=== PATIENT | female | born 1970 | race Caucasian/White ===

== ENCOUNTER 2019-10-19 17:50 | Emergency (ER) | payer BC ==
[2019-10-19] MEDS ORDERED: SODIUM CHLORIDE 0.9% 500 ML 500 ML IV STA (18:04)
[2019-10-19] MEDS ORDERED: SODIUM CHLORIDE 0.9% 1,000 ML IV STA ×2 (18:04)
[2019-10-19] MEDS ORDERED: MORPHINE SULFATE 4 MG/ML SYRINGE IV STA (18:04)
--- NOTE | 2019-10-19 18:05 | ED ---
Abdominal Pain HPI - General Chief Complaint: Abdominal Pain Stated Complaint: abdominal pain Time Seen by Provider: 10/19/19 18:01 Source: family, RN notes reviewed, old records reviewed Mode of arrival: wheelchair Limitations: altered mental status - History of Present Illness Initial Comments: this is a 49-year-old female dysuria for evaluation of severe epigastric abdominal pain and bloating. No history of abdominal surgeries the patient presents today for evaluation of history of GI bleed and symptoms occurred now that are similar to then. They deny find a source of her bleeding then. Symptoms began as afternoon and progressively worsening. Mild nausea no vomiting no chest pain or shortness of breath epigastric pain that is severe with no modifying factors. MD Complaint: abdominal pain -: hour(s) Location: epigastric Radiation: epigastric Migration to: no migration Severity: mild Severity scale (1-10): 3 Quality: cramping, stabbing, aching Consistency: constant Improves With: nothing Worsens With: nothing Associated Symptoms: nausea, vomiting - Related Data Home Medications Medication Instructions Recorded Confirmed Multivitamins, Thera [Multivitamin 1 tab PO DAILY 10/19/19 10/19/19 (formulary)] Allergies Allergy/AdvReac Type Severity Reaction Status Date / Time No Known Allergies Allergy Verified 10/19/19 20:38 Review of Systems ROS Statement: Those systems with pertinent positive or pertinent negative responses have been documented in the HPI. ROS Other: All systems not noted in ROS Statement are negative. Past Medical History Past Medical History: No Reported History History of Any Multi-Drug Resistant Organisms: None Reported Additional Past Surgical History / Comment(s): abdominal surgery Past Psychological History: No Psychological Hx Reported Smoking Status: Never smoker Past Alcohol Use History: None Reported Past Drug Use History: None Reported General Exam Limitations: altered mental status General appearance: alert, in no apparent distress Head exam: Present: atraumatic, normocephalic, normal inspection Eye exam: Present: normal appearance, PERRL, EOMI. Absent: scleral icterus, conjunctival injection, periorbital swelling ENT exam: Present: normal exam, mucous membranes moist Neck exam: Present: normal inspection. Absent: tenderness, meningismus, lymphadenopathy Respiratory exam: Present: normal lung sounds bilaterally. Absent: respiratory distress, wheezes, rales, rhonchi, stridor Cardiovascular Exam: Present: regular rate, normal rhythm, normal heart sounds. Absent: systolic murmur, diastolic murmur, rubs, gallop, clicks GI/Abdominal exam: Present: soft, tenderness (abdominal pain epigastric), normal bowel sounds. Absent: distended, guarding, rebound, rigid Extremities exam: Present: normal inspection, full ROM, normal capillary refill. Absent: tenderness, pedal edema, joint swelling, calf tenderness Back exam: Present: normal inspection Neurological exam: Present: alert, oriented X3, CN II-XII intact Psychiatric exam: Present: normal affect, normal mood Skin exam: Present: warm, dry, intact, normal color. Absent: rash Course Vital Signs 10/19/19 10/19/19 10/19/19 17:52 18:08 18:10 Temperature 98.0 F Pulse Rate 84 89 Respiratory 18 14 32 H Rate Blood Pressure 177/94 156/71 O2 Sat by Pulse 98 98 98 Oximetry 10/19/19 10/19/19 10/19/19 18:30 18:50 19:00 Temperature Pulse Rate 84 81 82 Respiratory 14 18 14 Rate Blood Pressure 156/71 158/83 158/83 O2 Sat by Pulse 98 93 L 98 Oximetry - Reevaluation(s) Reevaluation #1: 10/19/19 21:31 records reviewed Reevaluation #2: 10/19/19 21:31 no significant findings for abdominal pain, no current pain Medical Decision Making - Medical Decision Making 49 female here for evaluation of abdominal pain. Patient karen computed tomography scan labwork is normal tolerate oral intake and pain is controlled. Patient will be discharged home - Lab Data Result diagrams: 10/19/19 18:14 10/19/19 18:14 Lab Results 10/19/19 10/19/19 10/19/19 Range/Units 18:04 18:14 18:14 WBC 15.5 H (3.8-10.6) k/uL RBC 4.38 (3.80-5.40) m/uL Hgb 13.3 (11.4-16.0) gm/dL Hct 39.8 (34.0-46.0) % MCV 90.9 (80.0-100.0) fL MCH 30.3 (25.0-35.0) pg MCHC 33.3 (31.0-37.0) g/dL RDW 13.0 (11.5-15.5) % Plt Count 305 (150-450) k/uL Neutrophils % 87 % Lymphocytes % 7 % Monocytes % 4 % Eosinophils % 1 % Basophils % 1 % Neutrophils # 13.5 H (1.3-7.7) k/uL Lymphocytes # 1.0 (1.0-4.8) k/uL Monocytes # 0.6 (0-1.0) k/uL Eosinophils # 0.1 (0-0.7) k/uL Basophils # 0.2 (0-0.2) k/uL PT (9.0-12.0) sec INR (<1.2) APTT (22.0-30.0) sec D-Dimer (<0.60) mg/L FEU Sodium 139 (137-145) mmol/L Potassium 3.9 (3.5-5.1) mmol/L Chloride 105 (98-107) mmol/L Carbon Dioxide 23 (22-30) mmol/L Anion Gap 11 mmol/L BUN 13 (7-17) mg/dL Creatinine 0.76 (0.52-1.04) mg/dL Est GFR (CKD-EPI)AfAm >90 (>60 ml/min/1.73 sqM) Est GFR (CKD-EPI)NonAf >90 (>60 ml/min/1.73 sqM) Glucose 149 H (74-99) mg/dL POC Glucose (mg/dL) 159 H (75-99) mg/dL POC Glu Size Maker ID Rosemary Montano Plasma Lactic Acid Regis (0.7-2.0) mmol/L Calcium 9.6 (8.4-10.2) mg/dL Phosphorus 1.5 L (2.5-4.5) mg/dL Magnesium 1.8 (1.6-2.3) mg/dL Total Bilirubin 0.4 (0.2-1.3) mg/dL AST 32 (14-36) U/L ALT 34 (4-34) U/L Alkaline Phosphatase 102 (38-126) U/L Creatine Kinase 118 (30-135) U/L Troponin I (0.000-0.034) ng/mL NT-Pro-B Natriuret Pep pg/mL Total Protein 8.0 (6.3-8.2) g/dL Albumin 4.5 (3.5-5.0) g/dL Lipase (23-300) U/L Urine Color Urine Appearance (Clear) Urine pH (5.0-8.0) Ur Specific [place] (1.001-1.035) Urine Protein (Negative) Urine Glucose (UA) (Negative) Urine Ketones (Negative) Urine Blood (Negative) Urine Nitrite (Negative) Urine Bilirubin (Negative) Urine Urobilinogen (<2.0) mg/dL Ur Leukocyte Esterase (Negative) Blood Type Blood Type Recheck Bld Type Recheck Status Antibody Screen Spec Expiration Date 10/19/19 10/19/19 10/19/19 Range/Units 18:14 18:14 18:14 WBC (3.8-10.6) k/uL RBC (3.80-5.40) m/uL Hgb (11.4-16.0) gm/dL Hct (34.0-46.0) % MCV (80.0-100.0) fL MCH (25.0-35.0) pg MCHC (31.0-37.0) g/dL RDW (11.5-15.5) % Plt Count (150-450) k/uL Neutrophils % % Lymphocytes % % Monocytes % % Eosinophils % % Basophils % % Neutrophils # (1.3-7.7) k/uL Lymphocytes # (1.0-4.8) k/uL Monocytes # (0-1.0) k/uL Eosinophils # (0-0.7) k/uL Basophils # (0-0.2) k/uL PT 9.7 (9.0-12.0) sec INR 0.9 (<1.2) APTT 24.7 (22.0-30.0) sec D-Dimer 0.40 (<0.60) mg/L FEU Sodium (137-145) mmol/L Potassium (3.5-5.1) mmol/L Chloride (98-107) mmol/L Carbon Dioxide (22-30) mmol/L Anion Gap mmol/L BUN (7-17) mg/dL Creatinine (0.52-1.04) mg/dL Est GFR (CKD-EPI)AfAm (>60 ml/min/1.73 sqM) Est GFR (CKD-EPI)NonAf (>60 ml/min/1.73 sqM) Glucose (74-99) mg/dL POC Glucose (mg/dL) (75-99) mg/dL POC Glu Size Maker ID Plasma Lactic Acid Regis 3.0 H* (0.7-2.0) mmol/L Calcium (8.4-10.2) mg/dL Phosphorus (2.5-4.5) mg/dL Magnesium (1.6-2.3) mg/dL Total Bilirubin (0.2-1.3) mg/dL AST (14-36) U/L ALT (4-34) U/L Alkaline Phosphatase (38-126) U/L Creatine Kinase (30-135) U/L Troponin I (0.000-0.034) ng/mL NT-Pro-B Natriuret Pep 165 pg/mL Total Protein (6.3-8.2) g/dL Albumin (3.5-5.0) g/dL Lipase (23-300) U/L Urine Color Urine Appearance (Clear) Urine pH (5.0-8.0) Ur Specific [place] (1.001-1.035) Urine Protein (Negative) Urine Glucose (UA) (Negative) Urine Ketones (Negative) Urine Blood (Negative) Urine Nitrite (Negative) Urine Bilirubin (Negative) Urine Urobilinogen (<2.0) mg/dL Ur Leukocyte Esterase (Negative) Blood Type Blood Type Recheck Bld Type Recheck Status Antibody Screen Spec Expiration Date 10/19/19 10/19/19 10/19/19 Range/Units 18:14 18:14 18:14 WBC (3.8-10.6) k/uL RBC (3.80-5.40) m/uL Hgb (11.4-16.0) gm/dL Hct (34.0-46.0) % MCV (80.0-100.0) fL MCH (25.0-35.0) pg MCHC (31.0-37.0) g/dL RDW (11.5-15.5) % Plt Count (150-450) k/uL Neutrophils % % Lymphocytes % % Monocytes % % Eosinophils % % Basophils % % Neutrophils # (1.3-7.7) k/uL Lymphocytes # (1.0-4.8) k/uL Monocytes # (0-1.0) k/uL Eosinophils # (0-0.7) k/uL Basophils # (0-0.2) k/uL PT (9.0-12.0) sec INR (<1.2) APTT (22.0-30.0) sec D-Dimer (<0.60) mg/L FEU Sodium (137-145) mmol/L Potassium (3.5-5.1) mmol/L Chloride (98-107) mmol/L Carbon Dioxide (22-30) mmol/L Anion Gap mmol/L BUN (7-17) mg/dL Creatinine (0.52-1.04) mg/dL Est GFR (CKD-EPI)AfAm (>60 ml/min/1.73 sqM) Est GFR (CKD-EPI)NonAf (>60 ml/min/1.73 sqM) Glucose (74-99) mg/dL POC Glucose (mg/dL) (75-99) mg/dL POC Glu Size Maker ID Plasma Lactic Acid Regis (0.7-2.0) mmol/L Calcium (8.4-10.2) mg/dL Phosphorus (2.5-4.5) mg/dL Magnesium (1.6-2.3) mg/dL Total Bilirubin (0.2-1.3) mg/dL AST (14-36) U/L ALT (4-34) U/L Alkaline Phosphatase (38-126) U/L Creatine Kinase (30-135) U/L Troponin I <0.012 (0.000-0.034) ng/mL NT-Pro-B Natriuret Pep pg/mL Total Protein (6.3-8.2) g/dL Albumin (3.5-5.0) g/dL Lipase 108 (23-300) U/L Urine Color Urine Appearance (Clear) Urine pH (5.0-8.0) Ur Specific [place] (1.001-1.035) Urine Protein (Negative) Urine Glucose (UA) (Negative) Urine Ketones (Negative) Urine Blood (Negative) Urine Nitrite (Negative) Urine Bilirubin (Negative) Urine Urobilinogen (<2.0) mg/dL Ur Leukocyte Esterase (Negative) Blood Type O Positive Blood Type Recheck O Pos Bld Type Recheck Status No Antibody Screen NEGATIVE Spec Expiration Date 10/22/2019 - 231310/19/19 Range/Units 19:32 WBC (3.8-10.6) k/uL RBC (3.80-5.40) m/uL Hgb (11.4-16.0) gm/dL Hct (34.0-46.0) % MCV (80.0-100.0) fL MCH (25.0-35.0) pg MCHC (31.0-37.0) g/dL RDW (11.5-15.5) % Plt Count (150-450) k/uL Neutrophils % % Lymphocytes % % Monocytes % % Eosinophils % % Basophils % % Neutrophils # (1.3-7.7) k/uL Lymphocytes # (1.0-4.8) k/uL Monocytes # (0-1.0) k/uL Eosinophils # (0-0.7) k/uL Basophils # (0-0.2) k/uL PT (9.0-12.0) sec INR (<1.2) APTT (22.0-30.0) sec D-Dimer (<0.60) mg/L FEU Sodium (137-145) mmol/L Potassium (3.5-5.1) mmol/L Chloride (98-107) mmol/L Carbon Dioxide (22-30) mmol/L Anion Gap mmol/L BUN (7-17) mg/dL Creatinine (0.52-1.04) mg/dL Est GFR (CKD-EPI)AfAm (>60 ml/min/1.73 sqM) Est GFR (CKD-EPI)NonAf (>60 ml/min/1.73 sqM) Glucose (74-99) mg/dL POC Glucose (mg/dL) (75-99) mg/dL POC Glu Size Maker ID Plasma Lactic Acid Regis (0.7-2.0) mmol/L Calcium (8.4-10.2) mg/dL Phosphorus (2.5-4.5) mg/dL Magnesium (1.6-2.3) mg/dL Total Bilirubin (0.2-1.3) mg/dL AST (14-36) U/L ALT (4-34) U/L Alkaline Phosphatase (38-126) U/L Creatine Kinase (30-135) U/L Troponin I (0.000-0.034) ng/mL NT-Pro-B Natriuret Pep pg/mL Total Protein (6.3-8.2) g/dL Albumin (3.5-5.0) g/dL Lipase (23-300) U/L Urine Color Light Yellow Urine Appearance Clear (Clear) Urine pH 8.5 H (5.0-8.0) Ur Specific [place] 1.018 (1.001-1.035) Urine Protein Negative (Negative) Urine Glucose (UA) Trace H (Negative) Urine Ketones Negative (Negative) Urine Blood Negative (Negative) Urine Nitrite Negative (Negative) Urine Bilirubin Negative (Negative) Urine Urobilinogen <2.0 (<2.0) mg/dL Ur Leukocyte Esterase Negative (Negative) Blood Type Blood Type Recheck Bld Type Recheck Status Antibody Screen Spec Expiration Date - EKG Data -: EKG Interpreted by Me (EKG shows sinus rhythmrate of 99, IL 186, QRS 84, QTC 410) - Radiology Data Radiology results: report reviewed (CTA chest and pelvis is negative for acute disease), image reviewed Disposition Clinical Impression: Abdominal pain Disposition: HOME SELF-CARE Condition: Good Instructions (If sedation given, give patient instructions): Abdominal Pain (ED) Is patient prescribed a controlled substance at d/c from ED?: No Referrals: None,Stated [Primary Care Provider] - 1-2 days
[2019-10-19 18:09] LABS: Glucose,Whole Blood 159 mg/dL (75-99)
[2019-10-19 18:24] LABS: Basophils # (A) 0.2 k/uL (0-0.2); Basophils % (A) 1 %; Eosinophils # (A) 0.1 k/uL (0-0.7); Eosinophils % (A) 1 %; HCT 39.8 % (34.0-46.0); HGB 13.3 gm/dL (11.4-16.0); Lymphocytes % (A) 7 %; MCH 30.3 pg (25.0-35.0); MCHC 33.3 g/dL (31.0-37.0); MCV 90.9 fL (80.0-100.0); Mean Platelet Volume 7.9; Monocytes # (A) 0.6 k/uL (0-1.0); Monocytes % (A) 4 %; Neutrophils # (A) 13.5 k/uL (1.3-7.7); Neutrophils % (A) 87 %; Platelet Count 305 k/uL (150-450); RBC 4.38 m/uL (3.80-5.40); WBC 15.5 k/uL (3.8-10.6)
[2019-10-19] MEDS ORDERED: ONDANSETRON 4 MG/2 ML VIAL IVP STA (18:37)
[2019-10-19] MEDS ORDERED: PANTOPRAZOLE 40 MG/10 ML VIAL IVP STA (18:37)
[2019-10-19 18:38] LABS: D-Dimer 0.4 mg/L FEU (<0.60); INR 0.9 (<1.2); Partial Thromboplastin Time 24.7 sec (22.0-30.0); Prothrombin Time 9.7 sec (9.0-12.0)
[2019-10-19 18:42] LABS: ALT 34 U/L (4-34); AST 32 U/L (14-36); African American GFR (CKD) >90 (>60 ml/min/1.73 sqM); Albumin 4.5 g/dL (3.5-5.0); Alkaline Phosphatase 102 U/L (38-126); Anion Gap 11 mmol/L; Blood Urea Nitrogen 13 mg/dL (7-17); Calcium 9.6 mg/dL (8.4-10.2); Carbon Dioxide 23 mmol/L (22-30); Chloride 105 mmol/L (98-107); Creatine Kinase 118 U/L (30-135); Glucose 149 mg/dL (74-99); Magnesium 1.8 mg/dL (1.6-2.3); Non-African American GFR(CKD) >90 (>60 ml/min/1.73 sqM); Phosphorus 1.5 mg/dL (2.5-4.5); Potassium 3.9 mmol/L (3.5-5.1); Sodium 139 mmol/L (137-145); Total Bilirubin 0.4 mg/dL (0.2-1.3)
[2019-10-19 19:43] LABS: Appearance,Urine Clear (Clear); Bilirubin,Urine Negative (Negative); Blood,Urine Negative (Negative); Color,Urine Light Yellow; Glucose,Urine (UA) Trace (Negative); Ketones,Urine Negative (Negative); Leukocyte Esterase,Urine Negative (Negative); Nitrite,Urine Negative (Negative); PH, Urine 8.5 (5.0-8.0); Protein,Urine Negative (Negative); Specific Gravity,Urine 1.018 (1.001-1.035); Urobilinogen,Urine <2.0 mg/dL (<2.0)
--- NOTE | 2019-10-19 20:03 | CT ---
EXAMINATION TYPE: CT angio chest DATE OF EXAM: 10/19/2019 COMPARISON: None HISTORY: chest pain CT DLP: 348 mGycm Automated exposure control for dose reduction was used. CONTRAST: Performed with IV Contrast, patient injected with 100 mL of Isovue 370. There are 3-D post processed images. Thoracic aorta is intact. There is no aneurysm or dissection. There is no mediastinal adenopathy. The re are no hilar masses. There is normal contrast opacification of the pulmonary arteries. There are n o filling defects. Heart size is normal. There is no pericardial effusion. There is no pleural effusi on. There is mild subsegmental atelectasis at the lung bases. There is no evidence of a pulmonary mas s. There is mild spurring in the thoracic spine. I see no compression fracture. The sternum is intact . The ribs appear intact. IMPRESSION: No evidence of pulmonary embolism. Minimal subsegmental atelectasis at the lung bases. No pulmonary c onsolidation.
--- NOTE | 2019-10-19 21:08 | CT ---
EXAMINATION TYPE: CT abdomen pelvis w con DATE OF EXAM: 10/19/2019 COMPARISON: None HISTORY: chest pain CT DLP: 1050 mGycm Automated exposure control for dose reduction was used. CONTRAST: Performed with IV Contrast, patient injected with 100 mL of Isovue 370. Multiple axial sections were obtained from the diaphragm to the floor the pelvis with intravenous con trast. There is mild subsegmental atelectasis at the right lung base. There is no pleural effusion. Heart si ze is normal. There is no pericardial effusion. Liver spleen stomach pancreas gallbladder appear normal. Bile ducts are not dilated. There is no adrenal mass. Kidneys show satisfactory contrast opacification. There is no hydronephrosi s. Ureters are not dilated. Delayed images show normal renal excretion. There is no retroperitoneal a denopathy. Bladder distends smoothly. There is no inguinal hernia. There is no free fluid in the pelv is. There is 3 cm cyst on the right ovary. Appendix appears normal. There is no ascites. There is no free air. There is no mesenteric edema. There is no sign of a bowel obstruction. Lumbar vertebra have normal spacing and alignment. There is no compression fracture. I s ee no bony destructive process. Bony pelvis is intact. IMPRESSION: Right ovarian cyst. Otherwise negative CT scan abdomen and pelvis. Normal appendix.
[2019-10-19 21:41] VITALS: BP 156/82; PULSE 80; RESP 18; TEMP 98.6
== END 2019-10-19 21:47 | disposition home or self-care (01) ==
LOC: EC 17:50
DX: R10.13 Epigastric pain (principal); R11.2 Nausea with vomiting, unspecified
CPT/HCPCS: 36415; 93005; 86900; 86901; 85379; 83880; 80053; 82550; 83605; 83690; 83735; 84100; 84484; 85025; 85610; 85730; 86850; 81003; 71275; 74177; 99285; 96374; 96375 ×2; 96361; J2270; J2405; C9113; Q9967

== ENCOUNTER 2019-10-23 11:10 | Inpatient (IN) | payer BC ==
[2019-10-23] MEDS ORDERED: SODIUM CHLORIDE 0.9% 1,000 ML IV STA ×2 (12:01→12:54)
[2019-10-23] MEDS ORDERED: PANTOPRAZOLE 40 MG/10 ML VIAL IVP STA (12:01)
[2019-10-23] MEDS ORDERED: DICYCLOMINE 10 MG/ML 2 ML AMP IM STA (12:01)
[2019-10-23] MEDS ORDERED: ONDANSETRON 4 MG/2 ML VIAL IVP STA (12:01)
[2019-10-23] MEDS ORDERED: MORPHINE SULFATE 4 MG/ML SYRINGE IVP STA (12:21)
[2019-10-23 12:26] LABS: Basophils # (A) 0.1 k/uL (0-0.2); Basophils % (A) 0 %; Eosinophils # (A) 0.4 k/uL (0-0.7); Eosinophils % (A) 2 %; HCT 38.5 % (34.0-46.0); Lymphocytes # (A) 1.3 k/uL (1.0-4.8); Lymphocytes % (A) 8 %; MCH 30.4 pg (25.0-35.0); MCHC 33.9 g/dL (31.0-37.0); MCV 89.7 fL (80.0-100.0); Mean Platelet Volume 7.7; Monocytes % (A) 6 %; Neutrophils # (A) 13.6 k/uL (1.3-7.7); Neutrophils % (A) 83 %; Platelet Count 354 k/uL (150-450); RBC 4.29 m/uL (3.80-5.40); RDW 12.9 % (11.5-15.5); WBC 16.4 k/uL (3.8-10.6)
[2019-10-23 12:29] LABS: Amorphous Sediment,Urine Occasional /hpf; Appearance,Urine Cloudy (Clear); Bilirubin,Urine Negative (Negative); Blood,Urine Moderate (Negative); Color,Urine Yellow; Glucose,Urine (UA) Negative (Negative); Ketones,Urine 3+ (Negative); Leukocyte Esterase,Urine Small (Negative); Mucus,Urine Occasional /hpf; Nitrite,Urine Negative (Negative); PH, Urine 6.5 (5.0-8.0); Protein,Urine 1+ (Negative); RBC,Urine 26 /hpf (0-5); Specific Gravity,Urine 1.025 (1.001-1.035); Squamous Epithelial Cell,Urine 18 /hpf (0-4); WBC,Urine 8 /hpf (0-5)
[2019-10-23 12:35] LABS: ALT 54 U/L (4-34); AST 66 U/L (14-36); African American GFR (CKD) >90 (>60 ml/min/1.73 sqM); Albumin 4.3 g/dL (3.5-5.0); Alkaline Phosphatase 149 U/L (38-126); Amylase 42 U/L (30-110); Anion Gap 10 mmol/L; Blood Urea Nitrogen 12 mg/dL (7-17); Calcium 9.4 mg/dL (8.4-10.2); Carbon Dioxide 27 mmol/L (22-30); Chloride 103 mmol/L (98-107); Glucose 115 mg/dL (74-99); Non-African American GFR(CKD) >90 (>60 ml/min/1.73 sqM); Sodium 140 mmol/L (137-145); Total Bilirubin 1.1 mg/dL (0.2-1.3); Total Protein 8.1 g/dL (6.3-8.2)
--- NOTE | 2019-10-23 12:54 | ED ---
Abdominal Pain HPI - General Chief Complaint: Abdominal Pain Stated Complaint: gallbladder pain Time Seen by Provider: 10/23/19 11:56 Source: patient Mode of arrival: ambulatory Limitations: no limitations - History of Present Illness Initial Comments: Patient is a 49-year-old female presented to emergency Department with a chief complaint of abdominal pain. Patient reports she was in the ED about a week ago with the exact same symptoms and was told that he could be either a gallbladder issue or an ulcer. Patient reports left upper quadrant, epigastric and right upper quadrant pain that comes in waves. However, over the last 1 day the pain has increased in severity and rages between 7 and 10. Patient reports the pain is not related to by mouth intake. She also reports a fever that she has been able to control with antipyretics [id number]. Does report intermittent nausea but denies any vomiting because she is barely eating any food. Denies any constipation or diarrhea. Denies urgency frequency or dysuria. Denies any vaginal bleeding or discharge. Some shortness of breath and for aspiration due to the pain in the upper abdomen. No history of abdominal surgeries. - Related Data Home Medications Medication Instructions Recorded Confirmed Multivitamins, Thera [Multivitamin 1 tab PO DAILY 10/19/19 10/19/19 (formulary)] Allergies Allergy/AdvReac Type Severity Reaction Status Date / Time Latex, Natural Rubber Allergy Swelling Verified 10/23/19 11:36 Review of Systems ROS Statement: Those systems with pertinent positive or pertinent negative responses have been documented in the HPI. ROS Other: All systems not noted in ROS Statement are negative. Past Medical History Past Medical History: No Reported History History of Any Multi-Drug Resistant Organisms: None Reported Additional Past Surgical History / Comment(s): abdominal surgery Past Psychological History: No Psychological Hx Reported Smoking Status: Never smoker Past Alcohol Use History: None Reported Past Drug Use History: None Reported General Exam Limitations: no limitations General appearance: alert, in no apparent distress Head exam: Present: atraumatic, normocephalic, normal inspection Eye exam: Present: normal appearance, PERRL, EOMI Pupils: Present: normal accommodation ENT exam: Present: normal exam, normal oropharynx, mucous membranes moist Neck exam: Present: normal inspection, full ROM Respiratory exam: Present: normal lung sounds bilaterally. Absent: respiratory distress, wheezes, rales Cardiovascular Exam: Present: regular rate, normal rhythm, normal heart sounds GI/Abdominal exam: Present: soft, tenderness (Positive Davis., Left upper quadrant, epigastric and right upper quadrant tenderness.). Absent: distended, guarding, rebound, rigid Extremities exam: Present: normal inspection, full ROM Back exam: Present: normal inspection, full ROM Neurological exam: Present: alert, oriented X3 Psychiatric exam: Present: normal affect, normal mood Skin exam: Present: warm, dry, intact, normal color Course Vital Signs 10/23/19 10/23/19 10/23/19 11:30 13:00 13:51 Temperature 98 F Pulse Rate 98 93 91 Respiratory 18 16 16 Rate Blood Pressure 167/86 168/94 O2 Sat by Pulse 98 97 97 Oximetry Medical Decision Making - Medical Decision Making Patient is a 49-year-old female presenting to emergency Department with a chief complaint of abdominal pain, nausea vomiting or fever. Patient on exam does appear to be slightly in distress. She does have a positive Davis sign with right upper quadrant, epigastric and left upper quadrant abdominal pain. Patient is clammy. Pain is currently about an 8. CBC shows leukocytosis. CMP shows elevated liver enzymes. Right upper quadrant ultrasound shows signs of acute cholecystitis. Patient given fluids, 10 metas, analgesia and IV an tibiotics. Surgical consult with Dr. Harding. Patient will be admitted. Case discussed with Dr. Medel. Admitted physician is Dr. Harding - Lab Data Result diagrams: 10/23/19 12:12 10/23/19 12:12 Lab Results 10/23/19 10/23/19 10/23/19 Range/Units 12:12 12:12 12:12 WBC 16.4 H (3.8-10.6) k/uL RBC 4.29 (3.80-5.40) m/uL Hgb 13.0 (11.4-16.0) gm/dL Hct 38.5 (34.0-46.0) % MCV 89.7 (80.0-100.0) fL MCH 30.4 (25.0-35.0) pg MCHC 33.9 (31.0-37.0) g/dL RDW 12.9 (11.5-15.5) % Plt Count 354 (150-450) k/uL Neutrophils % 83 % Lymphocytes % 8 % Monocytes % 6 % Eosinophils % 2 % Basophils % 0 % Neutrophils # 13.6 H (1.3-7.7) k/uL Lymphocytes # 1.3 (1.0-4.8) k/uL Monocytes # 1.0 (0-1.0) k/uL Eosinophils # 0.4 (0-0.7) k/uL Basophils # 0.1 (0-0.2) k/uL Sodium 140 (137-145) mmol/L Potassium 4.0 (3.5-5.1) mmol/L Chloride 103 (98-107) mmol/L Carbon Dioxide 27 (22-30) mmol/L Anion Gap 10 mmol/L BUN 12 (7-17) mg/dL Creatinine 0.55 (0.52-1.04) mg/dL Est GFR (CKD-EPI)AfAm >90 (>60 ml/min/1.73 sqM) Est GFR (CKD-EPI)NonAf >90 (>60 ml/min/1.73 sqM) Glucose 115 H (74-99) mg/dL Plasma Lactic Acid Regis (0.7-2.0) mmol/L Calcium 9.4 (8.4-10.2) mg/dL Total Bilirubin 1.1 (0.2-1.3) mg/dL AST 66 H (14-36) U/L ALT 54 H (4-34) U/L Alkaline Phosphatase 149 H (38-126) U/L Troponin I (0.000-0.034) ng/mL Total Protein 8.1 (6.3-8.2) g/dL Albumin 4.3 (3.5-5.0) g/dL Amylase 42 (30-110) U/L Lipase 71 (23-300) U/L Urine Color Yellow Urine Appearance Cloudy H (Clear) Urine pH 6.5 (5.0-8.0) Ur Specific [place] 1.025 (1.001-1.035) Urine Protein 1+ H (Negative) Urine Glucose (UA) Negative (Negative) Urine Ketones 3+ H (Negative) Urine Blood Moderate H (Negative) Urine Nitrite Negative (Negative) Urine Bilirubin Negative (Negative) Urine Urobilinogen 2.0 (<2.0) mg/dL Ur Leukocyte Esterase Small H (Negative) Urine RBC 26 H (0-5) /hpf Urine WBC 8 H (0-5) /hpf Ur Squamous Epith Cells 18 H (0-4) /hpf Amorphous Sediment Occasional H (None) /hpf Urine Mucus Occasional H (None) /hpf 10/23/19 10/23/19 Range/Units 12:12 12:12 WBC (3.8-10.6) k/uL RBC (3.80-5.40) m/uL Hgb (11.4-16.0) gm/dL Hct (34.0-46.0) % MCV (80.0-100.0) fL MCH (25.0-35.0) pg MCHC (31.0-37.0) g/dL RDW (11.5-15.5) % Plt Count (150-450) k/uL Neutrophils % % Lymphocytes % % Monocytes % % Eosinophils % % Basophils % % Neutrophils # (1.3-7.7) k/uL Lymphocytes # (1.0-4.8) k/uL Monocytes # (0-1.0) k/uL Eosinophils # (0-0.7) k/uL Basophils # (0-0.2) k/uL Sodium (137-145) mmol/L Potassium (3.5-5.1) mmol/L Chloride (98-107) mmol/L Carbon Dioxide (22-30) mmol/L Anion Gap mmol/L BUN (7-17) mg/dL Creatinine (0.52-1.04) mg/dL Est GFR (CKD-EPI)AfAm (>60 ml/min/1.73 sqM) Est GFR (CKD-EPI)NonAf (>60 ml/min/1.73 sqM) Glucose (74-99) mg/dL Plasma Lactic Acid Regis 1.2 (0.7-2.0) mmol/L Calcium (8.4-10.2) mg/dL Total Bilirubin (0.2-1.3) mg/dL AST (14-36) U/L ALT (4-34) U/L Alkaline Phosphatase (38-126) U/L Troponin I <0.012 (0.000-0.034) ng/mL Total Protein (6.3-8.2) g/dL Albumin (3.5-5.0) g/dL Amylase (30-110) U/L Lipase (23-300) U/L Urine Color Urine Appearance (Clear) Urine pH (5.0-8.0) Ur Specific [place] (1.001-1.035) Urine Protein (Negative) Urine Glucose (UA) (Negative) Urine Ketones (Negative) Urine Blood (Negative) Urine Nitrite (Negative) Urine Bilirubin (Negative) Urine Urobilinogen (<2.0) mg/dL Ur Leukocyte Esterase (Negative) Urine RBC (0-5) /hpf Urine WBC (0-5) /hpf Ur Squamous Epith Cells (0-4) /hpf Amorphous Sediment (None) /hpf Urine Mucus (None) /hpf - EKG Data EKG Comments: Normal sinus rhythm, no ST changes Ventricular rate 92, MI interval 154, saturation 70, QTc 427. Disposition Clinical Impression: Acute cholecystitis Disposition: ADMITTED IP TO THIS HOSP Condition: Stable Instructions (If sedation given, give patient instructions): Cholecystitis (ED) Additional Instructions: Patient will be admitted Is patient prescribed a controlled substance at d/c from ED?: No Referrals: None,Stated [Primary Care Provider] - 1-2 days Time of Disposition: 14:24
--- NOTE | 2019-10-23 13:47 | US ---
EXAMINATION TYPE: US abdomen limited DATE OF EXAM: 10/23/2019 COMPARISON: CT 4 days ago CLINICAL HISTORY: ruq. Pain. Difficult and limited exam due to overlying bowel gas EXAM MEASUREMENTS: Liver Length: 15.1 cm Gallbladder Wall: 0.8 cm CBD: 0.7 cm Right Kidney: 10.7 x 4.5 x 3.9 cm Pancreas: Obscured by bowel gas Liver: wnl Gallbladder: Wall thickened with pericholecystic fluid visualized. Sludge visualized Evidence for sonographic Davis's sign: Yes CBD: Dilated, distal portion obscured by bowel gas Right Kidney: No hydronephrosis or masses seen Suboptimal evaluation of pancreas on initial images which appeared within normal limits on CT 4 days ago. Visualized liver shows no worrisome mass or ductal dilatation. Slight heterogeneity is present. Gallbladder shows dependent small stones and/or gallbladder sludge. Gallbladder wall is thickened and irregular with trace surrounding fluid. Findings new from prior CT. IMPRESSION: In patient with right upper quadrant pain, sonographic findings are consistent with acute cholecystitis. Surgical consultation advised.
[2019-10-23] MEDS ORDERED: PIPERACILLIN-TAZOBACTAM 3.375 GM in SODIUM CHLORIDE 0.9% 100 ML IVPB STA (14:13)
[2019-10-23] MEDS ORDERED: VANCOMYCIN IV PER PHARMACY 1 EACH MISC MISCELLANE PRN (14:13)
[2019-10-23] MEDS ORDERED: VANCOMYCIN 1,500 MG in SODIUM CHLORIDE 0.9% 250 ML IVPB STA (14:15)
[2019-10-23] MEDS ORDERED: NALOXONE 0.4 MG/ML 1 ML VIAL IV PRN (14:21)
[2019-10-23] MEDS ORDERED: HYDROmorphone 0.5 MG/0.5 ML SYRINGE IVP PRN (14:21)
--- NOTE | 2019-10-23 15:14 | P.GSHP ---
History of Present Illness H&P Date: 10/23/19 Chief Complaint: Abdominal pain The patient who presented with abdominal pain. The pain began suddenly on Saturday. She came into the emergency department and had a workup at that time. Her CT was unremarkable. Her liver function tests were normal. The CBC and lactic acid were elevated. She was discharged home. She returned today because she's been worsening. She's been running fevers. She has nausea and has not been able to eat. She is drinking little. Denies jaundice, acholic stool, tea- colored urine. No prior history of fatty food dyscrasias. She has had prior abdominal surgery. She has a pelvic laparotomy for a ruptured ovarian cyst and another laparotomy for bleeding in the pelvis. - Review of Systems All systems: negative - Hematologic/Lymphatic Hematologic/Lymphatic: Reports easy bruising (Prior PT/INR were within normal range) Past Medical History Past Medical History: No Reported History History of Any Multi-Drug Resistant Organisms: None Reported Additional Past Surgical History / Comment(s): abdominal surgery Past Psychological History: No Psychological Hx Reported Smoking Status: Never smoker Past Alcohol Use History: None Reported Past Drug Use History: None Reported Medications and Allergies Home Medications Medication Instructions Recorded Confirmed Type Multivitamins, Thera [Multivitamin 1 tab PO DAILY 10/19/19 10/23/19 History (formulary)] Allergies Allergy/AdvReac Type Severity Reaction Status Date / Time Latex, Natural Rubber Allergy Swelling Verified 10/23/19 14:30 Surgical - Exam Osteopathic Statement: *. No significant issues noted on an osteopathic structural exam other than those noted in the History and Physical/Consult. Vital Signs Temp Pulse Resp BP Pulse Ox 98 F 98 18 167/86 98 10/23/19 11:30 10/23/19 11:30 10/23/19 11:30 10/23/19 11:30 10/23/19 11:30 - General well developed, well nourished, no distress - Eyes normal ocular movement - ENT normal mucosa - Neck trachea midline - Respiratory normal expansion, clear to auscultation - Cardiovascular Rhythm: regular Abnormal Heart Sounds: no systolic murmur - Abdomen Abdomen: soft, tender (Right upper quadrant with mild guarding), surgical scars (Pfannenstiel scar), no rigid, no rebound, no distended Hernia: no umbilical - Psychiatric oriented to time, oriented to person, oriented to place, speech is normal, gertrude ry intact Results - Labs 10/23/19 12:12 10/23/19 12:12 Abnormal Lab Results - Last 24 Hours (Table) 10/23/19 10/23/19 10/23/19 Range/Units 12:12 12:12 12:12 WBC 16.4 H (3.8-10.6) k/uL Neutrophils # 13.6 H (1.3-7.7) k/uL Glucose 115 H (74-99) mg/dL AST 66 H (14-36) U/L ALT 54 H (4-34) U/L Alkaline Phosphatase 149 H (38-126) U/L Urine Appearance Cloudy H (Clear) Urine Protein 1+ H (Negative) Urine Ketones 3+ H (Negative) Urine Blood Moderate H (Negative) Ur Leukocyte Esterase Small H (Negative) Urine RBC 26 H (0-5) /hpf Urine WBC 8 H (0-5) /hpf Ur Squamous Epith Cells 18 H (0-4) /hpf Amorphous Sediment Occasional H (None) /hpf Urine Mucus Occasional H (None) /hpf Diabetes panel 10/23/19 Range/Units 12:12 Sodium 140 (137-145) mmol/L Potassium 4.0 (3.5-5.1) mmol/L Chloride 103 (98-107) mmol/L Carbon Dioxide 27 (22-30) mmol/L BUN 12 (7-17) mg/dL Creatinine 0.55 (0.52-1.04) mg/dL Glucose 115 H (74-99) mg/dL Calcium 9.4 (8.4-10.2) mg/dL AST 66 H (14-36) U/L ALT 54 H (4-34) U/L Alkaline Phosphatase 149 H (38-126) U/L Total Protein 8.1 (6.3-8.2) g/dL Albumin 4.3 (3.5-5.0) g/dL Calcium panel 10/23/19 Range/Units 12:12 Calcium 9.4 (8.4-10.2) mg/dL Albumin 4.3 (3.5-5.0) g/dL Pituitary panel 10/23/19 Range/Units 12:12 Sodium 140 (137-145) mmol/L Potassium 4.0 (3.5-5.1) mmol/L Chloride 103 (98-107) mmol/L Carbon Dioxide 27 (22-30) mmol/L BUN 12 (7-17) mg/dL Creatinine 0.55 (0.52-1.04) mg/dL Glucose 115 H (74-99) mg/dL Calcium 9.4 (8.4-10.2) mg/dL Adrenal panel 10/23/19 Range/Units 12:12 Sodium 140 (137-145) mmol/L Potassium 4.0 (3.5-5.1) mmol/L Chloride 103 (98-107) mmol/L Carbon Dioxide 27 (22-30) mmol/L BUN 12 (7-17) mg/dL Creatinine 0.55 (0.52-1.04) mg/dL Glucose 115 H (74-99) mg/dL Calcium 9.4 (8.4-10.2) mg/dL Total Bilirubin 1.1 (0.2-1.3) mg/dL AST 66 H (14-36) U/L ALT 54 H (4-34) U/L Alkaline Phosphatase 149 H (38-126) U/L Total Protein 8.1 (6.3-8.2) g/dL Albumin 4.3 (3.5-5.0) g/dL - Imaging US - abdomen: report reviewed Assessment and Plan (1) Acute cholecystitis Current Visit: Yes Status: Acute Code(s): K81.0 - ACUTE CHOLECYSTITIS SNOMED Code(s): 75167007 (2) Abdominal pain Current Visit: No Status: Acute Code(s): R10.9 - UNSPECIFIED ABDOMINAL PAIN SNOMED Code(s): 54829487 Plan: Recommendations laparoscopic cholecystectomy possible open. The procedure, risks, complications were discussed. Questions were encouraged and answered. I will repeat her PT/INR although they were normal on Saturday. She'll receive IV antibiotics. DVT and ulcer prophylaxis. Further recommendations to follow.
[2019-10-23] MEDS ORDERED: BUPIVACAIN-EPI 0.25%-1:200,000 30 ML VIAL SQ ONE ×2 (15:15)
[2019-10-23] MEDS ORDERED: SCOPOLAMINE 1.5MG/72HR PATCH TRANSDERM ONE (15:25)
[2019-10-23] MEDS ORDERED: IV FLUID CONTINUATION 200 ML IV ONE (15:31)
[2019-10-23] MEDS ORDERED: fentaNYL (PF) 50 MCG/ML 2 ML AMP ONE (15:45)
[2019-10-23] MEDS ORDERED: ROCURONIUM BROMIDE 10 MG/ML 10 ML VIAL IV ONE (15:45)
[2019-10-23] MEDS ORDERED: PROPOFOL 10 MG/ML 20 ML VIAL IV ONE (15:45)
[2019-10-23] MEDS ORDERED: GLYCOPYRROLATE 0.2 MG/ML 2 ML VIAL ONE (15:45)
[2019-10-23] MEDS ORDERED: LIDOCAINE 1% INJ 10MG/ML (20 ML MDV) ONE (15:45)
[2019-10-23] MEDS ORDERED: MIDAZOLAM 2 MG/2 ML VIAL ONE (15:45)
[2019-10-23] MEDS ORDERED: NEOSTIGMINE 1 MG/ML 10 ML VIAL ONE (15:45)
[2019-10-23] MEDS ORDERED: SUCCINYLCHOLINE CHLORIDE 100 MG/5 ML SYR IV ONE (15:45)
[2019-10-23] MEDS ORDERED: HYDROmorphone (PF) 1 MG/ML ONE (15:45)
[2019-10-23] MEDS ORDERED: LACTATED RINGERS 1,000 ML IV ONE (16:10)
[2019-10-23] MEDS ORDERED: HYDROcodone/APAP 5-325MG 1 EACH TAB PO PRN (17:03)
[2019-10-23] MEDS ORDERED: METOCLOPRAMIDE 5 MG/ML 2 ML VIAL IVP PRN (17:03)
[2019-10-23] MEDS ORDERED: ONDANSETRON 4 MG/2 ML VIAL IVP PRN (17:03)
--- NOTE | 2019-10-23 17:03 | P.OP ---
Date of Procedure: 10/23/19 Preoperative Diagnosis: Acute cholecystitis Postoperative Diagnosis: Acute cholecystitis with empyema of the gallbladder Procedure(s) Performed: Laparoscopic cholecystectomy with placement of drain Anesthesia: TAINA Surgeon: Em Harding Estimated Blood Loss (ml): 50 Pathology: other Condition: stable Disposition: PACU Indications for Procedure: Patient presented with abdominal pain, leukocytosis, findings of acute cholecystitis on ultrasound Description of Procedure: The patient's taken the operative suite where she is prepped and draped in the usual sterile manner under a general endotracheal anesthetic. An infraumbilical incision was made. The fascia was grasped and incised. The peritoneum was grasped and incised. A finger sweep was carried out. A balloon trocar was inserted and pneumoperitoneum was established with CO2 gas. Sites are chosen for accessory trochars needs are placed through small skin incisions. The omentum was adherent to the gallbladder and was bluntly taken down. The gallbladder was markedly inflamed and distended. Part of the pylorus was also adherent to the gallbladder and this was bluntly and sharply taken down. Through some tedious dissection of inflamed fatty tissue, the cystic duct was able to be identified. The common bile duct was also identified. The cystic duct was milked medial to lateral. The cystic duct was clipped in the midportion and transected. The stump of the cystic duct was further secured with 0 PDS Endoloop. The cystic artery was dissected free, clipped and cut. The gallbladder is then dissected free from the liver bed and placed into a specimen retrieval bag. Due to the acute inflammation, there was persistent oozing from the liver bed, this was controlled with electrocautery. A piece of Surgicel was also placed. A drain was then placed in the subhepatic space and brought out through one of the trocar sites in the right lateral abdomen. At that point everything appeared hemostatic. The excess irrigant was suctioned out. The pneumoperitoneum was was released. The trochars were removed. The specimen retrieval bag was removed through the umbilical port site. The fascia at the umbilicus was closed with 0 Vicryl. The drain was secured in place with nylon suture. The skin incisions were closed with kirt. Sterile dressings were applied. She tolerated the procedure without difficulty and was taken recovery room in satisfactory condition. According to or personnel, all counts are correct.
[2019-10-23] MEDS: SODIUM CHLORIDE 0.9% 1,000 ML IV SCH (17:10)
[2019-10-23] MEDS: HYDROmorphone 1 MG/ML 1 ML SYRINGE IVP ONE ×2 (17:25→17:35)
[2019-10-23] MEDS: KETOROLAC 30 MG/ML 1 ML VIAL IVP SCH ×2 (17:34→23:16)
[2019-10-23] MEDS ORDERED: HYDROmorphone 1 MG/ML 1 ML SYRINGE IVP ONE (17:41)
[2019-10-23] MEDS: D5-0.45% NACL WITH KCL 20MEQ/L 1,000 ML IV SCH (18:28)
[2019-10-23] MEDS: HYDROmorphone 1 MG/ML 1 ML SYRINGE IVP PRN (20:34)
[2019-10-23] MEDS: HYDROcodone/APAP 5-325MG 1 EACH TAB PO PRN (22:26)
[2019-10-23] MEDS: VANCOMYCIN 1,500 MG in SODIUM CHLORIDE 0.9% 250 ML IVPB SCH (23:15)
[2019-10-24] MEDS: PIPERACILLIN-TAZOBACTAM 3.375 GM in SODIUM CHLORIDE 0.9% 100 ML IVPB SCH ×4 (00:07→23:31)
[2019-10-24] MEDS: HYDROmorphone 1 MG/ML 1 ML SYRINGE IVP PRN (01:24)
[2019-10-24] MEDS: SODIUM CHLORIDE 0.9% 1,000 ML IV SCH ×2 (04:35→17:23)
[2019-10-24] MEDS: KETOROLAC 30 MG/ML 1 ML VIAL IVP SCH ×4 (04:42→23:30)
[2019-10-24] MEDS: PANTOPRAZOLE 40 MG/10 ML VIAL IV SCH (07:54)
[2019-10-24 07:58] LABS: Basophils % (A) 0 %; Eosinophils # (A) 0.2 k/uL (0-0.7); Eosinophils % (A) 1 %; HCT 34.9 % (34.0-46.0); HGB 11.3 gm/dL (11.4-16.0); Lymphocytes # (A) 0.9 k/uL (1.0-4.8); Lymphocytes % (A) 4 %; MCH 30.8 pg (25.0-35.0); MCHC 32.4 g/dL (31.0-37.0); Mean Platelet Volume 7.7; Monocytes # (A) 0.7 k/uL (0-1.0); Monocytes % (A) 3 %; Neutrophils % (A) 91 %; Platelet Count 314 k/uL (150-450); RBC 3.68 m/uL (3.80-5.40); RDW 12.9 % (11.5-15.5); WBC 20.9 k/uL (3.8-10.6)
[2019-10-24] MEDS: HYDROcodone/APAP 5-325MG 1 EACH TAB PO PRN ×3 (07:58→20:12)
[2019-10-24 08:12] LABS: MCV 94.8 fL (80.0-100.0)
[2019-10-24] MEDS: VANCOMYCIN 1,500 MG in SODIUM CHLORIDE 0.9% 250 ML IVPB SCH (08:16)
[2019-10-24] MEDS: D5-0.45% NACL WITH KCL 20MEQ/L 1,000 ML IV SCH ×2 (08:16→20:14)
[2019-10-24 08:23] LABS: ALT 68 U/L (4-34); AST 67 U/L (14-36); African American GFR (CKD) >90 (>60 ml/min/1.73 sqM); Albumin 3.7 g/dL (3.5-5.0); Alkaline Phosphatase 131 U/L (38-126); Anion Gap 10 mmol/L; Blood Urea Nitrogen 9 mg/dL (7-17); Calcium 8.9 mg/dL (8.4-10.2); Carbon Dioxide 22 mmol/L (22-30); Chloride 107 mmol/L (98-107); Glucose 130 mg/dL (74-99); Non-African American GFR(CKD) >90 (>60 ml/min/1.73 sqM); Potassium 4.4 mmol/L (3.5-5.1); Sodium 139 mmol/L (137-145); Total Bilirubin 0.7 mg/dL (0.2-1.3); Total Protein 7.2 g/dL (6.3-8.2)
--- NOTE | 2019-10-24 12:49 | P.PN ---
Subjective Progress Note Date: 10/24/19 Principal diagnosis: Acute cholecystitis with empyema of the gallbladder The patient is postop day 1 laparoscopic cholecystectomy for acute cholecystitis with empyema of the gallbladder. She is having less pain than preop. No nausea or vomiting. Is not eating well yet. Has been up and ambulated in the halls. Objective - Vital Signs Vital signs: Vital Signs Temp 98.2 F 10/24/19 12:16 Pulse 74 10/24/19 12:16 Resp 17 10/24/19 12:16 BP 105/57 10/24/19 12:16 Pulse Ox 97 10/24/19 12:16 Intake & Output 10/23/19 10/24/19 10/24/19 18:59 06:59 18:59 Intake Total 3125 770 Output Total 35 80 Balance 3090 690 Weight 81.238 kg 81.238 kg Intake: IV 1125 Amount of Fluid Infused ( 2000 ml) Intake, IV Titration 420 Amount D5-0.45% NaCl with KCl 320 20Meq/l 1,000 ml @ 80 mls /hr IV .[id number] [facility] Rx#: [id number] Piperacillin-Tazobactam 3 100 .375 gm In Sodium Chloride 0.9% 100 ml @ 25 mls/hr IVPB Q8HR [facility] Rx# :[id number] Oral 350 Output: Drainage 80 Anterior Abdomen 80 Estimated Blood Loss 35 Other: Voiding Method Toilet Toilet # Voids 2 - Constitutional General appearance: Present: cooperative, no acute distress - Respiratory Respiratory: bilateral: CTA - Gastrointestinal General gastrointestinal: Present: decreased bowel sounds, soft Localized gastrointestinal: surgical scar: diffuse (Dressings are intact clean and dry. BRIDGET is thin sanguinous fluid) - Labs CBC & Chem 7: 10/24/19 07:37 10/24/19 07:37 Labs: Abnormal Lab Results - Last 24 Hours (Table) 10/24/19 10/24/19 Range/Units 07:37 07:37 WBC 20.9 H (3.8-10.6) k/uL RBC 3.68 L (3.80-5.40) m/uL Hgb 11.3 L (11.4-16.0) gm/dL Neutrophils # 19.0 H (1.3-7.7) k/uL Lymphocytes # 0.9 L (1.0-4.8) k/uL Glucose 130 H (74-99) mg/dL AST 67 H (14-36) U/L ALT 68 H (4-34) U/L Alkaline Phosphatase 131 H (38-126) U/L Microbiology - Last 24 Hours (Table) 10/23/19 16:57 Gram Stain - Preliminary Other - Other Wound Culture - Preliminary 10/23/19 16:57 Anaerobic Culture - Preliminary Other - Other Assessment and Plan (1) Acute cholecystitis Current Visit: Yes Status: Acute Code(s): K81.0 - ACUTE CHOLECYSTITIS SNOMED Code(s): 65962562 (2) Abdominal pain Current Visit: No Status: Acute Code(s): R10.9 - UNSPECIFIED ABDOMINAL PAIN SNOMED Code(s): 75631731 (3) Empyema of gallbladder Current Visit: Yes Status: Acute Code(s): K81.0 - ACUTE CHOLECYSTITIS SNOMED Code(s): 22269974 Plan: Clinically the patient is improving. We'll continue IV antibiotics pending the cultures. Increase diet and activity as tolerated. Continue incentive spirometry. DVT and ulcer prophylaxis.
[2019-10-24] MEDS ORDERED: VANCOMYCIN TROUGH DUE 1 EACH MISC MISCELLANE ONE (14:00)
[2019-10-25] MEDS: HYDROcodone/APAP 5-325MG 1 EACH TAB PO PRN ×3 (03:10→16:40)
[2019-10-25] MEDS: KETOROLAC 30 MG/ML 1 ML VIAL IVP SCH ×3 (04:55→23:46)
[2019-10-25] MEDS: SODIUM CHLORIDE 0.9% 1,000 ML IV SCH (06:33)
[2019-10-25 08:30] LABS: HCT 30.8 % (34.0-46.0); Hypochromasia Slight; MCH 31.3 pg (25.0-35.0); MCHC 32.4 g/dL (31.0-37.0); MCV 96.7 fL (80.0-100.0); Mean Platelet Volume 7.9; Platelet Count 300 k/uL (150-450); RBC 3.19 m/uL (3.80-5.40); RDW 13.1 % (11.5-15.5); WBC 15.6 k/uL (3.8-10.6)
[2019-10-25 08:42] LABS: African American GFR (CKD) >90 (>60 ml/min/1.73 sqM); Non-African American GFR(CKD) 90 (>60 ml/min/1.73 sqM)
[2019-10-25] MEDS: PIPERACILLIN-TAZOBACTAM 3.375 GM in SODIUM CHLORIDE 0.9% 100 ML IVPB SCH ×3 (09:13→23:46)
[2019-10-25] MEDS: PANTOPRAZOLE 40 MG/10 ML VIAL IV SCH (09:13)
[2019-10-25] MEDS ORDERED: DOCUSATE 100 MG CAP PO PRN (10:37)
--- NOTE | 2019-10-25 10:40 | P.PN ---
Subjective Progress Note Date: 10/25/19 Principal diagnosis: Acute cholecystitis with empyema of the gallbladder The patient is seen on rounds. She's tolerating a diet. Complaining of expected incisional pain. She has a slight cough. Using the incentive spirometry. Complains of no bowel movement times several days Objective - Vital Signs Vital signs: Vital Signs Temp 97.5 F L 10/25/19 05:51 Pulse 85 10/25/19 05:51 Resp 16 10/25/19 05:51 BP 123/72 10/25/19 05:51 Pulse Ox 94 L 10/25/19 05:51 Intake & Output 10/24/19 10/25/19 10/25/19 18:59 06:59 18:59 Intake Total 990 2780 Output Total 25 Balance 965 2780 Intake: Intake, IV Titration 990 1000 Amount D5-0.45% NaCl with KCl 640 800 20Meq/l 1,000 ml @ 80 mls /hr IV .[id number] [facility] Rx#: [id number] Piperacillin-Tazobactam 3 100 200 .375 gm In Sodium Chloride 0.9% 100 ml @ 25 mls/hr IVPB Q8HR [facility] Rx# :[id number] Vancomycin 1,500 mg In 250 Sodium Chloride 0.9% 250 ml @ 125 mls/hr IVPB Q8H [facility] Rx#:[id number] Oral 1780 Output: Drainage 25 Anterior Abdomen 25 Other: Voiding Method Toilet Toilet Toilet # Voids 2 - Constitutional General appearance: Present: cooperative, no acute distress - Respiratory Respiratory: bilateral: CTA, diminished (Slightly at the bases) - Gastrointestinal General gastrointestinal: Present: normal bowel sounds, soft Localized gastrointestinal: surgical scar: diffuse (Incisions intact clean and dry. BRIDGET is slight serosanguineous) - Labs CBC & Chem 7: 10/25/19 08:16 10/25/19 08:07 Labs: Abnormal Lab Results - Last 24 Hours (Table) 10/25/19 Range/Units 08:16 WBC 15.6 H (3.8-10.6) k/uL RBC 3.19 L (3.80-5.40) m/uL Hgb 10.0 L (11.4-16.0) gm/dL Hct 30.8 L (34.0-46.0) % Microbiology - Last 24 Hours (Table) 10/23/19 16:57 Gram Stain - Preliminary Other - Other Wound Culture - Preliminary Gram Neg Bacilli Assessment and Plan (1) Acute cholecystitis Current Visit: Yes Status: Acute Code(s): K81.0 - ACUTE CHOLECYSTITIS SNOMED Code(s): 77444617 (2) Abdominal pain Current Visit: No Status: Acute Code(s): R10.9 - UNSPECIFIED ABDOMINAL PAIN SNOMED Code(s): 89516569 (3) Empyema of gallbladder Current Visit: Yes Status: Acute Code(s): K81.0 - ACUTE CHOLECYSTITIS SNOMED Code(s): 25529448 Plan: Continue incentive spirometry. Continue IV antibiotics pending culture and sensitivity. Hep-Lock the IV. Increase activity. Give her a stool softener to encourage bowel function. Progressing slowly.
[2019-10-25] MEDS: D5-0.45% NACL WITH KCL 20MEQ/L 1,000 ML IV SCH (11:04)
[2019-10-25] MEDS ORDERED: HYDROcodone/APAP 5-325MG 1 EACH TAB PO PRN (12:08)
[2019-10-25] MEDS ORDERED: ONDANSETRON 4 MG/2 ML VIAL IVP PRN (12:09)
[2019-10-25] MEDS: METOCLOPRAMIDE 5 MG/ML 2 ML VIAL IVP PRN (20:03)
[2019-10-26] MEDS: METOCLOPRAMIDE 5 MG/ML 2 ML VIAL IVP PRN ×2 (04:58→11:38)
[2019-10-26] MEDS: KETOROLAC 30 MG/ML 1 ML VIAL IVP SCH ×2 (05:58→14:07)
[2019-10-26] MEDS: PIPERACILLIN-TAZOBACTAM 3.375 GM in SODIUM CHLORIDE 0.9% 100 ML IVPB SCH (08:34)
[2019-10-26 09:03] LABS: HCT 30.3 % (34.0-46.0); HGB 10.1 gm/dL (11.4-16.0); MCH 31.6 pg (25.0-35.0); MCHC 33.3 g/dL (31.0-37.0); MCV 94.8 fL (80.0-100.0); Mean Platelet Volume 7.9; Platelet Count 323 k/uL (150-450); RBC 3.19 m/uL (3.80-5.40); WBC 11.2 k/uL (3.8-10.6)
[2019-10-26 09:19] LABS: African American GFR (CKD) >90 (>60 ml/min/1.73 sqM); Non-African American GFR(CKD) >90 (>60 ml/min/1.73 sqM)
[2019-10-26] MEDS: HYDROcodone/APAP 5-325MG 1 EACH TAB PO PRN (11:08)
--- NOTE | 2019-10-26 14:18 | P.DS ---
Providers Date of admission: 10/23/19 14:17 Expected date of discharge: 10/26/19 Attending physician: Em Harding Primary care physician: Stated None - Discharge Diagnosis(es) (1) Acute cholecystitis Current Visit: Yes Status: Acute (2) Empyema of gallbladder Current Visit: Yes Status: Acute Hospital Course: The patient presented to the emergency department with abdominal pain. She had leukocytosis and acute cholecystitis based on workup. She was given IV antibiotics. She was taken to the OR where she underwent laparoscopic cholecystectomy. The patient had evidence of empyema of the gallbladder with an acutely inflamed gallbladder. A drain was placed. Cultures of the bile were obtained. The cultures eventually grew out Klebsiella pneumoniae. Her white count normalized. The patient was having some continued nausea after taking oral pain medications. This was controlled with Reglan. By 12:30 she was felt to be stable for discharge. Patient Condition at Discharge: Good Plan - Discharge Summary Discharge Rx Participant: Yes New Discharge Prescriptions: New HYDROcodone/APAP 5-325MG [[place] 5-325] 1 - 2 tab PO Q4H PRN #15 tab PRN Reason: Pain Metoclopramide [Reglan] 10 mg PO ACHS PRN #10 tab PRN Reason: Nausea No Action Multivitamins, Thera [Multivitamin (formulary)] 1 tab PO DAILY Discharge Medication List Multivitamins, Thera [Multivitamin (formulary)] 1 tab PO DAILY 10/19/19 [History] HYDROcodone/APAP 5-325MG [[place] 5-325] 1 - 2 tab PO Q4H PRN #15 tab 10/26/19 [Rx] Metoclopramide [Reglan] 10 mg PO ACHS PRN #10 tab 10/26/19 [Rx] Follow up Appointment(s)/Referral(s): Em Harding DO [Doctor of Osteopathic Medicine] - 11/03/19 10:15 am Patient Instructions/Handouts: *Surgery [facility] - Laparoscopic Cholecystectomy Discharge Instructions, Metoclopramide (By mouth), Hydrocodone/Acetaminophen (By mouth), Cholecystitis (ED), Low Fat Diet (DC), Laparoscopic Cholecystectomy (DC) Discharge Disposition: HOME SELF-CARE
[2019-10-26 14:47] VITALS: BP 106/64; PULSE 72; RESP 16; TEMP 98.1
== END 2019-10-26 16:02 | disposition home or self-care (01) | DRG 419 ==
LOC: EC 11:10 → 6PED 14:17 → 5NMEDONC 10-24 01:21 → OBSVTOIN 10-26 08:24
PROVIDERS: ADMIT Surgery; ATTEND Surgery
PROC: 0FT44ZZ Resection of Gallbladder, Percutaneous Endoscopic Approach (ICD-10-PCS; principal; 2019-10-23 13:55)
DX: K81.0 Acute cholecystitis (principal); B96.1 Klebsiella pneumoniae [K. pneumoniae] as the cause of diseases classified elsewhere; Z79.899 Other long term (current) drug therapy; Z98.890 Other specified postprocedural states; Z91.040 Latex allergy status
CPT/HCPCS: 36415; 76705; 80053; 80202; 81001; 82150; 82565; 83605; 83690; 84484; 85025; 85027; 86850; 86900; 86901; 87070; 87075; 87077; 87186; 87205; 88304; 93005; 96361; 96374; 96375; 99285

== ENCOUNTER 2019-10-31 17:50 | Observation (INO) | payer BC, OTHER ==
[2019-10-31] MEDS ORDERED: SODIUM CHLORIDE 0.9% 1,000 ML IV STA (19:18)
--- NOTE | 2019-10-31 19:47 | ED ---
General Adult HPI - General Source: patient, RN notes reviewed Mode of arrival: ambulatory Limitations: no limitations <Porfirio Weinstein - Last Filed: 10/31/19 22:58> <Alex Mejia - Last Filed: 10/31/19 23:12> - General Chief complaint: Recheck/Abnormal Lab/Rx Stated complaint: Post op vomiting, dehydration Time Seen by Provider: 10/31/19 18:58 - History of Present Illness Initial comments: 49-year-old female presents to the emergency department for a chief complaint of postop nausea and vomiting. Patient had a cystectomy [address] Harding. States that since that time she has had progressively worsening nausea. States that was sent home with nausea medicine but it does not seem to be helping. St ates that for the past 2 days she has not been able to keep down any fluids. Denies any significant pain. Patient states she did have 2 bowel movements since she was discharged but has not had a bowel movement for 2 days. She does state she has passing gas. She denies fevers.Patient has no other complaints at this time including shortness of breath, chest pain, abdominal pain, nausea or vomiting, headache, or visual changes. (Porfirio Weinstein) - Related Data Home Medications Medication Instructions Recorded Confirmed Multivitamins, Thera [Multivitamin 1 tab PO DAILY 10/19/19 10/31/19 (formulary)] Ciprofloxacin HCl [Cipro] 500 mg PO BID 10/31/19 10/31/19 Previous Rx's Medication Instructions Recorded HYDROcodone/APAP 5-325MG [[place] 1 - 2 tab PO Q4H PRN #15 tab 10/26/19 5-325] Metoclopramide [Reglan] 10 mg PO ACHS PRN #10 tab 10/26/19 Allergies Allergy/AdvReac Type Severity Reaction Status Date / Time Latex, Natural Rubber Allergy Rash/Hives Verified 10/31/19 22:42 Review of Systems ROS Other: All systems not noted in ROS Statement are negative. <Porfirio Weinstein - Last Filed: 10/31/19 22:58> ROS Other: All systems not noted in ROS Statement are negative. <Alex Mejia - Last Filed: 10/31/19 23:12> ROS Statement: Those systems with pertinent positive or pertinent negative responses have been documented in the HPI. Past Medical History Past Medical History: No Reported History History of Any Multi-Drug Resistant Organisms: None Reported Past Surgical History: Cholecystectomy Additional Past Surgical History / Comment(s): abdominal surgery, spontaneous internal bleeding 2005. d&c Past Anesthesia/Blood Transfusion Reactions: Previous Problems w/ Anesthesia, Motion Sickness, Postoperative Nausea & Vomiting (PONV) Past Psychological History: No Psychological Hx Reported Smoking Status: Never smoker Past Alcohol Use History: None Reported Past Drug Use History: None Reported - Past Family History Father Family Medical History: No Reported History Mother Family Medical History: No Reported History <Porfirio Weinstein - Last Filed: 10/31/19 22:58> General Exam Limitations: no limitations <Porfirio Weinstein - Last Filed: 10/31/19 22:58> Course <Alex Mejia - Last Filed: 10/31/19 23:12> Vital Signs 10/31/19 10/31/19 18:51 21:18 Temperature 98.5 F Pulse Rate 87 85 Respiratory 18 18 Rate Blood Pressure 150/81 152/86 O2 Sat by Pulse 97 97 Oximetry - Reevaluation(s) Reevaluation #1: 10/31/19 23:11 PA supervision: I proceeded week-th-neev evaluation the patient patient will be admitted I did discuss case with Dr. Flores and with Dr. Wade's nurse pract Rosa aguilar. Patient will be admitted with IV hydration consultation by surgery. (Alex Mejia) Medical Decision Making - Lab Data Result diagrams: 10/31/19 19:50 10/31/19 19:50 <Porfirio Weinstein - Last Filed: 10/31/19 22:58> - Lab Data Result diagrams: 10/31/19 19:50 10/31/19 19:50 <Alex Mejia - Last Filed: 10/31/19 23:12> - Medical Decision Making Patient presents for intractable nausea vomiting. She does have acute kidney injury with a creatinine of 1.44. At this point we do believe she requires IV fluids. Discussed this case with Dr. Flores who is on-call for Dr. Harding. Will accept consult. Dr. Wade accepts admission. (Porfirio Weinstein) - Lab Data Lab Results 10/31/19 10/31/19 10/31/19 Range/Units 19:50 19:50 20:35 WBC 13.7 H (3.8-10.6) k/uL RBC 4.02 (3.80-5.40) m/uL Hgb 11.9 (11.4-16.0) gm/dL Hct 36.7 (34.0-46.0) % MCV 91.3 (80.0-100.0) fL MCH 29.7 (25.0-35.0) pg MCHC 32.5 (31.0-37.0) g/dL RDW 13.2 (11.5-15.5) % Plt Count 498 H (150-450) k/uL Neutrophils % 76 % Lymphocytes % 14 % Monocytes % 6 % Eosinophils % 2 % Basophils % 1 % Neutrophils # 10.4 H (1.3-7.7) k/uL Lymphocytes # 2.0 (1.0-4.8) k/uL Monocytes # 0.8 (0-1.0) k/uL Eosinophils # 0.3 (0-0.7) k/uL Basophils # 0.1 (0-0.2) k/uL Sodium 138 (137-145) mmol/L Potassium 4.7 (3.5-5.1) mmol/L Chloride 103 (98-107) mmol/L Carbon Dioxide 26 (22-30) mmol/L Anion Gap 9 mmol/L BUN 15 (7-17) mg/dL Creatinine 1.44 H (0.52-1.04) mg/dL Est GFR (CKD-EPI)AfAm 49 (>60 ml/min/1.73 sqM) Est GFR (CKD-EPI)NonAf 42 (>60 ml/min/1.73 sqM) Glucose 104 H (74-99) mg/dL Calcium 9.6 (8.4-10.2) mg/dL Total Bilirubin 0.5 (0.2-1.3) mg/dL AST 95 H (14-36) U/L ALT 146 H (4-34) U/L Alkaline Phosphatase 170 H (38-126) U/L Total Protein 7.6 (6.3-8.2) g/dL Albumin 4.1 (3.5-5.0) g/dL Amylase 50 (30-110) U/L Lipase 126 (23-300) U/L Urine Color Yellow Urine Appearance Clear (Clear) Urine pH 6.5 (5.0-8.0) Ur Specific [place] 1.012 (1.001-1.035) Urine Protein Trace H (Negative) Urine Glucose (UA) Negative (Negative) Urine Ketones 2+ H (Negative) Urine Blood Negative (Negative) Urine Nitrite Negative (Negative) Urine Bilirubin Negative (Negative) Urine Urobilinogen <2.0 (<2.0) mg/dL Ur Leukocyte Esterase Negative (Negative) Disposition Is patient prescribed a controlled substance at d/c from ED?: No Time of Disposition: 22:59 <Porfirio Weinstein - Last Filed: 10/31/19 22:58> <Alex Mejia - Last Filed: 10/31/19 23:12> Clinical Impression: Intractable nausea and vomiting, JOSUE (acute kidney injury), Transaminitis Disposition: ADMITTED IP TO THIS HOSP Condition: Fair Referrals: None,Stated [Primary Care Provider] - 1-2 days
[2019-10-31] MEDS ORDERED: ONDANSETRON 4 MG/2 ML VIAL IVP STA (19:57)
[2019-10-31 20:07] LABS: Basophils # (A) 0.1 k/uL (0-0.2); Basophils % (A) 1 %; Eosinophils # (A) 0.3 k/uL (0-0.7); Eosinophils % (A) 2 %; HCT 36.7 % (34.0-46.0); HGB 11.9 gm/dL (11.4-16.0); Lymphocytes % (A) 14 %; MCH 29.7 pg (25.0-35.0); MCHC 32.5 g/dL (31.0-37.0); MCV 91.3 fL (80.0-100.0); Mean Platelet Volume 7.3; Monocytes # (A) 0.8 k/uL (0-1.0); Monocytes % (A) 6 %; Neutrophils # (A) 10.4 k/uL (1.3-7.7); Neutrophils % (A) 76 %; Platelet Count 498 k/uL (150-450); RBC 4.02 m/uL (3.80-5.40); RDW 13.2 % (11.5-15.5); WBC 13.7 k/uL (3.8-10.6)
[2019-10-31 20:20] LABS: Albumin 4.1 g/dL (3.5-5.0); Calcium 9.6 mg/dL (8.4-10.2); Potassium 4.7 mmol/L (3.5-5.1); Total Bilirubin 0.5 mg/dL (0.2-1.3); Total Protein 7.6 g/dL (6.3-8.2)
--- NOTE | 2019-10-31 20:41 | XR ---
EXAMINATION TYPE: XR KUB DATE OF EXAM: 10/31/2019 COMPARISON: NONE HISTORY: Pain TECHNIQUE: 2 views FINDINGS: 2 views upright were obtained and show no sign of intestinal obstruction or pneumoperitoneu m. Fecal pattern is normal. There are skin kirt. There is no evidence of a mass. There is mild blunting left costophrenic angle. IMPRESSION: Nonacute abdomen. Small left pleural effusion and left basilar atelectasis.
[2019-10-31 20:56] LABS: Appearance,Urine Clear (Clear); Bilirubin,Urine Negative (Negative); Blood,Urine Negative (Negative); Color,Urine Yellow; Glucose,Urine (UA) Negative (Negative); Ketones,Urine 2+ (Negative); Leukocyte Esterase,Urine Negative (Negative); Nitrite,Urine Negative (Negative); PH, Urine 6.5 (5.0-8.0); Protein,Urine Trace (Negative); Specific Gravity,Urine 1.012 (1.001-1.035); Urobilinogen,Urine <2.0 mg/dL (<2.0)
[2019-10-31] MEDS ORDERED: ONDANSETRON 4 MG/2 ML VIAL IVP PRN (23:00)
[2019-10-31] MEDS ORDERED: HYDROmorphone 0.5 MG/0.5 ML SYRINGE IVP PRN (23:00)
[2019-10-31] MEDS ORDERED: NALOXONE 0.4 MG/ML 1 ML VIAL IV PRN (23:00)
[2019-10-31] MEDS: SODIUM CHLORIDE 0.9% 1,000 ML IV SCH (23:31)
[2019-11-01] MEDS ORDERED: LEVOFLOXACIN 500MG-D5W PMX 500 MG in DEXTROSE/WATER 1 100ML.BAG IVPB STA
[2019-11-01] MEDS: SODIUM CHLORIDE 0.9% 1,000 ML IV SCH ×2 (07:56→15:57)
[2019-11-01] MEDS ORDERED: ONDANSETRON 4 MG/2 ML VIAL IVP PRN (11:00)
--- NOTE | 2019-11-01 11:11 | P.GSCN ---
History of Present Illness Consult date: 11/01/19 History of present illness: 49-year-old female presented to the emergency department with complaint of nausea and vomiting. She states that she did have a cholecystectomy on 10/23/2019 and was discharged a few days after the procedure. She states that she'll see has been home she has progressively felt worse. She states that she is not having a significant amount of abdominal pain. She complains of nausea and vomiting episodes. She complains of headache. She complains of extreme weakness. She states that even getting from the bed to her bathroom makes her f eel exhausted. She states that she has not been able to keep down any fluids and has been vomiting even a glass of water. She denies any fevers or chills. She states she has not gotten a flu vaccine this year. Review of Systems All systems: negative Past Medical History Past Medical History: No Reported History History of Any Multi-Drug Resistant Organisms: None Reported Past Surgical History: Cholecystectomy Additional Past Surgical History / Comment(s): abdominal surgery, spontaneous internal bleeding 2005. d&c Past Anesthesia/Blood Transfusion Reactions: Previous Problems w/ Anesthesia, Motion Sickness, Postoperative Nausea & Vomiting (PONV) Past Psychological History: No Psychological Hx Reported Smoking Status: Never smoker Past Alcohol Use History: None Reported Past Drug Use History: None Reported - Past Family History Father Family Medical History: No Reported History Mother Family Medical History: No Reported History Medications and Allergies Home Medications Medication Instructions Recorded Confirmed Type Multivitamins, Thera [Multivitamin 1 tab PO DAILY 10/19/19 10/31/19 History (formulary)] HYDROcodone/APAP 5-325MG [[place] 1 - 2 tab PO Q4H PRN #15 tab 10/26/19 10/31/19 Rx 5-325] Metoclopramide [Reglan] 10 mg PO ACHS PRN #10 tab 10/26/19 10/31/19 Rx Ciprofloxacin HCl [Cipro] 500 mg PO BID 10/31/19 10/31/19 History Allergies Allergy/AdvReac Type Severity Reaction Status Date / Time Latex, Natural Rubber Allergy Rash/Hives Verified 10/31/19 22:42 Surgical - Exam Osteopathic Statement: *. No significant issues noted on an osteopathic structural exam other than those noted in the History and Physical/Consult. Vital Signs Temp Pulse Resp BP Pulse Ox 98.5 F 87 18 150/81 97 10/31/19 18:51 10/31/19 18:51 10/31/19 18:51 10/31/19 18:51 10/31/19 18:51 - General well nourished, no distress - Eyes PERRL - ENT normal mucosa, no hearing loss - Neck trachea midline - Respiratory normal respiratory effort - Abdomen Soft, nontender, nondistended, no rebound, no guarding, incision sites are clean dry and intact and healing well - Psychiatric oriented to time, oriented to person, oriented to place Results - Labs 10/31/19 19:50 10/31/19 19:50 Abnormal Lab Results - Last 24 Hours (Table) 10/31/19 10/31/19 10/31/19 Range/Units 19:50 19:50 20:35 WBC 13.7 H (3.8-10.6) k/uL Plt Count 498 H (150-450) k/uL Neutrophils # 10.4 H (1.3-7.7) k/uL Creatinine 1.44 H (0.52-1.04) mg/dL Glucose 104 H (74-99) mg/dL AST 95 H (14-36) U/L ALT 146 H (4-34) U/L Alkaline Phosphatase 170 H (38-126) U/L Urine Protein Trace H (Negative) Urine Ketones 2+ H (Negative) Diabetes panel 10/31/19 Range/Units 19:50 Sodium 138 (137-145) mmol/L Potassium 4.7 (3.5-5.1) mmol/L Chloride 103 (98-107) mmol/L Carbon Dioxide 26 (22-30) mmol/L BUN 15 (7-17) mg/dL Creatinine 1.44 H (0.52-1.04) mg/dL Glucose 104 H (74-99) mg/dL Calcium 9.6 (8.4-10.2) mg/dL AST 95 H (14-36) U/L ALT 146 H (4-34) U/L Alkaline Phosphatase 170 H (38-126) U/L Total Protein 7.6 (6.3-8.2) g/dL Albumin 4.1 (3.5-5.0) g/dL Calcium panel 10/31/19 Range/Units 19:50 Calcium 9.6 (8.4-10.2) mg/dL Albumin 4.1 (3.5-5.0) g/dL Pituitary panel 10/31/19 Range/Units 19:50 Sodium 138 (137-145) mmol/L Potassium 4.7 (3.5-5.1) mmol/L Chloride 103 (98-107) mmol/L Carbon Dioxide 26 (22-30) mmol/L BUN 15 (7-17) mg/dL Creatinine 1.44 H (0.52-1.04) mg/dL Glucose 104 H (74-99) mg/dL Calcium 9.6 (8.4-10.2) mg/dL Adrenal panel 10/31/19 Range/Units 19:50 Sodium 138 (137-145) mmol/L Potassium 4.7 (3.5-5.1) mmol/L Chloride 103 (98-107) mmol/L Carbon Dioxide 26 (22-30) mmol/L BUN 15 (7-17) mg/dL Creatinine 1.44 H (0.52-1.04) mg/dL Glucose 104 H (74-99) mg/dL Calcium 9.6 (8.4-10.2) mg/dL Total Bilirubin 0.5 (0.2-1.3) mg/dL AST 95 H (14-36) U/L ALT 146 H (4-34) U/L Alkaline Phosphatase 170 H (38-126) U/L Total Protein 7.6 (6.3-8.2) g/dL Albumin 4.1 (3.5-5.0) g/dL Assessment and Plan (1) Intractable nausea and vomiting Narrative/Plan: 49-year-old female status post cholecystectomy on 10/23/2019 with complaints of nausea and vomiting and weakness - Due to nausea and vomiting, we will obtain an abdominal ultrasound to evaluate for any fluid collections - Based on laboratory work, does appear that the patient is dehydrated secondary to nausea and vomiting. Continue IV fluid resuscitation. - Continue Zofran and Reglan for antiemetic therapy - Consider influenza testing as the patient does appear to have flulike symptoms and not obvious postoperative pain Current Visit: Yes Status: Acute Code(s): R11.2 - NAUSEA WITH VOMITING, UNSPECIFIED SNOMED Code(s): 870059811
[2019-11-01] MEDS: METOCLOPRAMIDE 5 MG/ML 2 ML VIAL IVP SCH ×2 (11:31→17:11)
--- NOTE | 2019-11-01 11:59 | US ---
EXAMINATION TYPE: US abdomen complete DATE OF EXAM: 11/01/2019 COMPARISON: 10/23/2019 CLINICAL HISTORY: 49 year-old female evaluate for fluid collection s/p cholecystectomy. Patient state s N&V s/p nik 1 week ago, denies pain or fever. TECHNIQUE: Multiple sonographic images of the abdomen are obtained. FINDINGS: EXAM MEASUREMENTS: Liver Length: 13.5 cm CBD: 0.5 cm Spleen: 8.5 cm Right Kidney: 11.4 x 4.8 x 4.6 cm Left Kidney: 11.8 x 4.8 x 5.5 cm Pancreas: Obscured by bowel gas Liver: wnl Gallbladder: Surgically absent Evidence for sonographic Davis's sign: No CBD: wnl Spleen: wnl Right Kidney: Appeared wnl Left Kidney: Appeared wnl Upper IVC: wnl Abd Aorta: Proximal portion gassed out, mid and distal wnl [employer] NOTES: Within gallbladder fossa there appears to be a round echogenic area measuring 2 .5 cm IMPRESSION: 1. Round 2.5 cm echogenic area along the gallbladder fossa of unclear etiology. Inspissated biloma or other complex collection versus surgical material are in the differential. Clinically correlate. 2. No biliary ductal dilatation.
[2019-11-01] MEDS ORDERED: TEMAZEPAM 15 MG CAP PO PRN (15:46)
[2019-11-01] MEDS ORDERED: ALPRAZolam 0.25 MG TAB PO PRN (15:46)
[2019-11-01] MEDS ORDERED: HYDROcodone/APAP 5-325MG 1 EACH TAB PO PRN (15:46)
[2019-11-01] MEDS ORDERED: ACETAMINOPHEN TAB 500 MG TAB PO PRN (15:46)
[2019-11-01] MEDS: IOPAMIDOL CONTRAST (ORAL USE) VIAL PO PRN ×2 (15:55→17:10)
[2019-11-01] MEDS: PANTOPRAZOLE 40 MG/10 ML VIAL IVP SCH ×2 (15:59→21:30)
--- NOTE | 2019-11-01 16:29 | XR ---
EXAMINATION TYPE: XR chest 1V portable DATE OF EXAM: 11/01/2019 COMPARISON: None INDICATION: CHF TECHNIQUE: Single frontal view of the chest is obtained. FINDINGS: The heart size is normal. The pulmonary vasculature is normal. Very minimal linear opacities of the left base. Correlate for atelectasis. Lungs otherwise appear carlyle ar IMPRESSION: 1. Suggestion of minimal plate atelectasis left lung base. 2. Overt congestive heart failure not evident.
[2019-11-01 16:54] LABS: Prothrombin Time 10.8 sec (9.0-12.0)
--- NOTE | 2019-11-01 17:38 | HP ---
HISTORY AND PHYSICAL CHIEF COMPLAINT: Nausea, vomiting and influenza, unable to keep anything down. HISTORY OF PRESENT ILLNESS: This 49-year-old woman with a past medical history of multiple medical problems including history of cholecystectomy, history of abdominal surgery, history of motion sickness, history of spontaneous internal bleeding 2006 with D and C, not being followed by any primary physician in the outpatient setting recently had a laparoscopic cholecystectomy for acute cholecystitis and gallbladder empyema by Dr. Harding. The patient went home. The patient was feeling sick even while in the hospital, but subsequently patient had increasing nausea, vomiting and unable to keep anything down. The patient thought it was the pain medication and stopped the pain medication. Because of recurrent symptoms, patient came to [facility] and admitted to the hospital for further evaluation and treatment. At this time, the white count is elevated and the patient is on empiric antibiotics. Apparently, creatinine is also 1.4. Patient dehydrated. Patient has mild acute renal failure, AST/ALT is also elevated. The patient also had abdominal ultrasound which showed around 2.5 cm echogenic area along the gallbladder fossa of unclear etiology was noted. Dr. Flores is following the patient closely from surgery. There is no history of fever, rigors or chills. No history of headache, loss of consciousness or seizures. PAST MEDICAL HISTORY: Recent cholecystectomy, history of abdominal surgery, history of internal bleeding, previously, history of D and C. MEDICATIONS: Prior to admission include: 1. Multivitamins one p.o. daily. 2. Metoclopramide 10 mg a.c. and q.h.s. p.r.n. 3. [place] 5 mg 2 tabs q.4h p.r.n. 4. Cipro 500 mg p.o. b.i.d. ALLERGIES: LATEX. FAMILY HISTORY: No history of heart disease or strokes in the family. SOCIAL HISTORY: No history of smoking. No history of alcohol intake. REVIEW OF SYSTEMS: ENT: No diminished vision. No diminished hearing. Cardiovascular: No angina or palpitations. Respiration: As mentioned earlier. GI as mentioned earlier. no dysuria. Nervous System: No numbness or weakness. ALLERGY/IMMUNOLOGY: No asthma or hayfever. MUSCULOSKELETAL as mentioned earlier. HEMATOLOGY/ONCOLOGY: No history of anemia. ENDOCRINE: No history of diabetes or hypothyroidism. CONSTITUTIONAL: As mentioned earlier. DERMATOLOGY: Negative. RHEUMATOLOGY negative. PSYCHIATRY as mentioned. PHYSICAL EXAMINATION: The patient is alert and oriented times three. Pulse 92, blood pressure 135/78, respirations 16, temperature 98.7, pulse ox 98% on room air. HEENT: Conjunctivae normal. NECK: No JVD. CARDIOVASCULAR: S1, S2 normal. RESPIRATORY: Breath sounds diminished in the bases. A few scattered rhonchi and crackles. ABDOMEN: Soft. Mild diffuse discomfort on palpation. No mass palpable. LEGS: No edema. No swelling. NERVOUS SYSTEM: Higher functions as mentioned earlier. Moves all 4 limbs. No focal motor or sensory deficits. Lymphatics: No lymph nodes palpable in the neck, axillae or groin. SKIN: No ulcer, no rashes and no bleeding. JOINTS: No active deforming arthropathy. LABS: WBC 13.2, hemoglobin 7.9, sodium 130, potassium 4.7, creatinine is 1.44. UA noted is 82%, ASSESSMENT: 1. Incessant nausea and vomiting, possible acute gastritis. 2. Dehydration with acute renal failure with prerenal acute tubular necrosis. 3. History of recent laparoscopic cholecystectomy for cholecystitis and gallbladder empyema. 4. Elevated AST/ALT and alkaline phosphatase. 5. Increased WBC. 6. Increased platelets, possibly reactive. 7. 2.5 cm echogenic area along the gallbladder fossa. RECOMMENDATIONS AND DISCUSSION: In this 49-year-old woman who presented with multiple medical problems, at this time, I recommend to continue current medications, management and symptomatic treatment. We will keep the patient n.p.o., IV fluids. We will check influenza also. Repeat labs. Hold off antibiotics. Obtain cultures. I would also recommend a CT scan of the abdomen and pelvis to delineate the anatomy further. Otherwise overall prognosis guarded because of multiple complex medical issues. Further recommendations to follow. I recommend the patient follow up closely with primary physician in the outpatient setting. Also we will follow the patient closely with general surgery. Further recommendations to follow. MMODL / IJN: [id number] / [email or web address]
--- NOTE | 2019-11-01 19:11 | CT ---
EXAMINATION TYPE: CT abdomen pelvis wo con DATE OF EXAM: 11/01/2019 COMPARISON: 10/19/2019 INDICATION: abdominal pain, nausea, vomiting 1 week post-op nik. DLP: 657.2 mGycm, Automated exposure control for dose reduction was used. CONTRAST: 0 mL of Isovue 300. Study performed with Oral Contrast TECHNIQUE: Axial images were obtained from above the diaphragm to the pubic rami in the axial plane a t 5 mm thick sections. Reconstructed images are reviewed on the computer in the coronal plane. FINDINGS: Limited CT sections are obtained the lung bases. Minimal right pleural effusion is present.. Bilate ral breast prostheses are present. Small bilateral pleural effusions are present. CT ABDOMEN: Liver: Normal Spleen: Normal Pancreas: Normal Adrenal glands: The adrenal glands are normal. Gallbladder: Gallbladder is been surgically removed. There appears to be some debris little fluid and some free air at the gallbladder bed fossa. Correlate for abscess formation. Consider bile leak. Se tobias 201 image 19-23 Kidneys: No masses are evident. Mild [place] may be present on the right. No cysts are present. Delaye d images were obtained through the kidneys, which remain unremarkable. Aorta: Normal Inferior vena cava: Normal. CT PELVIS: Loops of bowel within the abdomen and pelvis are normal. There are loops of bowel which are incom pletely distended or lack oral contrast limiting their evaluation. Appendix: Not clearly identified. No suspicious dilated tubular structures are evident. Urinary bladder: Normal. Genitourinary structures: Uterus and adnexal regions appear normal Osseous structures: No suspicious lytic or sclerotic lesions. IMPRESSIONS: 1. Collection at the gallbladder bed fossa. Consider abscess within the frontal diagnosis. Biloma wi th postsurgical air could be considered..
[2019-11-01] MEDS: HEPARIN SODIUM,PORCINE 5,000 UNIT/ML 1 ML VIAL SQ SCH (21:30)
[2019-11-02] MEDS: SODIUM CHLORIDE 0.9% 1,000 ML IV SCH ×3 (00:15→14:48)
[2019-11-02] MEDS: METOCLOPRAMIDE 5 MG/ML 2 ML VIAL IVP SCH ×4 (00:15→17:28)
[2019-11-02 00:22] LABS: Amphetamine Screen,Urine Not Detected (NotDetected); Barbiturate Screen,Urine Not Detected (NotDetected); Benzodiazepines Screen,Urine Not Detected (NotDetected); Cocaine Screen,Urine Not Detected (NotDetected); Methadone Screen, Urine Not Detected (NotDetected); Opiate Screen,Urine Not Detected (NotDetected); Oxycodone Screen, Urine Not Detected (NotDetected); Phencyclidine Screen,Urine Not Detected (NotDetected); Tricyclic Antidepressant,Urine Not Detected (NotDetected); Urn Cannabinoid Scrn Not Detected (NotDetected)
[2019-11-02 08:03] LABS: Albumin 3.2 g/dL (3.5-5.0); Calcium 8.8 mg/dL (8.4-10.2); Potassium 4.5 mmol/L (3.5-5.1); Total Bilirubin 0.6 mg/dL (0.2-1.3); Total Protein 6.4 g/dL (6.3-8.2)
[2019-11-02 08:05] LABS: Basophils # (A) 0.1 k/uL (0-0.2); Basophils % (A) 1 %; Eosinophils # (A) 0.2 k/uL (0-0.7); Eosinophils % (A) 1 %; HCT 32.3 % (34.0-46.0); HGB 10.6 gm/dL (11.4-16.0); Lymphocytes # (A) 1.8 k/uL (1.0-4.8); Lymphocytes % (A) 15 %; MCHC 32.6 g/dL (31.0-37.0); MCV 94.9 fL (80.0-100.0); Mean Platelet Volume 8.3; Monocytes # (A) 0.7 k/uL (0-1.0); Monocytes % (A) 6 %; Neutrophils % (A) 75 %; Platelet Count 495 k/uL (150-450); RBC 3.41 m/uL (3.80-5.40)
[2019-11-02] MEDS: PANTOPRAZOLE 40 MG/10 ML VIAL IVP SCH ×2 (08:37→21:04)
[2019-11-02] MEDS: HEPARIN SODIUM,PORCINE 5,000 UNIT/ML 1 ML VIAL SQ SCH ×2 (08:37→21:04)
[2019-11-02 10:44] LABS: Hepatitis A Antibody IgM Non-Reactive (Non-Reactive); Hepatitis B Core IgM Non-Reactive (Non-Reactive); Hepatitis B Surface Antigen Non-Reactive (Non-Reactive); Hepatitis C IgG Antibody Non-Reactive (Non-Reactive)
--- NOTE | 2019-11-02 10:52 | NM ---
EXAMINATION TYPE: NM hepatobiliary wo EF DATE OF EXAM: 11/02/2019 COMPARISON: CT dated 11/01/2019 HISTORY: Status post cholecystectomy. Evaluate for bile leak. TECHNIQUE: After the intravenous administration of 4.67 mCi Tc 99m Mebrofenin hepatobiliary scintigra phy is performed. Immediate images post injection. FINDINGS: There is a photopenic defect in the region of the gallbladder fossa on initial images. No focal accum ulation of radiotracer is seen in the gallbladder fossa to suggest biloma. There is appropriate uptak e and washout of radiotracer throughout the liver during the examination and excretion due to biliary system into the small bowel by 12 minutes. IMPRESSION: No scintigraphic evidence of biliary leak. Therefore fluid collection within the gallblad reshma fossa likely represents abscess.
--- NOTE | 2019-11-02 13:57 | P.PN ---
Subjective Progress Note Date: 11/02/19 Principal diagnosis: Nausea and vomiting The patient is a 49-year-old female who is status post laparoscopic cholecystectomy for empyema of the gallbladder. She had been discharged home last week on oral antibiotics. She finished the antibiotics. She's had persistent nausea and vomiting. She was having some nausea on discharge which we initially felt was due to the pain medication. The patient denies any abdominal pain. Nausea is much improved on the IV antibiotics. Objective - Vital Signs Vital signs: Vital Signs Temp 98.5 F 11/02/19 07:00 Pulse 84 11/02/19 07:00 Resp 16 11/02/19 07:00 BP 116/67 11/02/19 07:00 Pulse Ox 94 L 11/02/19 07:00 Intake & Output 11/01/19 11/02/19 11/02/19 18:59 06:59 18:59 Intake Total 250 960 Balance 250 960 Intake: IV 960 Sodium Chloride 0.9% 1, 960 000 ml @ 120 mls/hr IV . Q8H20M [facility] Rx#:[id number] Oral 250 Other: Voiding Method Toilet # Voids 2 - Constitutional General appearance: Present: cooperative, no acute distress - Respiratory Respiratory: bilateral: CTA - Cardiovascular Rhythm: regular - Gastrointestinal General gastrointestinal: Present: normal bowel sounds, soft. Absent: tenderness Localized gastrointestinal: surgical scar: diffuse (Incisions are healing without signs of cellulitis or infection) - Labs CBC & Chem 7: 11/02/19 06:29 11/02/19 06:29 Labs: Abnormal Lab Results - Last 24 Hours (Table) 11/02/19 11/02/19 Range/Units 06:29 06:29 WBC 12.0 H (3.8-10.6) k/uL RBC 3.41 L (3.80-5.40) m/uL Hgb 10.6 L (11.4-16.0) gm/dL Hct 32.3 L (34.0-46.0) % Plt Count 495 H (150-450) k/uL Neutrophils # 9.0 H (1.3-7.7) k/uL Carbon Dioxide 21 L (22-30) mmol/L Glucose 62 L (74-99) mg/dL AST 41 H (14-36) U/L ALT 77 H (4-34) U/L Albumin 3.2 L (3.5-5.0) g/dL Microbiology - Last 24 Hours (Table) 11/01/19 23:57 Urine Culture - Preliminary Urine,Voided Assessment and Plan (1) JOSUE (acute kidney injury) Current Visit: Yes Status: Acute Code(s): N17.9 - ACUTE KIDNEY FAILURE, UNSPECIFIED SNOMED Code(s): 46976941 (2) Intractable nausea and vomiting Current Visit: Yes Status: Acute Code(s): R11.2 - NAUSEA WITH VOMITING, UNSPECIFIED SNOMED Code(s): 249082897 Plan: The HIDA scan showed no evidence of bile leak. The ultrasound and CT showed a small fluid collection which would be expected in a patient with an acutely inflamed gallbladder such as hers. She has no abdominal pain. Doubt intra-abdominal abscess. Possibly a viral syndrome. We'll start her on clear liquids. Remove the kirt. If she tolerates clear liquids advance the diet tomorrow. Currently nonsurgical
--- NOTE | 2019-11-02 17:33 | XR ---
EXAMINATION TYPE: XR chest 2V DATE OF EXAM: 11/02/2019 COMPARISON: 11/01/2019 HISTORY: Atelectasis short of breath TECHNIQUE: FINDINGS: Heart and mediastinum are normal. There is small mild blunting of the costophrenic angles. There are no hilar masses. There is no heart failure. Bony thorax is intact. IMPRESSION: Pleural reaction and fluid at the lung bases is increased compared to yesterday. Normal h eart.
--- NOTE | 2019-11-02 18:12 | PN ---
PROGRESS NOTE DATE OF SERVICE: 11/02/2019 This 49-year-old woman was admitted with incessant nausea, vomiting, also had possible acute gastritis. Patient also had dehydration and renal failure also. The patient recently had a recent laparoscopic cholecystectomy for cholecystitis and gallbladder empyema. Abdominal and pelvis CT scan was noted, done yesterday last night which showed collection in gallbladder fossa. A hepatobiliary scan was noted, showed no evidence of any sonographic evidence of biliary leak. Some fluid collection was noted. Dr. Harding has seen the patient and doubting intraabdominal abscess at this time, possibly viral syndrome. Clear liquids have been initiated and the kirt have been removed. PAST MEDICAL HISTORY: Reviewed. REVIEW OF SYSTEMS: CARDIOVASCULAR: No angina or palpitations. RESPIRATION: As mentioned earlier. GI: As mentioned earlier. : No dysuria. CENTRAL NERVOUS SYSTEM: No numbness or weakness. CURRENT MEDICATIONS: Reviewed and include: 1. Tylenol p.r.n. 2. [place] 5 mg q.6h. 3. Xanax 0.2 t.i.d. 4. Heparin 5000 subcu b.i.d. 5. Dilaudid 0.5 mg p.r.n. 6. Reglan 10 mg q.6h p.r.n. 7. Narcan. 8. Zofran. 9. Protonix 40 mg IV b.i.d. 10.Restoril 15 mg q.h.s. p.r.n. PHYSICAL EXAM: Patient is alert and oriented times three. Pulse 84, blood pressure 116/67, respirations 16, temperature 98.4, pulse ox 94% on room air. HEENT: Conjunctivae are normal. NECK: No JVD. CARDIOVASCULAR: S1, S2 muffled. RESPIRATORY SYSTEM: Breath sounds diminished at the bases. Scattered rhonchi and crackles. ABDOMEN: Soft, nontender. No mass palpable. No guarding. No rigidity. LEGS no edema. No swelling. NERVOUS SYSTEM: Higher functions as mentioned earlier. Moves all four limbs. No focal deficits. LYMPHATICS: No lymph nodes palpable in the neck, axillae or groin. SKIN: No ulcer, no rashes and no bleeding. JOINTS: No active deforming arthropathy. LABS: WBC 12, hemoglobin 10.6, platelets 495. Otherwise, glucose 62, AST is 41, ALT 77. Tox screen is negative and hepatitis panel is negative. Endocrine is also negative. ASSESSMENT: 1. Incessant nausea and vomiting, possible acute gastritis. 2. Dehydration with acute renal failure possibly prerenal acute tubular necrosis, present on admission. 3. History of recent laparoscopic cholecystectomy for cholecystitis and gallbladder empyema. 4. Fluid collection in the gallbladder fossa as expected, abscess unlikely per surgery. 5. Elevated AST ALT, alkaline phosphatase is improving. 6. Increased WBC. 7. Increased platelets, possibly reactive. 8. 2.5 cm echogenic area along the gallbladder fossa, possibly. Expected fluid collection per Dr. Harding as detailed above. RECOMMENDATIONS AND DISCUSSION: In this 49-year-old woman who presented with multiple complex medical issues, we will monitor the patient closely, continue the current medications, management and symptomatic treatment. Otherwise, I would recommend fluid to D5 0.9. Otherwise, closely monitor. Symptomatic treatment. I would avoid Tylenol at this time and continue to monitor. [place] has been ordered for severe pain. Prognosis guarded. Further recommendations to follow. See orders for details. Repeat CBC, CMP. Discussed with family who understands and agrees. Further recommendations to follow. MMODL / IJN: [id number] /
[2019-11-02] MEDS: ALBUTEROL NEBULIZED 2.5 MG/3 ML INHALATION SCH (20:09)
--- NOTE | 2019-11-02 23:56 | CONS ---
CONSULTATION DATE OF SERVICE: 11/02/2019. REASON FOR CONSULTATION: Gallbladder fossa abscess. HISTORY OF PRESENT ILLNESS: The patient is a 49 -year-old female, who is status post laparoscopic cholecystectomy performed by Dr. Harding on October 23, 2019. The patient did have a drain and was subsequently discharged home after staying in the hospital for 4 days. The patient gallbladder fossa cultures were positive for Klebsiella pneumoniae. The patient was on IV antibiotic therapy and subsequently discharged home on oral Cipro. The patient said she did well for the next 2 days, however, afterwards started having intractable nausea, vomiting and she was unable to keep anything down. I did mention she was not clear if she has kept her antibiotic down as well or not. The patient presented back to [facility] on October 31, 2019 with the symptoms of persistent nausea and vomiting and unable to keep anything down. The patient denies significant pain to the right upper quadrant area. The patient did have some chills but denies high-grade fever. Denies having any diarrhea. With these symptoms, the patient has been evaluated by the ER physician. Since admission to hospital, the patient did not have any high-grade fever. The patient did have a white count of 13.7, repeat is 12,000 today. Liver enzymes are mildly elevated. Urine drug screen was negative. Hepatitis panel is negative. The patient did have a CT abdominal and pelvis completed which did show collection in the gallbladder fossa consider abscess within the frontal diagnosis, biloma with postsurgical air could be considered. Subsequently the patient did have hepatobiliary scan which did not show any biliary leak. I was asked to see the patient with concern for gallbladder fossa abscess and need for antibiotic therapy. REVIEW OF SYSTEMS: Positive points have been mentioned in HPI. Rest of the systems are negative. PAST MEDICAL HISTORY: Recent acute cholecystitis. PAST SURGICAL HISTORY: Cholecystectomy. SOCIAL HISTORY: Denies smoking, drinking or drug use. FAMILY HISTORY: No pertinent findings noticed. ALLERGIES: TO LATEX AND NATURAL RUBBER. MEDICATIONS: Medications include the patient is currently on Restoril, saline, Protonix, Zofran, Narcan, Reglan, Xanax, Ventolin, [place], and Tylenol. PHYSICAL EXAMINATION: Blood pressure is 146/80 with a pulse of 87, temperature 98.5. She is 96% on room air. General description is a middle-aged female, lying in bed in no distress. No tachypnea or accessory muscles of respiration use. HEENT: Shows slight pallor. No scleral icterus. Oral mucosal membranes are dry. No pharyngeal erythema or thrush. NECK: Trachea central. No thyromegaly. LUNGS unlabored breathing, decreased breath sounds in the bases. No wheeze. HEART S1, S2. Regular rate and rhythm. No added sounds. ABDOMEN: Soft, minimally in the right upper quadrant area. No guarding. No rigidity. No organomegaly. EXTREMITIES: No edema of the feet. SKIN examination: No rash or mass palpable. NEUROLOGICAL: Patient is awake, alert, oriented times three. Mood and affect normal. LABS: Hemoglobin is 10.8, white count 12,000. BUN of 12. Creatinine 0.92; electrolytes have been normal. Liver enzymes mildly elevated. CRP is 32. Urine drug screen has been negative. DIAGNOSTIC IMPRESSION AND PLAN: Patient presented to hospital with intractable vomiting in this patient who recently did have a laparoscopic cholecystectomy for a gangrenous cholecystitis. Subsequent abdominal cultures positive for Klebsiella pneumonia. The patient was discharged on oral antibiotic. Unfortunately, patient may not have kept those antibiotics and now presented to the hospital with intractable vomiting with evidence of fluid collection. Abscess not entirely excluded. PLAN: 1. Blood culture has been obtained. 2. We will start the patient on Rocephin 2 g daily. 3. Drainage of this fluid has been discussed in detail with the surgeon, which may not be done, could not be done CT-guided. 4. We will monitor the patient closely and if not putting her thru any further drainage procedure. 5. If the patient's symptoms resolve with no further nausea and vomiting and able to keep medication down, may recommend discharge home on oral antibiotic and close outpatient followup. 6. Clinical course discussed in detail with the surgeon on the phone. Thank you for this consultation. Will follow the patient along with you. MMODL / IJN: [id number] / SHWETA
[2019-11-03] MEDS: METOCLOPRAMIDE 5 MG/ML 2 ML VIAL IVP SCH ×5 (00:46→23:55)
[2019-11-03] MEDS: SODIUM CHLORIDE 0.9% 1,000 ML IV SCH ×2 (00:49→08:08)
[2019-11-03 07:54] LABS: Basophils # (A) 0.1 k/uL (0-0.2); Basophils % (A) 1 %; Eosinophils # (A) 0.2 k/uL (0-0.7); Eosinophils % (A) 3 %; HCT 33.1 % (34.0-46.0); Lymphocytes # (A) 1.7 k/uL (1.0-4.8); Lymphocytes % (A) 19 %; MCH 30.8 pg (25.0-35.0); MCHC 33.1 g/dL (31.0-37.0); Mean Platelet Volume 8.9; Monocytes # (A) 0.8 k/uL (0-1.0); Monocytes % (A) 9 %; Neutrophils % (A) 67 %; Platelet Count 489 k/uL (150-450); RBC 3.56 m/uL (3.80-5.40)
[2019-11-03 08:06] LABS: ALT 57 U/L (4-34); AST 28 U/L (14-36); African American GFR (CKD) >90 (>60 ml/min/1.73 sqM); Albumin 3.3 g/dL (3.5-5.0); Alkaline Phosphatase 117 U/L (38-126); Anion Gap 10 mmol/L; Blood Urea Nitrogen 10 mg/dL (7-17); Calcium 8.8 mg/dL (8.4-10.2); Carbon Dioxide 22 mmol/L (22-30); Chloride 107 mmol/L (98-107); Glucose 75 mg/dL (74-99); Non-African American GFR(CKD) >90 (>60 ml/min/1.73 sqM); Potassium 4.2 mmol/L (3.5-5.1); Sodium 139 mmol/L (137-145); Total Bilirubin 0.5 mg/dL (0.2-1.3); Total Protein 6.5 g/dL (6.3-8.2)
[2019-11-03] MEDS: PANTOPRAZOLE 40 MG/10 ML VIAL IVP SCH ×2 (08:08→21:29)
[2019-11-03] MEDS: HEPARIN SODIUM,PORCINE 5,000 UNIT/ML 1 ML VIAL SQ SCH ×2 (08:08→21:28)
[2019-11-03 08:33] LABS: C Reactive Protein 28.1 mg/L (<10.0)
[2019-11-03] MEDS: ALBUTEROL NEBULIZED 2.5 MG/3 ML INHALATION SCH ×3 (09:25→19:51)
[2019-11-03] MEDS: DEXTROSE 5%-0.9% NACL 1,000 ML IV SCH ×2 (09:30→21:35)
[2019-11-03 15:26] VITALS: BMI 24.3
--- NOTE | 2019-11-03 15:37 | P.PN ---
Subjective Progress Note Date: 11/03/19 Principal diagnosis: Nausea and vomiting The patient is seen on rounds. She is tolerating clear liquid diet. Nausea is improved on antibiotic. Denies any abdominal pain. Objective - Vital Signs Vital signs: Vital Signs Temp 98.7 F 11/03/19 07:00 Pulse 81 11/03/19 07:00 Resp 16 11/03/19 07:00 BP 127/83 11/03/19 07:00 Pulse Ox 94 L 11/03/19 07:00 Intake & Output 11/02/19 11/03/19 11/03/19 18:59 06:59 18:59 Intake Total 960 540 Balance 960 540 Weight 77.111 kg Intake: IV 960 Sodium Chloride 0.9% 1, 960 000 ml @ 120 mls/hr IV . [id number] TAPAN Rx#:[id number] Oral 540 Other: Voiding Method Toilet # Voids 2 2 - Constitutional General appearance: Present: cooperative, no acute distress - Gastrointestinal General gastrointestinal: Present: normal bowel sounds, soft. Absent: distended, tenderness Localized gastrointestinal: surgical scar: diffuse (Incision is healing well) - Labs CBC & Chem 7: 11/03/19 06:31 11/03/19 06:31 Labs: Abnormal Lab Results - Last 24 Hours (Table) 11/02/19 11/03/19 11/03/19 Range/Units 16:25 06:31 06:31 RBC 3.56 L (3.80-5.40) m/uL Hgb 11.0 L (11.4-16.0) gm/dL Hct 33.1 L (34.0-46.0) % Plt Count 489 H (150-450) k/uL ALT 57 H (4-34) U/L C-Reactive Protein 32.0 H 28.1 H (<10.0) mg/L Albumin 3.3 L (3.5-5.0) g/dL Microbiology - Last 24 Hours (Table) 11/01/19 23:57 Urine Culture - Final Urine,Voided 11/01/19 16:32 Blood Culture - Preliminary Blood No Growth after 24 hours Assessment and Plan (1) JOSUE (acute kidney injury) Current Visit: Yes Status: Acute Code(s): N17.9 - ACUTE KIDNEY FAILURE, UNSPECIFIED SNOMED Code(s): 48404257 (2) Intractable nausea and vomiting Current Visit: Yes Status: Acute Code(s): R11.2 - NAUSEA WITH VOMITING, UNSPECIFIED SNOMED Code(s): 356085702 Plan: Clinically the patient is improving. There is a small fluid collection in the gallbladder fossa which would be expected in this situation. I discussed the case with Dr. Yang last night. The fluid collection is small and not in an area which would be amenable to percutaneous drainage for culture. Clinically she is improving. We'll continue the antibiotics. If she was to develop abdominal pain, high fevers or elevated white count, then we could repeat the ultrasound or CT. Diet will be advanced as tolerated. Currently nonsurgical
--- NOTE | 2019-11-03 15:48 | PN ---
PROGRESS NOTE DATE OF SERVICE: 11/03/2019 This 49-year-old woman who was admitted with incessant nausea, vomiting, possible acute gastritis is being closely monitored. The patient also had a suspicion of fluid collection of the gallbladder. Empiric antibiotics were recommended by Dr. Yang. Clinically the patient is slightly better. No chest pain. No palpitations. A chest x- ray was done which was reviewed personally by me. It showed some pleural reaction and possibly some atelectasis. No chest pain. No palpitations. No fever. PHYSICAL EXAMINATION: Alert and oriented x3. The pulse is 81, blood pressure 127/83, respirations 16, temperature 98.7, pulse ox 94% on room air. HEENT: Conjunctivae normal. NECK: No jugular venous distention. CARDIOVASCULAR SYSTEM: S1, S2 muffled. RESPIRATORY SYSTEM: Breath sounds diminished at the bases. No rhonchi. No crackles. ABDOMEN: Soft, non-tender. No mass palpable. LEGS: No edema. No swelling. NERVOUS SYSTEM: No focal deficit. LABS: CRP is 32, procalcitonin 0.04. Urine acetone was positive. ASSESSMENT: 1. Incessant nausea, vomiting, possible acute gastritis, present on admission. 2. Dehydration with acute renal failure, possibly prerenal acute tubular necrosis, present on admission. 3. History of recent laparoscopic cholecystectomy for cholecystitis and gallbladder empyema. 4. Fluid collection in the gallbladder fossa abscess unlikely per Surgery. 5. Elevated AST, ALT, alkaline phosphatase; improving. 6. Increased white count. 7. Increased platelets, possibly reactive. 8. Echogenic area measuring 2.4 cm along the gallbladder fossa, as above. RECOMMENDATIONS AND DISCUSSION: In this 49-year-old woman who presented with multiple complex medical issues, we will monitor the patient closely, continue the current medications, continue with symptomatic treatment. Dr. Yang has recommended empiric antibiotics. Will continue to monitor. Repeat the CBC. Otherwise, continue with bland clear liquids per Surgery. Guarded prognosis. Further recommendations to follow. See orders for further details. MMODL / IJN: [id number] /
--- NOTE | 2019-11-03 23:57 | PN ---
PROGRESS NOTE DATE OF SERVICE: 11/03/2019 REASON FOR FOLLOW UP: Question of gallbladder fossa abscess. INTERVAL HISTORY: The patient is currently afebrile, she has been breathing comfortably. The patient's nausea and vomiting has improved. Denies any discomfort to the right upper quadrant area. No chest pain, shortness of breath or cough and no diarrhea. PHYSICAL EXAMINATION: Blood pressure 115/71 with a pulse of 80, temperature 98.4. She is 96% on room air. General description is a middle-aged female up in the bed in no distress. Respiratory system: Unlabored breathing. Clear to auscultation anteriorly. Heart S1, S2. Regular rate and rhythm. ABDOMEN: Soft, no tenderness. EXTREMITIES: No edema of the feet. LABS: Hemoglobin 11. White count 9.0, BUN of 10, creatinine 0.76. DIAGNOSTIC IMPRESSION/PLAN: Patient admitted to hospital with intractable vomiting in this patient who did have recent cholecystectomy for a gangrenous cholecystitis with gallbladder fossa fluid question of sepsis, source is reactive. Recommend keeping the patient on IV antibiotics to be transitioned to oral to be on the safe side. The patient did have symptomatic improvement. Continue supportive care. MMODL / IJN: [id number] / MTDD
[2019-11-04] MEDS: METOCLOPRAMIDE 5 MG/ML 2 ML VIAL IVP SCH ×4 (05:37→22:58)
[2019-11-04] MEDS: ALBUTEROL NEBULIZED 2.5 MG/3 ML INHALATION SCH ×3 (07:28→18:54)
[2019-11-04] MEDS: PANTOPRAZOLE 40 MG/10 ML VIAL IVP SCH ×2 (08:15→20:30)
[2019-11-04] MEDS: HEPARIN SODIUM,PORCINE 5,000 UNIT/ML 1 ML VIAL SQ SCH ×2 (08:15→20:30)
[2019-11-04 08:32] LABS: Basophils # (A) 0.1 k/uL (0-0.2); Basophils % (A) 2 %; Eosinophils # (A) 0.3 k/uL (0-0.7); Eosinophils % (A) 3 %; HCT 35.8 % (34.0-46.0); HGB 11.5 gm/dL (11.4-16.0); Lymphocytes # (A) 1.8 k/uL (1.0-4.8); Lymphocytes % (A) 20 %; MCH 29.6 pg (25.0-35.0); MCV 92.4 fL (80.0-100.0); Mean Platelet Volume 9.2; Monocytes # (A) 0.7 k/uL (0-1.0); Monocytes % (A) 8 %; Neutrophils # (A) 5.8 k/uL (1.3-7.7); Neutrophils % (A) 66 %; Platelet Count 455 k/uL (150-450); RBC 3.87 m/uL (3.80-5.40); RDW 13.1 % (11.5-15.5); WBC 8.7 k/uL (3.8-10.6)
[2019-11-04 08:45] LABS: ALT 43 U/L (4-34); AST 23 U/L (14-36); African American GFR (CKD) >90 (>60 ml/min/1.73 sqM); Albumin 3.4 g/dL (3.5-5.0); Alkaline Phosphatase 111 U/L (38-126); Anion Gap 10 mmol/L; Blood Urea Nitrogen 5 mg/dL (7-17); Calcium 8.8 mg/dL (8.4-10.2); Carbon Dioxide 24 mmol/L (22-30); Chloride 107 mmol/L (98-107); Glucose 97 mg/dL (74-99); Non-African American GFR(CKD) >90 (>60 ml/min/1.73 sqM); Potassium 3.7 mmol/L (3.5-5.1); Sodium 141 mmol/L (137-145); Total Bilirubin 0.4 mg/dL (0.2-1.3); Total Protein 6.7 g/dL (6.3-8.2)
[2019-11-04] MEDS: DEXTROSE 5%-0.9% NACL 1,000 ML IV SCH (09:43)
--- NOTE | 2019-11-04 15:16 | PN ---
PROGRESS NOTE DATE OF SERVICE: 11/04/2019 This is a 49-year-old woman who recently had a cholecystectomy and was admitted with nausea, vomiting, and significant difficulties in keeping everything down. Patient had severe dehydration, acute renal failure, present on admission. Patient also had a fullness in the gallbladder fossa, abscess completely not ruled out. Dr. Yang recommended IV antibiotics with conservative line of treatment, IV antibiotics. The patient is feeling slightly better. Patient will be closely monitored at this time. Chest x-ray showed no pneumonia. PAST MEDICAL HISTORY: Reviewed. REVIEW OF SYSTEMS: Cardiovascular system: No angina. RESPIRATORY SYSTEM: As mentioned earlier. GI: As mentioned earlier : No dysuria. NERVOUS SYSTEM: No numbness or weakness. . CURRENT MEDICATIONS: Reviewed and include: 1. Tylenol 500 mg q.6 p.r.n. 2. [place] 5 mg q.6 p.r.n. 3. Ventolin. 4. Xanax 0.5 t.i.d. 5. Rocephin 2 g IV b.i.d. 6. Heparin 5 subcu b.i.d. 7. Reglan. 8. Narcan. 9. Zofran. 10.Protonix. 11.Restoril, dose reviewed. PHYSICAL EXAM: Patient is alert, oriented x3. Pulse is 79, blood pressure 138/80, respirations 16, temperature 97.6, pulse ox 94% on room air. HEENT: Conjunctivae normal. Oral mucosa moist. NECK: No jugular venous distention. No lymph node enlargement. CARDIOVASCULAR SYSTEMS: S1, S2, muffled. RESPIRATORY: Breath sounds diminished at the bases, no rhonchi, no crackles. ABDOMEN: Soft, mild diffuse discomfort on palpation. No guarding. No rigidity. No mass palpable. LEGS: No edema, no swelling. NERVOUS SYSTEM: No focal deficits. LABS: WBC is 8.3, hemoglobin is 11.5, platelets are 455. The AST is 23 and ALT is 43, BUN and creatinine noted. ASSESSMENT: 1. Severe dehydration with acute renal failure, possibly prerenal, acute tubular necrosis present on admission. 2. Incessant nausea, vomiting, possible acute gastritis. 3. Fullness in the gallbladder fossa, abscess not completely ruled out per Infectious Disease. 4. History of recent laparoscopic cholecystectomy for cholecystitis and gallbladder empyema. 5. Elevated AST, ALT, alkaline phosphatase, improving. 6. Increased WBC. 7. Increased platelets, possibly reactive. 8. Echogenic area measuring 2.4 cm along the gallbladder fossa. RECOMMENDATION: In this 49-year-old woman who presented with multiple complex medical issues. I would recommend to continue with the IV antibiotics. Continue the Protonix. Continue the rest of medications. Gradually increase the diet if it is tolerated. Otherwise, will continue to monitor The patient has significant medical complication as listed above. The patient is to be in the hospital as an inpatient for more than 2 nights because the patient was unable to keep anything down and was not able to keep even the antibiotics the patient was prescribed during the previous admission, so there is no way this patient will be discharged currently, and I would strongly recommend to approve inpatient admission. I left message for the priority authorization line for some sort of [id number] discussion, but; however, please refer to the above mentioned notes for the details. Once again, as mentioned earlier, this patient was extremely sick at the time of admission. The patient is getting better with current management. The patient is not ready to be discharged yet from my medical assessment, so please once again refer to the above mentioned notes and I would recommend to continue the IV antibiotics at this time until the patient is able to take p.o. food and tablets normally. Once again, the prognosis guarded because of above mentioned multiple complex medical issues. Will follow closely with Surgery and Infectious Disease. Further recommendations to follow. CAROLINE / TIESHAN: [id number] /
--- NOTE | 2019-11-04 17:22 | PN ---
PROGRESS NOTE DATE OF SERVICE: 11/04/2019 REASON FOR FOLLOWUP: Gallbladder fossa fluid collection, question of abscess. INTERVAL HISTORY: The patient is currently afebrile. The patient is feeling better, breathing comfortably. No further nausea or vomiting has been reported. No chest pain, shortness of breath or cough. PHYSICAL EXAMINATION: Blood pressure 123/75 with a pulse of 79, temperature 98.9. She is 98% on room air. General description is a middle-aged female lying in bed in no distress. RESPIRATORY SYSTEM: Unlabored breathing. Clear to auscultation anteriorly. HEART: S1, S2. Regular rate and rhythm. ABDOMEN: Soft. No tenderness. LABS: Hemoglobin 11.5, white count 8.7, BUN of 5, creatinine 0.72. Blood culture has been negative. DIAGNOSTIC IMPRESSION AND PLAN: Patient admitted to hospital with intractable nausea and vomiting in this patient who did have a recent laparoscopic cholecystectomy for empyema of the gallbladder with inability to keep her antibiotics down; subsequently did have fluid in the gallbladder fossa with concern for possible abscess. The patient clinically is responding to the Rocephin; to be continued, transitioning to Cipro on discharge to finish her course of therapy and continue with supportive care. MMODL / IJN: [id number] /
[2019-11-05] MEDS: DEXTROSE 5%-0.9% NACL 1,000 ML IV SCH ×3 (05:09→23:52)
[2019-11-05] MEDS: METOCLOPRAMIDE 5 MG/ML 2 ML VIAL IVP SCH ×4 (05:09→23:09)
[2019-11-05] MEDS: PANTOPRAZOLE 40 MG/10 ML VIAL IVP SCH ×2 (08:40→20:05)
[2019-11-05] MEDS: HEPARIN SODIUM,PORCINE 5,000 UNIT/ML 1 ML VIAL SQ SCH ×2 (08:40→20:05)
[2019-11-05] MEDS: ALBUTEROL NEBULIZED 2.5 MG/3 ML INHALATION SCH ×3 (09:51→19:28)
--- NOTE | 2019-11-05 17:29 | P.PN ---
Subjective Progress Note Date: 11/05/19 Principal diagnosis: Nausea and vomiting The patient is doing well. Tolerating a diet without nausea or vomiting. No fever or abdominal pain Objective - Vital Signs Vital signs: Vital Signs Temp 97.8 F 11/05/19 15:00 Pulse 85 11/05/19 15:00 Resp 16 11/05/19 15:00 BP 108/67 11/05/19 15:00 Pulse Ox 97 11/05/19 15:00 Intake & Output 11/04/19 11/05/19 11/05/19 18:59 06:59 18:59 Intake Total 1140 Balance 1140 Intake: Intake, IV Titration 600 Amount Dextrose 5%-0.9% NaCl 1, 600 000 ml @ 75 mls/hr IV . [id number] [facility]AN Rx#:[id number] Oral 540 Other: Voiding Method Toilet Toilet # Voids 3 1 1 - Constitutional General appearance: Present: cooperative, no acute distress - Gastrointestinal General gastrointestinal: Present: soft - Labs CBC & Chem 7: 11/04/19 07:08 11/04/19 07:08 Labs: Microbiology - Last 24 Hours (Table) 11/02/19 16:25 Blood Culture - Preliminary Blood No Growth after 48 hours 11/01/19 16:32 Blood Culture - Preliminary Blood No Growth after 72 hours Assessment and Plan (1) JOSUE (acute kidney injury) Current Visit: Yes Status: Acute Code(s): N17.9 - ACUTE KIDNEY FAILURE, UNSPECIFIED SNOMED Code(s): 18294329 (2) Intractable nausea and vomiting Current Visit: Yes Status: Acute Code(s): R11.2 - NAUSEA WITH VOMITING, UNSPECIFIED SNOMED Code(s): 390427865 Plan: Doing well. Will follow up as out patient
--- NOTE | 2019-11-05 18:58 | PN ---
PROGRESS NOTE DATE OF SERVICE: 11/05/2019 This 49-year-old woman who had recently had a cholecystectomy was admitted with nausea, vomiting, significant difficulties in keeping anything down including the tablets. The patient was extremely sick. The patient had features of acute renal failure present on admission. With IV fluids the creatinine is improving and the patient is also feeling better. Currently the diet is also being advanced. No chest pain. No palpitations. No fever. EXAM: Alert and oriented x3. Pulse 81, blood pressure 130/70, respiration 17, temperature 98.2, pulse ox 94% on room air. HEENT: Conjunctivae normal. Oral mucosa moist. NECK: No jugular venous distention. No lymph node enlargement. CARDIOVASCULAR: S1, S2. RESPIRATORY: Diminished breath sounds at the bases. No rhonchi, no crackles. ABDOMEN: Soft, nontender. LEGS: No edema, no swelling. NERVOUS SYSTEM: No focal deficits. LABS: WBC 8.7, hemoglobin 11, platelets 455. Otherwise, ALT is 43. Drug screen is negative. Abdominal CT scan noted. ASSESSMENT: 1. Severe dehydration with acute renal failure, possibly prerenal acute tubular necrosis present on admission. 2. Increased nausea and vomiting, possible acute gastritis. 3. Fullness in the gallbladder fossa, abscess not completely ruled out per Infectious Disease. 4. History of recent laparoscopic cholecystectomy for cholecystitis and gallbladder empyema. 5. Elevated AST, ALT and alkaline phosphatase, improving. 6. Increased WBC. 7. Increased platelets, possibly reactive. 8. measuring 2.4 cm in gallbladder area. RECOMMENDATIONS AND DISCUSSION: In this 49-year-old woman who presented with multiple complex medical issues, we will monitor the patient closely, continue the current medication, continue the symptomatic treatment. I recommend continued the IV antibiotics. Otherwise, closely follow with Infectious Disease. Advance the diet slowly. Continue to monitor. The patient is well. The patient may be discharged in the next 24-48 hours. Otherwise, follow the recommendations per Infectious Disease and Surgery. Stable but prognosis extremely guarded because of multiple complex medical issues. Further recommendations to follow. MMODL / IJN: [id number] / MTDD
--- NOTE | 2019-11-05 19:34 | PN ---
PROGRESS NOTE DATE OF SERVICE: 11/05/2019 REASON FOR FOLLOWUP: Possible gallbladder fossa abscess. INTERVAL HISTORY: The patient is currently afebrile. The patient is breathing comfortably. Denies having any chest pain, shortness of breath, or cough. No further nausea, vomiting. No diarrhea. Tolerating her diet. PHYSICAL EXAMINATION: On examination, her blood pressure is 130/71 with a pulse of 81, temperature 98.9. She is 94% on room air. General description is a middle-aged female lying in bed in no distress. RESPIRATORY SYSTEM: Unlabored breathing. Clear to auscultation anteriorly. HEART: S1, S2. Regular rate and rhythm. ABDOMEN: Soft. No tenderness. LABS: Hemoglobin 11.5, white count 8.7, BUN of 5, creatinine 0.72. DIAGNOSTIC IMPRESSION AND PLAN: Patient admitted to hospital with intractable nausea and vomiting in this patient who did have a recent gangrenous cholecystitis post cholecystectomy with fluid in the gallbladder fossa versus possible abscess. Patient clinically responding to Rocephin will be continued and transitioned to oral Cipro 400 mg twice a day for about a week on discharge and monitor clinical course closely. MMODL / IJN: [id number] /
[2019-11-06] MEDS: METOCLOPRAMIDE 5 MG/ML 2 ML VIAL IVP SCH ×2 (06:08→11:56)
[2019-11-06] MEDS: ALBUTEROL NEBULIZED 2.5 MG/3 ML INHALATION SCH ×2 (07:10→10:47)
[2019-11-06 07:43] VITALS: BP 120/69; PULSE 72; RESP 16; TEMP 98.6
[2019-11-06] MEDS: PANTOPRAZOLE 40 MG/10 ML VIAL IVP SCH (08:35)
[2019-11-06] MEDS: HEPARIN SODIUM,PORCINE 5,000 UNIT/ML 1 ML VIAL SQ SCH (08:35)
[2019-11-06] MEDS ORDERED: PANTOPRAZOLE 40 MG TABLET PO SCH (17:30)
--- NOTE | 2019-11-06 17:33 | PN ---
PROGRESS NOTE DATE OF SERVICE: 11/06/2019. REASON FOR FOLLOWUP: Gallbladder fossa fluid collection. Questionable abscess. INTERVAL HISTORY: The patient is currently afebrile. The patient is breathing comfortably. The patient denies having any chest pain. No shortness of breath or cough. No nausea, vomiting, abdominal pain, or any diarrhea. PHYSICAL EXAMINATION: Blood pressure 120/59, pulse 72. Temperature 98.6. She is 93% on room air. General description is a middle aged female lying in bed in no distress. Respiratory system: Unlabored breathing. Clear to auscultation anteriorly. Heart: S1, S2. Regular rate and rhythm. Abdomen soft, no tenderness. LABS: Hemoglobin 11.5, white count 8.7, BUN 5, creatinine 0.72. DIAGNOSTIC IMPRESSION/PLAN: Patient who is status post cholecystectomy for acute gangrenous cholecystitis admitted to the hospital with intractable vomiting in this patient who did have a fluid collection in the gallbladder fossa area with concern for abscess. The patient clinically responding to Rocephin that will be transitioned to oral Cipro for a week to finish a course of therapy and advised not to use the anti nausea medication routinely and see how the patient does without that. Questions and concerns were answered. MMODL / IJN: [id number] / MTDD
--- NOTE | 2019-11-20 13:11 | P.DS ---
Providers Date of admission: 11/02/19 11:59 Expected date of discharge: 11/06/19 Attending physician: Erica Wade Consults: 10/31/19 23:00 Consult Physician Routine Consulting Provider: Mando Flores Consult Reason/Comments: intractable NV Do you want consulting provider notified?: Yes 11/02/19 12:01 Consult Physician Routine Consulting Provider: Asher Yang Consult Reason/Comments: poss abscess s/p nik 1 week Do you want consulting provider notified?: Already Contacted Primary care physician: Stated None Hospital Course: 49-year-old female presented to the emergency department with complaint of nausea and vomiting. She states that she did have a cholecystectomy on 10/23/2019 and was discharged a few days after the procedure. She states that she'll see has been home she has progressively felt worse. She states that she is not having a significant amount of abdominal pain. She complains of nausea and vomiting episodes. She complains of headache. She complains of extreme weakness. She states that even getting from the bed to her bathroom makes her feel exhausted. She states that she has not been able to keep down any fluids and has been vomiting even a glass of water. She denies any fevers or chills. She states she has not gotten a flu vaccine this year. Patient was evaluated by surgical service is following and recommendations - Due to nausea and vomiting, we will obtain an abdominal ultrasound to evaluate for any fluid collections - Based on laboratory work, does appear that the patient is dehydrated secondary to nausea and vomiting. Continue IV fluid resuscitation. - Continue Zofran and Reglan for antiemetic therapy - Consider influenza testing as the patient does appear to have flulike symptoms and not obvious postoperative pain HIDA scan was negative for acute cholecystitis; surgery deemed patient nonsurgical and she did have improvement with symptomatic treatment and was discharged in a stable condition with outpatient follow-up with surgery Patient Condition at Discharge: Fair Plan - Discharge Summary Discharge Rx Participant: Yes New Discharge Prescriptions: New Ondansetron Odt [Zofran Odt] 4 mg PO Q8HR PRN 3 Days #10 tab PRN Reason: Nausea Ciprofloxacin HCl [Cipro] 500 mg PO Q12HR #14 tablet Continue Multivitamins, Thera [Multivitamin (formulary)] 1 tab PO DAILY HYDROcodone/APAP 5-325MG [[place] 5-325] 1 - 2 tab PO Q4H PRN #15 tab PRN Reason: Pain Metoclopramide [Reglan] 10 mg PO ACHS PRN #10 tab PRN Reason: Nausea Ciprofloxacin HCl [Cipro] 500 mg PO BID #14 tab Discharge Medication List Multivitamins, Thera [Multivitamin (formulary)] 1 tab PO DAILY 10/19/19 [History] HYDROcodone/APAP 5-325MG [[place] 5-325] 1 - 2 tab PO Q4H PRN #15 tab 10/26/19 [Rx] Metoclopramide [Reglan] 10 mg PO ACHS PRN #10 tab 10/26/19 [Rx] Ciprofloxacin HCl [Cipro] 500 mg PO BID #14 tab 11/06/19 [Rx] Ciprofloxacin HCl [Cipro] 500 mg PO Q12HR #14 tablet 11/06/19 [Rx] Ondansetron Odt [Zofran Odt] 4 mg PO Q8HR PRN 3 Days #10 tab 11/06/19 [Rx] Follow up Appointment(s)/Referral(s): Em Harding DO [Doctor of Osteopathic Medicine] - 1 Week None,Stated [Primary Care Provider] - 1-2 days Discharge Disposition: HOME SELF-CARE
== END 2019-11-06 15:09 | disposition home or self-care (01) ==
LOC: EC 17:50 → 4SSUR 23:10 → OBSVTOIN 11-02 11:59 → INTOOBSV 11-02 11:59 → UNDODISIN 11-06 15:09
PROVIDERS: ADMIT Internal Medicine; ATTEND Internal Medicine
DX: R11.2 Nausea with vomiting, unspecified (principal); N17.9 Acute kidney failure, unspecified; E86.0 Dehydration; R74.0 Nonspecific elevation of levels of transaminase and lactic acid dehydrogenase [LDH]; D72.829 Elevated white blood cell count, unspecified; R51 Headache; R53.1 Weakness; Z91.040 Latex allergy status; Z90.49 Acquired absence of other specified parts of digestive tract; Z86.79 Personal history of other diseases of the circulatory system
CPT/HCPCS: 96376 ×6; 96361 ×6; 96366 ×3; 96367; 96372 ×6; 96375 ×2; 96365; 99285; 36415; 80053 ×4; 80074; 82150; 82009; 83690; 85025 ×4; 85610; 86140 ×2; 81003; 87040 ×2; 80306; 87086; 87502; 84145; 71045; 71046; 74018; 76700; 74176; 78226; G0378 ×7; A9537; J1644 ×6; J2765 ×6; J2405 ×2; J1956; J0696 ×4; C9113 ×6; 96374

== ENCOUNTER → 2022-01-10 | Outpatient (CLI) | payer MEDICAID ==
[2022-01-10 11:28] LABS: Creatine Kinase MB 0.3 ng/mL (0.0-2.4); Troponin I <0.012 ng/mL (0.000-0.034)
[2022-01-10 18:55] LABS: Basophils # (A) 0.07 X 10*3/uL (0.00-0.10); Basophils % (A) 0.9 %; Eosinophils # (A) 0.25 X 10*3/uL (0.04-0.35); Eosinophils % (A) 3.4 %; HCT 39.9 % (37.2-46.3); HGB 12.5 g/dL (12.0-15.0); Immature Grans, Automated 0.3 %; Lymphocytes # (A) 2.42 X 10*3/uL (0.90-5.00); Lymphocytes % (A) 32.8 %; MCH 29.3 pg (27.0-32.0); MCHC 31.3 g/dL (32.0-37.0); MCV 93.4 fL (80.0-97.0); Mean Platelet Volume 10.7 fL (9.5-12.2); Monocytes # (A) 0.72 X 10*3/uL (0.20-1.00); Monocytes % (A) 9.8 %; NRBC Per 100 WBC 0 /100 WBCS (0.0-0.0); Neutrophils # (A) 3.89 X 10*3/uL (1.80-7.70); Neutrophils % (A) 52.8 %; Platelet Count 310 X 10*3/uL (140-440); RBC 4.27 X 10*6/uL (4.10-5.20); RDW 13.2 % (11.5-14.5); WBC 7.37 X 10*3/uL (4.50-10.00)
[2022-01-11 00:49] LABS: ALT 47 U/L (8-44); AST 30 U/L (13-35); African American GFR (CKD) 115.3 (60.0-200.0); Albumin 4.5 g/dL (3.8-4.9); Albumin/Globulin Ratio 1.44 (1.60-3.17); Alkaline Phosphatase 90 U/L (41-126); BUN/Creat Ratio 15.97 Ratio (12.00-20.00); Calcium 9.9 mg/dL (8.7-10.3); Carbon Dioxide 22.8 mmol/L (20.0-27.5); Chloride 100 mmol/L (96-109); Chol/HDL Ratio 3.48 Ratio; Follicle Stimulating Hormone 30.3 mIU/mL; Globulin 3.1 g/dL (1.6-3.3); Glucose 93 mg/dL (70-110); LDL Cholesterol,Calculated 107.9 mg/dL (0.0-131.0); Non-African American GFR(CKD) 99.4 (60.0-200.0); Potassium 4.6 mmol/L (3.5-5.5); Sodium 142 mmol/L (135-145); Total Protein 7.6 g/dL (6.2-8.2)
[2022-01-11 04:44] LABS: Luteinizing Hormone 29.2 mIU/mL
== END | disposition home or self-care (01) ==
LOC: LABWHC1 09:39
PROVIDERS: ATTEND Nurse Practitioner Family
DX: Z00.00 Encounter for general adult medical examination without abnormal findings (principal); Z13.220 Encounter for screening for lipoid disorders; E55.9 Vitamin D deficiency, unspecified; E78.5 Hyperlipidemia, unspecified; R53.83 Other fatigue; R00.0 Tachycardia, unspecified
CPT/HCPCS: 36415; 80053; 80061; 82306; 82553; 82672; 83001; 83002; 83880; 84146; 84402; 84439; 84443; 84484; 85025

== ENCOUNTER 2022-01-16 11:31 | Inpatient (IN) | payer MEDICAID ==
[2022-01-16 11:37] LABS: Glucose,Whole Blood 132 mg/dL (75-99)
[2022-01-16] MEDS ORDERED: SODIUM CHLORIDE 0.9% 1,000 ML IV STA (11:51)
[2022-01-16] MEDS ORDERED: LORazepam 2 MG/ML INJ IV STA (11:52)
--- NOTE | 2022-01-16 11:55 | ED ---
General Adult HPI - General Stated complaint: palpitations Time Seen by Provider: 01/16/22 11:36 Source: patient, RN notes reviewed Mode of arrival: wheelchair Limitations: no limitations - History of Present Illness Initial comments: This a 51-year-old female presents emergency Department from a nuclear medicine for near syncope, convulsions. Patient reportedly was undergoing a stress test in which patient and off the treadmill went to the table to lay down she states that she does remember this and she became very dizzy, lightheaded feeling she reports that she started convulsing, throwing her extremities round, pelvis which she was somewhat coherent at that time. It was unclear she had a seizure but felt less likely. Patient has no significant past medical history states that she is on no medications. Patient states that she does not evening this morning. She states she was undergoing a stress test because she's been having palpitations, tachycardia per minute at nighttime make it difficult to sleep. Patient states she feels very tired, very anxious noted to be tachycardic. Report from responding cardiology there was no skin significant findings during stress test. - Related Data Home Medications Medication Instructions Recorded Confirmed No Known Home Medications 01/16/22 01/16/22 Allergies Allergy/AdvReac Type Severity Reaction Status Date / Time Latex, Natural Rubber Allergy Rash/Hives Verified 01/16/22 13:16 Review of Systems ROS Statement: Those systems with pertinent positive or pertinent negative responses have been documented in the HPI. ROS Other: All systems not noted in ROS Statement are negative. Past Medical History Past Medical History: No Reported History History of Any Multi-Drug Resistant Organisms: None Reported Past Surgical History: Cholecystectomy Additional Past Surgical History / Comment(s): abdominal surgery, spontaneous internal bleeding 2005. d&c Past Anesthesia/Blood Transfusion Reactions: Previous Problems w/ Anesthesia, Motion Sickness, Postoperative Nausea & Vomiting (PONV) Past Psychological History: No Psychological Hx Reported Past Alcohol Use History: None Reported Past Drug Use History: None Reported - Past Family History Father Family Medical History: No Reported History Mother Family Medical History: No Reported History General Exam Limitations: no limitations General appearance: alert, in no apparent distress, anxious Head exam: Present: atraumatic, normocephalic, normal inspection Eye exam: Present: normal appearance, PERRL, EOMI. Absent: scleral icterus, conjunctival injection, periorbital swelling ENT exam: Present: normal exam, normal oropharynx, mucous membranes moist Neck exam: Present: normal inspection, full ROM. Absent: tenderness, meningismus, lymphadenopathy Respiratory exam: Present: normal lung sounds bilaterally. Absent: respiratory distress, wheezes, rales, rhonchi, stridor Cardiovascular Exam: Present: regular rate, normal rhythm, normal heart sounds. Absent: systolic murmur, diastolic murmur, rubs, gallop, clicks GI/Abdominal exam: Present: soft, normal bowel sounds. Absent: distended, tenderness, guarding, rebound, rigid Neurological exam: Present: alert, oriented X3 Psychiatric exam: Present: anxious Course Vital Signs 01/16/22 01/16/22 11:48 14:58 Temperature 97.8 F Pulse Rate 129 H 107 H Respiratory 20 16 Rate Blood Pressure 161/80 100/61 O2 Sat by Pulse 100 98 Oximetry Medical Decision Making - Medical Decision Making case discussed with Dr. Baker recommends patient be admitted with cardiology, neurology consult. - Lab Data Result diagrams: 01/16/22 12:07 01/16/22 12:07 Lab Results 01/16/22 01/16/22 01/16/22 Range/Units 11:35 12:07 12:07 WBC 8.3 (3.8-10.6) k/uL RBC 4.28 (3.80-5.40) m/uL Hgb 13.3 (11.4-16.0) gm/dL Hct 39.8 (34.0-46.0) % MCV 92.8 (80.0-100.0) fL MCH 31.1 (25.0-35.0) pg MCHC 33.5 (31.0-37.0) g/dL RDW 13.4 (11.5-15.5) % Plt Count 349 (150-450) k/uL MPV 7.7 Neutrophils % 52 % Lymphocytes % 34 % Monocytes % 7 % Eosinophils % 3 % Basophils % 1 % Neutrophils # 4.3 (1.3-7.7) k/uL Lymphocytes # 2.8 (1.0-4.8) k/uL Monocytes # 0.6 (0-1.0) k/uL Eosinophils # 0.2 (0-0.7) k/uL Basophils # 0.1 (0-0.2) k/uL Sodium 137 (137-145) mmol/L Potassium 4.0 (3.5-5.1) mmol/L Chloride 105 (98-107) mmol/L Carbon Dioxide 18 L (22-30) mmol/L Anion Gap 14 mmol/L BUN 13 (7-17) mg/dL Creatinine 0.78 (0.52-1.04) mg/dL Est GFR (CKD-EPI)AfAm >90 (>60 ml/min/1.73 sqM) Est GFR (CKD-EPI)NonAf 87 (>60 ml/min/1.73 sqM) Glucose 128 H (74-99) mg/dL POC Glucose (mg/dL) 132 H (75-99) mg/dL POC Glu Grain Handler ID Judy Estes Calcium 9.6 (8.4-10.2) mg/dL Magnesium 1.9 (1.6-2.3) mg/dL Total Bilirubin 0.6 (0.2-1.3) mg/dL AST 46 H (14-36) U/L ALT 66 H (4-34) U/L Alkaline Phosphatase 96 (38-126) U/L Troponin I (0.000-0.034) ng/mL Total Protein 8.2 (6.3-8.2) g/dL Albumin 4.6 (3.5-5.0) g/dL Urine Color Urine Appearance (Clear) Urine pH (5.0-8.0) Ur Specific [place] (1.001-1.035) Urine Protein (Negative) Urine Glucose (UA) (Negative) Urine Ketones (Negative) Urine Blood (Negative) Urine Nitrite (Negative) Urine Bilirubin (Negative) Urine Urobilinogen (<2.0) mg/dL Ur Leukocyte Esterase (Negative) 01/16/22 01/16/22 Range/Units 12:07 13:57 WBC (3.8-10.6) k/uL RBC (3.80-5.40) m/uL Hgb (11.4-16.0) gm/dL Hct (34.0-46.0) % MCV (80.0-100.0) fL MCH (25.0-35.0) pg MCHC (31.0-37.0) g/dL RDW (11.5-15.5) % Plt Count (150-450) k/uL MPV Neutrophils % % Lymphocytes % % Monocytes % % Eosinophils % % Basophils % % Neutrophils # (1.3-7.7) k/uL Lymphocytes # (1.0-4.8) k/uL Monocytes # (0-1.0) k/uL Eosinophils # (0-0.7) k/uL Basophils # (0-0.2) k/uL Sodium (137-145) mmol/L Potassium (3.5-5.1) mmol/L Chloride (98-107) mmol/L Carbon Dioxide (22-30) mmol/L Anion Gap mmol/L BUN (7-17) mg/dL Creatinine (0.52-1.04) mg/dL Est GFR (CKD-EPI)AfAm (>60 ml/min/1.73 sqM) Est GFR (CKD-EPI)NonAf (>60 ml/min/1.73 sqM) Glucose (74-99) mg/dL POC Glucose (mg/dL) (75-99) mg/dL POC Glu Grain Handler ID Calcium (8.4-10.2) mg/dL Magnesium (1.6-2.3) mg/dL Total Bilirubin (0.2-1.3) mg/dL AST (14-36) U/L ALT (4-34) U/L Alkaline Phosphatase (38-126) U/L Troponin I <0.012 (0.000-0.034) ng/mL Total Protein (6.3-8.2) g/dL Albumin (3.5-5.0) g/dL Urine Color Light Yellow Urine Appearance Clear (Clear) Urine pH 6.5 (5.0-8.0) Ur Specific [place] 1.007 (1.001-1.035) Urine Protein Negative (Negative) Urine Glucose (UA) Negative (Negative) Urine Ketones 1+ H (Negative) Urine Blood Negative (Negative) Urine Nitrite Negative (Negative) Urine Bilirubin Negative (Negative) Urine Urobilinogen <2.0 (<2.0) mg/dL Ur Leukocyte Esterase Negative (Negative) Disposition Clinical Impression: Convulsions, Tachycardia, Seizure-like activity Disposition: ADMITTED IP TO THIS [facility] Condition: Fair Referrals: Derek Baker MD [Primary Care Provider] - 1-2 days
[2022-01-16 12:12] LABS: Basophils # (A) 0.1 k/uL (0-0.2); Basophils % (A) 1 %; Eosinophils # (A) 0.2 k/uL (0-0.7); Eosinophils % (A) 3 %; HCT 39.8 % (34.0-46.0); HGB 13.3 gm/dL (11.4-16.0); Lymphocytes # (A) 2.8 k/uL (1.0-4.8); Lymphocytes % (A) 34 %; MCH 31.1 pg (25.0-35.0); MCHC 33.5 g/dL (31.0-37.0); MCV 92.8 fL (80.0-100.0); Mean Platelet Volume 7.7; Monocytes # (A) 0.6 k/uL (0-1.0); Monocytes % (A) 7 %; Neutrophils # (A) 4.3 k/uL (1.3-7.7); Neutrophils % (A) 52 %; Platelet Count 349 k/uL (150-450); RBC 4.28 m/uL (3.80-5.40); RDW 13.4 % (11.5-15.5); WBC 8.3 k/uL (3.8-10.6)
--- NOTE | 2022-01-16 12:25 | CT ---
EXAMINATION TYPE: CT brain wo con DATE OF EXAM: 01/16/2022 COMPARISON: None HISTORY: Seizure. CT DLP: 1135.4 mGycm Automated exposure control for dose reduction was used. 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 Mild generalized degenerative change. No acute hem orrhage or mass effect. No midline shift. Calvarium intact. Changes of chronic sinusitis. Craniocervi javi junction maintained. Sella turcica has a normal appearance. Orbits are symmetric. IMPRESSION: 1. Prominent posterior fossa CSF collection could represent a prominent cisterna magna versus arachno id cyst recommend follow-up MRI.
[2022-01-16 12:30] LABS: ALT 66 U/L (4-34); AST 46 U/L (14-36); African American GFR (CKD) >90 (>60 ml/min/1.73 sqM); Albumin 4.6 g/dL (3.5-5.0); Alkaline Phosphatase 96 U/L (38-126); Anion Gap 14 mmol/L; Blood Urea Nitrogen 13 mg/dL (7-17); Calcium 9.6 mg/dL (8.4-10.2); Carbon Dioxide 18 mmol/L (22-30); Chloride 105 mmol/L (98-107); Glucose 128 mg/dL (74-99); Magnesium 1.9 mg/dL (1.6-2.3); Non-African American GFR(CKD) 87 (>60 ml/min/1.73 sqM); Sodium 137 mmol/L (137-145); Total Bilirubin 0.6 mg/dL (0.2-1.3); Total Protein 8.2 g/dL (6.3-8.2)
[2022-01-16 14:13] LABS: Appearance,Urine Clear (Clear); Bilirubin,Urine Negative (Negative); Blood,Urine Negative (Negative); Color,Urine Light Yellow; Glucose,Urine (UA) Negative (Negative); Ketones,Urine 1+ (Negative); Leukocyte Esterase,Urine Negative (Negative); Nitrite,Urine Negative (Negative); PH, Urine 6.5 (5.0-8.0); Protein,Urine Negative (Negative); Specific Gravity,Urine 1.007 (1.001-1.035); Urobilinogen,Urine <2.0 mg/dL (<2.0)
[2022-01-16] MEDS ORDERED: NALOXONE 0.4 MG/ML 1 ML VIAL IV PRN (15:36)
[2022-01-16] MEDS: SODIUM CHLORIDE 0.9% 1,000 ML IV SCH (19:53)
--- NOTE | 2022-01-16 23:07 | HP ---
HISTORY AND PHYSICAL CHIEF COMPLAINT: Syncope, lethargy, mental status changes. This is the first known admission for this 51-year-old white female. She has been having problems with episodes of tachycardia and lightheadedness. She has not had chest pain. She has not had any syncope. She was being worked up and was sent for a stress echo and apparently after that became lightheaded and passed out with tachycardia of around 130 beats per minute. She was brought to the emergency room, where her pulse rate was as high as 140 with sinus and it was determined that she should be monitored and will be seen again by Cardiology. REVIEW OF SYSTEMS: She has not had any neurologic problems, headaches, chest pain, cough, hemoptysis, abdominal pain, nausea, vomiting, hematemesis, melena, hematochezia, cirrhosis, jaundice, hepatitis, renal failure, frequency, urgency, dysuria, incontinence, diabetes, etc. Past medical history, family history, and and personal and social histories are unremarkable otherwise. She is ALLERGIC to LATEX. She takes black cohosh for hot flashes and she is on vitamin D3. She never smoked and does not drink. PHYSICAL EXAMINATION: Blood pressure 128/78 with a pulse of 130, respirations of 35, and she is afebrile. In general she appeared to be in no acute distress. She was slightly lethargic. Head, ears, eyes, nose, mouth and throat were normal. Pupils equal and round. Gaze was conjugate. Carotids normal. Chest is clear. Cardiac exam demonstrated tachycardia with no murmurs or extra sounds. The abdomen was soft and nontender without any masses or visceromegaly. Extremities are normal. Neurologically she seemed to be intact. She is admitted to the hospital with diagnoses: 1. Syncopal episode. 2. Histories of rapid heart beating, etiology unknown. PLAN: 1. Bedrest. 2. IV fluids. 3. Telemetry. 4. Echocardiogram. 5. Consult with Cardiology. 6. Free T4. MMODL / IJN: [id number] /
[2022-01-17] MEDS: SODIUM CHLORIDE 0.9% 1,000 ML IV SCH ×2 (04:45→17:38)
[2022-01-17] MEDS: METOPROLOL TARTRATE 12.5 MG TAB PO SCH ×2 (08:11→19:49)
--- NOTE | 2022-01-17 08:46 | P.CNNES ---
History of Present Illness Consult date: 01/16/22 Requesting physician: Miguelito Mccord Reason for Consult: Seizure-like activity History of Present Illness: Patient is a 51-year-old female came to the hospital today at 11:31 AM for persistent tachycardia going on for last 2 months, progressively getting worse. Patient states that the fast heart rate wakes her up and then also keeps her up at night. It is present all the time, but sometimes it's worse than others. It never goes away. Patient states that after she came to the hospital, they ran bunch of tests. She had a stress test. She was undergoing echo, has not been completed, when she was sitting on the edge of the bed, did not feel well, developed tunnel vision although it was not completely gone. She felt dizzy, pounding, started shaking and couldn't sit. She had to lay down in bed. She did not feel well. She did not pass out, she believes. This prompted neurology consultation. It is reported in the records, that her heart rate was 1 30/m when she had this syncopal spell. Patient is following up with cardiology. Vital signs on arrival blood pressure 161/80, pulse rate 129, temperature 97.8. CT head showed prominent posterior fossa CSF collection could represent a prominent cisterna magna versus. Recommend follow-up MRI. EKG shows sinus tachycardia, abnormal ECG. Blood test shows normal CBC, normal chem 7, AST is mildly elevated 46 and ALT 66. Troponin negative. UA negative. Patient denies any history of seizures ever in the past. Denies any history of anxiety disorder or any panic attacks. Denies any excessive stresses in the house, or at work. 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 No family history of epilepsy. Patient denies any hypertension diabetes any tobacco or alcohol marijuana use. Review of Systems Completely normal. All 14 point of review systems reviewed and unremarkable. Otherwise as per HPI. Past Medical History Past Medical History: No Reported History Additional Past Medical History / Comment(s): High heart rate History of Any Multi-Drug Resistant Organisms: None Reported Past Surgical History: Cholecystectomy Additional Past Surgical History / Comment(s): abdominal surgery, spontaneous internal bleeding 2005. d&c Past Anesthesia/Blood Transfusion Reactions: Previous Problems w/ Anesthesia, Motion Sickness, Postoperative Nausea & Vomiting (PONV) Past Psychological History: No Psychological Hx Reported Past Alcohol Use History: None Reported Past Drug Use History: None Reported - Past Family History Father Family Medical History: No Reported History Mother Family Medical History: No Reported History Medications and Allergies Home Medications Medication Instructions Recorded Confirmed Type No Known Home Medications 01/16/22 01/16/22 History Allergies Allergy/AdvReac Type Severity Reaction Status Date / Time Latex, Natural Rubber Allergy Rash/Hives Verified 01/16/22 13:16 Physical Examination - Vital Signs Vital Signs: Vital Signs Temp Pulse Resp BP Pulse Ox 01/16/22 14:58 107 H 16 100/61 98 01/16/22 11:48 97.8 F 129 H 20 161/80 100 Intake and Output 01/16/22 01/16/22 01/16/22 06:59 14:59 22:59 Other: Weight 70.307 kg Patient is a middle aged female, very pleasant, in no acute distress. Patient is alert awake oriented to time place and person. Speech and language functions are normal. Attention, concentration and fund of knowledge is adequate. On cranial nerve examination, pupils are equal, round and reacting to light, visual garcia are full on confrontation, extraocular muscles are intact with no nystagmus. Face is symmetric, tongue protrudes to the midline. Palatal elevation and sensation normal, hearing and shoulder shrug normal, facial sensation normal. Shoulder shrug normal. On muscle strength testing, there is no pronator drift and the strength is normal in arms and legs distally and proximally. Deep tendon reflexes are symmetric, 2 in the upper and lower limbs and plantars downgoing. Sensory to touch is equal with no neglect. Cerebellar function showed no ataxia for [id number] testing. No dysdiadochokinesia. Tone and bulk of muscles normal. Gait deferred. On general examination, there is no carotid bruit or murmur, S1-S2 audible. Abdomen is soft nontender. Bowel sounds present. No organomegaly. Chest is clear. Peripheral pulses are present. No edema. Results - Laboratory Findings CBC and BMP: 01/16/22 12:07 01/16/22 12:07 Abnormal Lab Findings: Abnormal Labs 01/16/22 01/16/22 01/16/22 11:35 12:07 13:57 Carbon Dioxide 18 L Glucose 128 H POC Glucose (mg/dL) 132 H AST 46 H ALT 66 H Urine Ketones 1+ H Assessment and Plan Assessment: * Probable vasovagal syncope. The syncopal spell occurred right after a stress test before echo was being performed. * Tachycardia, unclear cause. Patient denies anxiety disorder or panic attacks. Plan: * EEG to rule out any epileptiform activity. * Other workup for tachycardia as per cardiology. TSH is normal. * Check orthostatics. * Thank you for the consult.
--- NOTE | 2022-01-17 09:58 | P.CRDCN ---
History of Present Illness History of present illness: HISTORY OF PRESENTING ILLNESS This is a pleasant 51-year-old female with no significant past medical history. 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 We have been asked to see in consultat ion for tachycardia. Patient was taken to the emergency department on 01/16/2022 after her treadmill exercise stress test. Yesterday patient was undergoing a exercise stress test. She stated that she has been having symptoms of palpitations and her PCP noted her to be tachycardic on an EKG and recommended a stress test. She did well, good exercise tolerance walked for 9.5minutes. Stress test was negative by EKG criteria. After the stress test, patient began to cry uncontrollably, appeared very anxious, and was hyperventilating. She was able to calm down slightly. However, continued to appear anxious, she was persistently tachycardic, she stated she did not feel well, layed down on the stretcher and started to have whole body movements that did not appear to be seizure like activity. Patient was placed on oxygen via nasal cannula. BP remained stable. HR 160s. She was maintaining oxygen saturations. A team was called and patient was brought to the emergency department. Patient did not lose consciousness, did not pass out. Patient overall is feeling better today. She denies any history of arrhythmia, CAD, PA, Stroke, Diabetes, hypertension, seizures. Denies history of anxiety, depression or anxiety attacks. She denies any illicit drug use, alcohol or tobacco use. Telemetry reviewed patient HR have improved since yesterdahy, has been in sinus mechanism with heart rates in the 70s80s DIAGNOSTICS EKG reveals sinus tachycardia, heart rate 106, no significant ST ST wave abnormalities Telemetry tracings indicate patient's heart rate improved, heart rates 70s/80s and sinus mechanism Brain CT with no acute intracranial abnormality Laboratory reviewed, CBC unremarkable, troponin negative, TSH within normal limits, sodium 137, potassium 4.0, BUN 13, serum crit 0.7. Patient states she's does not currently take any medications besides a multivitamin REVIEW OF SYSTEMS At the time of my exam: CONSTITUTIONAL: Denies fever or chills. CARDIOVASCULAR: Denies chest pain, shortness of breath, orthopnea, PND or palpitations. RESPIRATORY: Denies cough. GASTROINTESTINAL: Denies abdominal pain, diarrhea, constipation, nausea or vomiting. MUSCULOSKELETAL: Denies myalgias. NEUROLOGIC: Denies numbness, tingling, headacbe or weakness. ENDOCRINE: Denies fatigue, weight change, polydipsia or polyurina. GENITOURINARY: Denies burning, hematuria or urgency with micturation. HEMATOLOGIC: Denies history of anemia or bleeding. PHYSICAL EXAMINATION Blood pressure 128/79, heart rate 86, afebrile, oxygen saturation is 97% on room air CONSTITUTIONAL: No apparent distress. HEENT: Head is normocephalic. Pupils are equal, round. Sclerae anicteric. Mucous membranes of the mouth are moist. No JVD. No carotid bruit. CHEST EXAMINATION: Lungs are clear to auscultation. No chest wall tenderness is noted on palpation or with deep breathing. HEART EXAMINATION: Regular rate and rhythm. S1, S2 heard. No murmurs, gallops or rub. ABDOMEN: Soft, nontender. Positive bowel sounds. EXTREMITIES: 2+ peripheral pulses, no lower extremity edema and no calf tenderness. NEUROLOGIC EXAMINATION: Patient is awake, alert and oriented x3. ASSESSMENT Sinus Tachycardia Palpitations PLAN Obtain 2D echocardiogram and doppler study to assess cardiac structure and function. Start metoprolol 12.5mg BID Telemetry reviewed, patient in sinus mechanism HR has been 70s-90, no acute events or arrhythmia noted. From a cardiology perspective, if echocardiogram with no acute findings, ok to discharge and patient may follow up outpatient Nurse practitioner note has been reviewed by physician. Signing provider agrees with the documented findings, assessment, and plan of care. Past Medical History Past Medical History: No Reported History Additional Past Medical History / Comment(s): High heart rate History of Any Multi-Drug Resistant Organisms: None Reported Past Surgical History: Cholecystectomy Additional Past Surgical History / Comment(s): abdominal surgery, spontaneous internal bleeding 2005. d&c Past Anesthesia/Blood Transfusion Reactions: Previous Problems w/ Anesthesia, Motion Sickness, Postoperative Nausea & Vomiting (PONV) Past Psychological History: No Psychological Hx Reported Past Alcohol Use History: None Reported Past Drug Use History: None Reported - Past Family History Father Family Medical History: No Reported History Mother Family Medical History: No Reported History Medications and Allergies Home Medications Medication Instructions Recorded Confirmed Type No Known Home Medications 01/16/22 01/16/22 History Allergies Allergy/AdvReac Type Severity Reaction Status Date / Time Latex, Natural Rubber Allergy Rash/Hives Verified 01/16/22 13:16 Physical Exam Vitals: Vital Signs Temp Pulse Pulse Resp BP BP Pulse Ox 01/17/22 07:00 98.1 F 86 18 128/79 97 01/17/22 02:37 98.0 F 85 15 99/58 98 01/16/22 22:23 97.9 F 91 15 102/62 97 01/16/22 19:00 16 01/16/22 18:14 101 H 16 113/71 96 01/16/22 14:58 107 H 16 100/61 98 01/16/22 11:48 97.8 F 129 H 20 161/80 100 Intake and Output 01/16/22 01/17/22 01/17/22 22:59 06:59 14:59 Intake Total 120 Balance 120 Intake: Oral 120 Other: # Voids 1 1 Weight 70.307 kg Results 01/16/22 12:07 01/16/22 12:07 Cardiac Enzymes 01/16/22 01/16/22 Range/Units 12:07 12:07 AST 46 H (14-36) U/L Troponin I <0.012 (0.000-0.034) ng/mL CBC 01/16/22 Range/Units 12:07 WBC 8.3 (3.8-10.6) k/uL RBC 4.28 (3.80-5.40) m/uL Hgb 13.3 (11.4-16.0) gm/dL Hct 39.8 (34.0-46.0) % Plt Count 349 (150-450) k/uL Comprehensive Metabolic Panel 01/16/22 Range/Units 12:07 Sodium 137 (137-145) mmol/L Potassium 4.0 (3.5-5.1) mmol/L Chloride 105 (98-107) mmol/L Carbon Dioxide 18 L (22-30) mmol/L BUN 13 (7-17) mg/dL Creatinine 0.78 (0.52-1.04) mg/dL Glucose 128 H (74-99) mg/dL Calcium 9.6 (8.4-10.2) mg/dL AST 46 H (14-36) U/L ALT 66 H (4-34) U/L Alkaline Phosphatase 96 (38-126) U/L Total Protein 8.2 (6.3-8.2) g/dL Albumin 4.6 (3.5-5.0) g/dL Current Medications Generic Name Dose Route Start Last Admin Trade Name Freq PRN Reason Stop Dose Admin Sodium Chloride 1,000 mls @ 75 mls/hr 01/16/22 15:45 01/17/22 04:45 Saline 0.9% IV Not Given .[id number] TAPAN Lorazepam 1 mg 01/16/22 15:37 Lorazepam 2 Mg/Ml Inj IV Q4HR PRN Anxiety Metoprolol Tartrate 12.5 mg 01/17/22 09:00 01/17/22 08:11 Metoprolol Tartrate 12.5 Mg Tab PO 12.5 mg BID TAPAN Administration Naloxone HCl 0.2 mg 01/16/22 15:36 Naloxone 0.4 Mg/Ml 1 Ml Vial IV Q2M PRN Opioid Reversal Intake and Output 01/16/22 01/17/22 01/17/22 22:59 06:59 14:59 Intake Total 120 Balance 120 Intake: Oral 120 Other: # Voids 1 1 Weight 70.307 kg 01/16/22 12:07 01/16/22 12:07
--- NOTE | 2022-01-17 10:56 | ECHOF ---
Referral Reason:tachycardia, syncope MEASUREMENTS -------- HEIGHT: 175.3 cm WEIGHT: 70.3 kg BP: RVIDd: 2.1 cm (< 3.3) IVSd: 0.8 cm (0.6 - 1.1) LVIDd: 3.3 cm (3.9 - 5.3) LVPWd: 0.8 cm (0.6 - 1.1) IVSs: 1.4 cm LVIDs: 2.1 cm LVPWs: 1.4 cm LAESV Index (A-L): 17.46 ml/m Ao Diam: 2.8 cm (2.0 - 3.7) AV Cusp: 2.0 cm (1.5 - 2.6) LA Diam: 2.5 cm (2.7 - 3.8) MV EXCURSION: 14.881 mm (> 18.000) MV EF SLOPE: 75 mm/s (70 - 150) EPSS: 0.2 cm MV E Walter: 0.93 m/s MV DecT: 150 ms MV A Walter: 0.72 m/s MV E/A Ratio: 1.29 RAP: 5.00 mmHg RVSP: 25.88 mmHg FINDINGS -------- This was a technically good study. The left ventricular size is normal. Left ventricular wall thickness is normal. Overall left vent ricular systolic function is normal with, an EF between 55 - 60 %. The diastolic filling pattern is normal for the age of the patient {E/E'}. The right ventricle is normal in size. The left atrial size is normal. Normal LA size by volume 22+/-6 ml/m2. The right atrial size is normal. The aortic valve is trileaflet and appears structurally normal. The mitral valve is normal. There is trace mitral regurgitation. The tricuspid valve appears structurally normal. Trace tricuspid regurgitation present. Right ivone tricular systolic pressure is normal at < 35 mmHg. There is no pulmonic regurgitation present. The aortic root size is normal. Normal inferior vena cava with normal inspiratory collapse consistent with estimated right atrial pre ssure of 5 mmHg. There is no pericardial effusion. CONCLUSIONS -------- 1. The left ventricular size is normal. 2. Left ventricular wall thickness is normal. 3. Overall left ventricular systolic function is normal with, an EF between 55 - 60 %. 4. The diastolic filling pattern is normal for the age of the patient {E/E'} 5. There is trace mitral regurgitation. 6. Trace tricuspid regurgitation present. 7. There is no pericardial effusion. CHILD ATTENDANT: Saskia Burris RDCS
[2022-01-17] MEDS: LORazepam 2 MG/ML INJ IV PRN (13:40)
--- NOTE | 2022-01-17 15:03 | EEG ---
ELECTROENCEPHALOGRAM REPORT DATE OF SERVICE: 01/17/2022 PREAMBLE: This is a 51-year-old female with a syncopal spell, rule out seizure. EEG FINDINGS: This is a 21-channel digital EEG recorded with video competent, utilizing 10/20 international system with referential and bipolar montages. Background consists of well developed, well regulated, moderate voltage activity in 10 hertz alpha. Background is posterior-dominant and reactive to eye opening and closing. Photic driving response was seen with some flash frequencies. Some drowsiness was seen with appearance of bilaterally symmetric theta frequency rhythm. Deeper stages of sleep were not seen. No focal or generalized epileptiform activity was seen. IMPRESSION: This is a normal awake and drowsy EEG. No focal, lateralized or epileptiform activity was seen. MMODL / IJN: [id number] /
--- NOTE | 2022-01-17 15:48 | XR ---
EXAMINATION TYPE: XR orbit pre-MRI foreign body DATE OF EXAM: 01/17/2022 COMPARISON: None HISTORY: Headache syncope TECHNIQUE: Pre-MRI orbits in 3 projections FINDINGS: No metallic foreign bodies in or about the orbits are evident and could indicate MRI. Sella appears normal. Paranasal sinuses appear clear. IMPRESSION: 1. No metallic foreign bodies to contraindicate MRI within the [id number].
[2022-01-18 00:33] LABS: Hepatitis B Surface AB- Quant 40.3 mIU/mL; Hepatitis B Surface Antibody Reactive (Nonreactive)
[2022-01-18 04:41] LABS: Hepatitis A Antibody IgM Nonreactive (Nonreactive); Hepatitis B Core IgM Nonreactive (Nonreactive); Hepatitis C IgG Antibody Nonreactive (Nonreactive)
[2022-01-18] MEDS: METOPROLOL TARTRATE 12.5 MG TAB PO SCH ×2 (08:24→20:09)
[2022-01-18] MEDS: SODIUM CHLORIDE 0.9% 1,000 ML IV SCH ×2 (08:24→20:09)
--- NOTE | 2022-01-18 08:39 | P.PN ---
Subjective Progress Note Date: 01/17/22 Patient was seen for a follow-up. Patient is laying comfortably in the bed. Patient has a flat affect. Patient states that she had another episode today. At around 1 to 1:30 PM, she was laying in the bed talking to Dr. Baker, when she was not feeling well, started seeing double, felt "off", nauseous started shaking trembling, felt like her body is coming out of the skin, had trouble breathing. Her heart rate went up to 147. She denied any chest pain. She did have palpitations which always is there. This episode lasted for 1-2 minutes. Now she feels fine, laying comfortably in the bed. Patient has also mentioned to the nursing staff, that she is things that are not there. Objective - Vital Signs Vital signs: Vital Signs Temp 98.1 F 01/18/22 01:05 Pulse 59 L 01/18/22 01:05 Resp 18 01/18/22 01:50 BP 99/65 01/18/22 01:05 Pulse Ox 97 01/18/22 01:05 Intake & Output 01/17/22 01/18/22 01/18/22 18:59 06:59 18:59 Intake Total 300 Balance 300 Intake: Oral 300 Other: # Voids 1 1 - Exam Patient's mental status, speech language functions, cranial nerves are normal muscle strength is normal. No ataxia. - Labs CBC & Chem 7: 01/16/22 12:07 01/16/22 12:07 Labs: Abnormal Lab Results - Last 24 Hours (Table) 01/17/22 Range/Units 15:08 Hep Bs Antibody Reactive A (Nonreactive) Assessment and Plan Assessment: * Current spell today appears more like a panic attack. Probable underlying anxiety disorder. * Event after stress test appeared more like vasovagal syncope. The syncopal spell occurred right after a stress test before echo was being performed. * Tachycardia, unclear cause. Patient denies anxiety disorder or panic attacks. Plan: * EEG was normal awake and drowsy. No epileptiform activity was seen. * Other workup for tachycardia as per cardiology. TSH is normal. * Check orthostatics. * Suggest psychiatric consultation to rule out panic attacks and anxiety disorder.
--- NOTE | 2022-01-18 10:09 | P.PN ---
Subjective Progress Note Date: 01/18/22 Patient was seen for a follow-up. Patient is laying comfortably in the bed. No further spells of near syncope. Patient tells me that yesterday since 11 AM, she started seeing double vision. This lasted for couple hours, and after her syncopal spell as mentioned below, the double vision resolved. Since then she has not had any double vision. Patient denies any hallucinations. Patient states that she had another episode today. At around 1 to 1:30 PM, she was laying in the bed talking to Dr. Baker, when she was not feeling well, started seeing double, felt "off", nauseous started shaking trembling, felt like her body is coming out of the skin, had trouble breathing. Her heart rate went up to 147. She denied any chest pain. She did have palpitations which always is there. This episode lasted for 1-2 minutes. Now she feels fine, laying comfortably in the bed. Patient has also mentioned to the nursing staff, that she is things that are not there. Objective - Vital Signs Vital signs: Vital Signs Temp 97.5 F L 01/18/22 07:00 Pulse 82 01/18/22 07:00 Resp 16 01/18/22 07:00 BP 114/70 01/18/22 07:00 Pulse Ox 96 01/18/22 07:00 Intake & Output 01/17/22 01/18/22 01/18/22 18:59 06:59 18:59 Intake Total 300 Balance 300 Intake: Oral 300 Other: # Voids 1 1 - Exam Patient's mental status, speech language functions, cranial nerves are normal. Pupils are equal, round and reacting. Visual garcia are full on confrontation. Extraocular muscles are intact with no nystagmus. Face is symmetric and tongue protrudes the midline. Her muscle strength is normal. No ataxia. Sensations are equal. - Labs CBC & Chem 7: 01/16/22 12:07 01/16/22 12:07 Labs: Abnormal Lab Results - Last 24 Hours (Table) 01/17/22 Range/Units 15:08 Hep Bs Antibody Reactive A (Nonreactive) Assessment and Plan Assessment: * 51-year-old female with history of palpitations for a few months, had a syncopal spell after stress test, which appeared vasovagal in nature. She had another spell yesterday, which appeared somewhat panic attack, rule out anxiety disorder. * Diplopia lasting for 2 hours prior to the panic type spell yesterday, unclear etiology. Current examination is normal. Plan: * EEG was normal awake and drowsy. No epileptiform activity was seen. * Check MRI of brain with and without contrast for transient episode of diplopia * 2-D echo revealed normal left ventricular size. Left ventricular wall thickness is normal. EF is between 55-60%. Trace MR. * Other workup for tachycardia as per cardiology. TSH is normal. * Check orthostatics. * Suggest psychiatric consultation to rule out panic attacks and anxiety disorder.
--- NOTE | 2022-01-18 10:28 | P.CN ---
Psychiatric Consult - . Consult date: 01/18/22 Consult:: 01/18/22 10:00 IDENTIFYING DATA: This patient is a 51-year-old female, currently lives with her in a house has 2 kids and works for the [employer] business. REASON FOR REFERRAL: Psychiatry was consulted for anxiety, hallucinations HISTORY OF PRESENT ILLNESS: The patient presented to the hospital after undergoing a cardiac stress test. Patient apparently had convulsions and near syncope while doing the stress test. Patient got off the treadmill and felt dizzy and lightheaded and was admitted for evaluation and management. Patient also suspected to have seizure-like activities and neurology has been following. Apparently EEG has been normal for an negative for any seizure-like activity. Patient apparently had questionable anxiety and therefore psychiatry was consulted. There is claims the patient is doing fine this morning however did have an episode of tachycardia earlier on in the morning which she did not witness. She is claiming that patient is not suicidal. Patient was seen lying comfortably in the bed and was fairly pleasant and polite with mortgage or loan underwriter. She states that she is doing fine today however did have a "episode" of tachycardia and feeling unwell earlier this morning. She states that she does not know it is coming from. She is denying any overt anxiety at home or in the hospital. She states that "my life is good my relationship is good at my and I have great kids". She was fairly future oriented and positive. She claims that is mainly a heart rate that begins to be elevated and she does not know why. She states that she has been having poor sleep and frequent awakenings. She states that her mood is "fine". She missed a fair appetite. At this time patient denies any suicidal or homical ideations, intent or plan. Patient denies any auditory, visual hallucinations and denies any paranoia or delusions. Patients admits to using no recreational drugs or cigarettes. PAST PSYCHIATRIC HISTORY: Patient has no known psychiatric history. Patient denies being on any psychiatric medications. Patient denies any previous psychiatric hospitalizations. Patient denies any psychiatric outpatient follow- up. Patient denies any history of suicide attempts in the past. PAST MEDICAL HISTORY: denies. ALLERGIES: as per EMR. CHEMICAL DEPENDENCY HISTORY: as per HPI. FAMILY PSYCHIATRIC/SUBSTANCE USE HISTORY: denies SOCIAL HISTORY: Patient was born and raised in [facility]. She states that she completed high school. She claims that she has 2 kids. They have moved away. She lives currently in a house with her . She works for the [employer] business. She denies any legal history. MENTAL STATUS EXAM: General Appearance: Patient appears to be stated age is alert, pleasant, and cooperative. Patient appears to have fair hygiene and grooming wearing hospital gown with fair eye contact. Behavior: Patient is calmly lying in bed without any agitated behavior. Speech: Patient's speech is fluent and nonpressured. Mood/Affect: Patient reports their mood is "ok", affect is congruent Suicidality/Homicidality: Patient denies having any suicidal or homicidal ideation intent or plan. Perceptions: Patient denies any visual hallucinations and denies any auditory hallucinations Though content/process: There is no evidence of any delusional thought content and thought process is linear and goal-directed. Future oriented. Memory and concentration: AOX3, grossly intact for the purposes of this session. Can spell "WORLD" backwards Judgment and insight: Fair IMPRESSIONS: Possibly anxiety disorder r/o secondary to a general medical condition PLAN: -At this time patient DOES NOT meet criteria for inpatient psychiatric admission. -Would recommend the following medication changes/additions: Offered patient to start her on Remeron to help mainly with sleep and possibly anxiety and patient agreed to start, we'll start 15 mg daily at bedtime given a two-week supply to see if patient is benefiting from this and she can follow up with her PCP. -recording studio setup worker to provide patient with outpatient mental health/psychiatry resources for appropriate follow up upon discharge -Communicated plan to patient's nurse -Psychiatry will sign off at this time -Please contact with any questions. 01/18/22 10:23
--- NOTE | 2022-01-18 14:46 | PN ---
PROGRESS NOTE DATE OF SERVICE: 01/17/2022 CHIEF COMPLAINT: Tachycardia. HISTORY OF PRESENT ILLNESS: This lady suddenly had an episode where she became extremely anxious and short of breath and was complaining of rapid heart beating. She is in sinus rhythm. PHYSICAL EXAMINATION: Her chest is clear. Cardiac exam does demonstrate sinus tachycardia. Abdomen is soft, nontender. IMPRESSION: 1. Episodes of sinus tachycardia. 2. Panic disorder. PLAN: Continue her workup with Neurology and Psychiatry. She will also be referred to Cardiology. MMODL / IJN: [id number] /
--- NOTE | 2022-01-18 14:46 | PN ---
PROGRESS NOTE CHIEF COMPLAINT: Tachycardia and agitation. HISTORY OF PRESENT ILLNESS: This lady is being evaluated by Neurology and Psychiatry. So far her studies have been unremarkable. She will be referred to Cardiology. Thyroid is also normal. PHYSICAL EXAMINATION: Vital signs are normal. Chest is clear. Cardiac exam is normal. Abdomen is soft, nontender. IMPRESSION: Episodes of extreme anxiety and panic with tachycardia. PLAN: Await complete evaluation by Psychiatry, and she will also be referred to Cardiology. She will be admitted. MMODL / IJN: [id number] /
[2022-01-18] MEDS ORDERED: MIRTAZAPINE 15 MG TAB PO SCH (21:00)
[2022-01-18 22:25] VITALS: RESP 16
[2022-01-19 08:19] VITALS: BP 103/52; PULSE 69; TEMP 97.8
[2022-01-19] MEDS: METOPROLOL TARTRATE 12.5 MG TAB PO SCH (08:45)
--- NOTE | 2022-01-19 10:53 | P.PN ---
Subjective Progress Note Date: 01/19/22 Patient was seen for a follow-up. Patient is laying comfortably in the bed. No further spells of near syncope. No further episodes of diplopia. Patient still has some headache but not unusual. No other neurological symptoms. Patient feels her palpitations has much improved since started on cardiac medication. Patient was also seen by psychiatry since started on Remeron. This morning she was noticing difficulty waking up but no other side effects. Objective - Vital Signs Vital signs: Vital Signs Temp 97.8 F 01/19/22 08:00 Pulse 69 01/19/22 08:00 Resp 16 01/19/22 08:00 BP 103/52 01/19/22 08:00 Pulse Ox 96 01/19/22 08:00 Intake & Output 01/18/22 01/19/22 01/19/22 18:59 06:59 18:59 Intake Total 118 Balance 118 Intake: Oral 118 Other: # Voids 4 2 - Exam Patient's mental status, speech language functions, cranial nerves are normal. Pupils are equal, round and reacting. Visual garcia are full on confrontation. Extraocular muscles are intact with no nystagmus. Face is symmetric and tongue protrudes the midline. Her muscle strength is normal. No ataxia. Sensations are equal. - Labs CBC & Chem 7: 01/19/22 11:29 01/19/22 11:29 Assessment and Plan Assessment: * 51-year-old female with history of palpitations for a few months, had a synco pal spell after stress test, which appeared vasovagal in nature. She had another spell 01/17/2022, which appeared somewhat panic attack, rule out anxiety disorder. * Diplopia lasting for 2 hours prior to the panic type spell 01/17/2022, unclear etiology. Current examination is normal. Plan: * EEG was normal awake and drowsy. No epileptiform activity was seen. * MRI of brain with and without contrast is normal. No recent infarct. Paranasal sinus disease posterior aspect posterior fossa magna cisterna magna or arachnoid cyst redemonstrated. I personally reviewed MRI and agree with the findings. * 2-D echo revealed normal left ventricular size. Left ventricular wall thickness is normal. EF is between 55-60%. Trace MR. * Other workup for tachycardia as per cardiology. TSH is normal. * Psychiatry input appreciated. Patient started on Remeron. * Discussed with patient about aspirin regimen 81 mg, but she declined. * Discussed with Dr. Burnham. * Neurologically clear.
[2022-01-19 11:59] LABS: Basophils # (A) 0.1 k/uL (0-0.2); Basophils % (A) 1 %; Eosinophils # (A) 0.3 k/uL (0-0.7); Eosinophils % (A) 4 %; HCT 41.1 % (34.0-46.0); HGB 12.9 gm/dL (11.4-16.0); Lymphocytes # (A) 2.3 k/uL (1.0-4.8); Lymphocytes % (A) 26 %; MCH 29.7 pg (25.0-35.0); MCHC 31.3 g/dL (31.0-37.0); MCV 94.9 fL (80.0-100.0); Mean Platelet Volume 7.5; Monocytes # (A) 0.8 k/uL (0-1.0); Monocytes % (A) 9 %; Neutrophils # (A) 5.2 k/uL (1.3-7.7); Neutrophils % (A) 59 %; Platelet Count 286 k/uL (150-450); RBC 4.33 m/uL (3.80-5.40); RDW 12.9 % (11.5-15.5)
[2022-01-19 12:16] LABS: African American GFR (CKD) >90 (>60 ml/min/1.73 sqM); Anion Gap 6 mmol/L; Blood Urea Nitrogen 17 mg/dL (7-17); Calcium 9.2 mg/dL (8.4-10.2); Carbon Dioxide 28 mmol/L (22-30); Chloride 107 mmol/L (98-107); Glucose 95 mg/dL (74-99); Non-African American GFR(CKD) >90 (>60 ml/min/1.73 sqM); Potassium 4.4 mmol/L (3.5-5.1); Sodium 141 mmol/L (137-145)
[2022-01-19] MEDS: LORazepam 2 MG/ML INJ IV PRN (12:30)
--- NOTE | 2022-01-19 13:27 | MR ---
EXAMINATION TYPE: MR brain wo/w con DATE OF EXAM: 01/19/2022 COMPARISON: CT brain 3 days earlier. HISTORY: Diplopia, Seizures TECHNIQUE: Multiplanar, multisequence images of the brain and brainstem is performed without and with IV contras t, utilizing 7 mL intravenous Gadavist . FINDINGS: Diffusion weighted images demonstrate no evidence of a recent infarct or other diffusion ab normality. There is no extra-axial fluid collection or significant white matter signal abnormality. The ventricular system and cisternal spaces are normal in size and appearance. The brain volume is age appropriate. Midline structures demonstrate normal morphology. Suprasellar cistern is maintained. Prominence of C SF in the posterior aspect posterior fossa could reflect arachnoid cyst or yeimi cisterna magna The cr aniocervical junction appears within normal limits. Post contrast images demonstrate no abnormal enh ancement. The dural venous sinuses appear patent. Mild to moderate mucosal thickening in the ethmoid sinuses bilaterally. Dependent fluid in the right maxillary sinus is now present. The globes are inta ct bilaterally. IMPRESSION: No MRI evidence for recent infarct. Paranasal sinus disease now present as detailed above. Posterior aspect posterior fossa yeimi cisterna magna or arachnoid cyst redemonstrated.
--- NOTE | 2022-01-20 17:52 | P.DS ---
Providers Date of admission: 01/18/22 13:09 Expected date of discharge: 01/19/22 Attending physician: Derek Baker Consults: 01/16/22 15:36 Consult Physician Urgent Consulting Provider: Liya Fonseca Consult Reason/Comments: Seizure-like activity Do you want consulting provider notified?: Yes 01/16/22 15:37 Consult Physician Routine Consulting Provider: Ave Hickman Consult Reason/Comments: tachycardia, stress test today Do you want consulting provider notified?: Yes 01/17/22 13:33 Consult Physician Routine Consulting Provider: Enoch Aquino Consult Reason/Comments: anxiety, halucinations Do you want consulting provider notified?: Yes 01/18/22 10:41 Consult Physician Routine Consulting Provider: [facility] Consult Reason/Comments: arrhythmia Do you want consulting provider notified?: Yes Primary care physician: Derek Baker Hospital Course: Final diagnosis Palpitations Episodes of Tachycardia Possible panic disorder Anxiety Parasinus disease as noted on MRI of the Brain Full code Discharge disposition Patient is being discharged in a stable condition with guarded prognosis to home. Patient will follow-up with Dr. Baker in the outpatient setting upon discharge. Patient is to also follow up with cardiology and neurology. Resources to follow up with [facility] for counseling. Patient was started on Remeron per psychiatry. Total time taken is greater than 35 minutes. Hospital Course This is a 51-year-old female who was recently admitted with palpiatations and a possible panic attack or syncopal episode after performing a stress test. Patient was evaluated by neurology, psychiatry, and cardiology and will follow up outpatient. Studies including MRI of the brain were negative with some display of parasinus disease and instructed the patient to follow up outpatient. Currently no reports of chest pain, shortness of breath, or palpitations. Patient is afebrile. No reports of nausea or vomiting and patient is tolerating diet. Patient will be discharged home today. On exam vital signs are stable. Cardio S1, S2 are muffled. Respiratory system shows diminished breath sounds at the bases with no wheezing or rhonchi noted. Abdomen is soft and nontender. Nervous system shows no focal deficits. Please refer to medication reconciliation sheet for a list of medications. The impression and plan of care has been dictated by Judy Gar, Nurse Practitioner as directed. Dr. Jaylen MD I have performed a history and examination and MDM of this patient, discussed the same with the dictator, and agree with the dictator's assessment and plan as written ,documented as a scribe. Based on total visit time, I have performed more than 50% of the visit. Patient Condition at Discharge: Fair Plan - Discharge Summary New Discharge Prescriptions: New Metoprolol Tartrate [Lopressor] 12.5 mg PO BID #60 tab Mirtazapine [Remeron] 15 mg PO HS 30 Days #30 tab Discharge Medication List Metoprolol Tartrate [Lopressor] 12.5 mg PO BID #60 tab 01/19/22 [Rx] Mirtazapine [Remeron] 15 mg PO HS 30 Days #30 tab 01/19/22 [Rx] Follow up Appointment(s)/Referral(s): Derek Baker MD [Primary Care Provider] - 1-2 days Phi Braga MD [Medical Doctor] - 1 Week Daniel Fairbanks MD [STAFF PHYSICIAN] - 01/30/22 4:00 pm Patient Instructions/Handouts: Syncope (DC), Tachycardia (GEN) Activity/Diet/Wound Care/Special Instructions: Activity Limited until follow-up Follow-up with primary care provider on discharge Continue taking medications as prescribed Follow-up with [facility]/psychiatry in the outpatient setting Follow-up with cardiology outpatient Discharge/Stand Alone Forms: Who Do I Call?, Community Resources Discharge Disposition: HOME SELF-CARE
--- NOTE | 2022-01-22 17:18 | DS ---
DISCHARGE SUMMARY DATE OF DISCHARGE: 01/19/2022 CHIEF COMPLAINT: Syncopal episode with tachycardia and anxiety. HISTORY OF PRESENT ILLNESS AND PHYSICAL EXAMINATION: Details of this lady's history and physical can be found in the initial workup. LABORATORY STUDIES: While she was in the hospital she had laboratory studies, details of which can be found in the laboratory section of her chart. COURSE IN THE HOSPITAL: After admission she was placed on bedrest, started on intravenous fluids and placed on telemetry. She was seen by Cardiology, Neurology and Psychiatry. It was difficult to tell what could have been the etiology of her symptoms. It was thought that some of it may be due to anxiety. She had no neurologic issues identified. She was doing well and it was felt that she could be discharged on January 19. FINAL DIAGNOSES: 1. Syncopal episodes. 2. Tachycardia. 3. Anxiety. OPERATIONS: None. CONSULTATIONS: 1. Cardiology. 2. Neurology. 3. Psychiatry. She is improved. MMJEY / TIESHAN: [id number] /
== END 2022-01-19 15:11 | disposition home or self-care (01) | DRG 310 ==
LOC: EC 11:31 → 6NMEDSUR 14:36 → OBSVTOIN 01-18 13:09
PROVIDERS: ADMIT Family Medicine; ATTEND Family Medicine
DX: R00.0 Tachycardia, unspecified (principal); R55 Syncope and collapse; F41.0 Panic disorder [episodic paroxysmal anxiety]; H53.2 Diplopia; R51.9 Headache, unspecified; R06.4 Hyperventilation; N95.1 Menopausal and female climacteric states; Z91.040 Latex allergy status; R56.9 Unspecified convulsions
CPT/HCPCS: 36415; 70030; 70450; 70553; 80048; 80053; 81003; 83036; 83735; 84443; 84484; 85025; 86705; 86706; 86709; 86803; 93005; 93306; 95816; 96361; 96374; 99285

== ENCOUNTER → 2022-01-16 | Outpatient (CLI) | payer MEDICAID ==
--- NOTE | 2022-01-16 15:09 | EST ---
EXERCISE STRESS AGE: 51 SEX: F HT: 5'9" WT: 155 lbs. PROTOCOL: Morgan STAGE: 4 DURATION OF EXERCISE: 9:30 HEART RATE REST: 93 BLOOD PRESSURE REST: 149/81 MAXIMUM HEART RATE ACHIEVED: 183 MAXIMUM BLOOD PRESSURE: 208/102 85% MPHR: 142 100% MPHR: 167 METS: INDICATIONS: Fatigue and tachycardia. CLINICAL INFORMATION: Baseline EKG shows sinus rhythm, normal axis, normal intervals. Patient exercised on Morgan protocol for a total of 9-1/2 minutes, achieving 11 METS, 100% of predicted maximal heart rate, without chest pain or diagnostic ST-segment depression. After the stress test was completed, the patient suddenly developed difficulty in breathing, was anxious, tearful, and an A-team was activated. Patient apparently had convulsive movements. CONCLUSIONS: 1. Good exercise tolerance. 2. Negative stress test by EKG criteria. 3. Patient after the stress test was completed, in recovery developed symptoms of anxiety, persistent tachycardia, and had convulsive movements. The A-team was activated, evaluated the patient, and transferred the patient to the emergency room for further care. MMODL / IJN: [id number] /
== END | disposition home or self-care (01) ==
LOC: RADNMMAIN 10:02
PROVIDERS: ATTEND Family Medicine
DX: R53.83 Other fatigue (principal); R00.0 Tachycardia, unspecified; R00.2 Palpitations
CPT/HCPCS: 85379; 93017

== ENCOUNTER → 2022-03-05 | Outpatient (CLI) | payer MEDICAID ==
--- NOTE | 2022-04-04 10:49 | P.HOLTER ---
This is a report on the 24-hour DCG done on 03/05/2022. Baseline EKG showed sinus rhythm with normal VA and QRS duration. Average heart rate is 80 bpm with the minimal 55 and maximum 122. Occasional APCs with rare couplets and brief runs of SVT consisting of 5 beats noted. No ventricular ectopy noted. Patient complained of multiple episodes of 40/is some palpitations, did not correlate with any significant cardiac events. Final impression: #1. Sinus rhythm. #2. Grade APCs with brief runs of SVT. The maximum consisting of 5 beats #3. No ventricular ectopy #4. Patient had a multitude of symptoms including hot process and palpitations. No correlation to any significant cardiac events
--- NOTE | 2022-04-05 10:35 | HM ---
This is a report on the 24-hour DCG done on 03/05/2022. Baseline EKG showed sinus rhythm with normal MT and QRS duration. Average heart rate is 80 bpm with the minimal 55 and maximum 122. Occasional APCs with rare couplets and brief runs of SVT consisting of 5 beats noted. No ventricular ectopy noted. Patient complained of multiple episodes of 40/is some palpitations, did not correlate with any significant cardiac events. Final impression: #1. Sinus rhythm. #2. Grade APCs with brief runs of SVT. The maximum consisting of 5 beats #3. No ventricular ectopy #4. Patient had a multitude of symptoms including hot process and palpitations. No correlation to any significant cardiac events MTDD
== END | disposition home or self-care (01) ==
LOC: RADECHMAIN 07:14
PROVIDERS: ATTEND Family Medicine
DX: I47.1 Supraventricular tachycardia (principal)
CPT/HCPCS: 93225; 93226

== ENCOUNTER → 2022-03-09 | Outpatient (CLI) | payer MEDICAID | END | disposition home or self-care (01) | LOC: LABWHC1 12:39 | PROVIDERS: ATTEND Psychiatry & Neurology Neurology | DX: R41.89 Other symptoms and signs involving cognitive functions and awareness (principal); R00.0 Tachycardia, unspecified | CPT/HCPCS: 36415; 82607 ==

== ENCOUNTER → 2023-04-23 | Outpatient (CLI) | payer OTHER ==
[2023-04-23 20:16] LABS: Blood Urea Nitrogen 15.1 mg/dL (9.0-27.0); Carbon Dioxide 28.7 mmol/L (21.6-31.8); Chloride 104 mmol/L (96-109); Glucose 89 mg/dL (70-110); Potassium 4.9 mmol/L (3.5-5.5); Sodium 142 mmol/L (135-145)
[2023-04-23 22:04] LABS: Basophils # (A) 0.07 X 10*3/uL (0.00-0.10); Eosinophils # (A) 0.31 X 10*3/uL (0.04-0.35); Eosinophils % (A) 4.2 %; HCT 40.8 % (37.2-46.3); HGB 12.9 d/dL (12.0-15.0); Lymphocytes # (A) 2.29 X 10*3/uL (0.90-5.00); Lymphocytes % (A) 31.1 %; MCH 30.1 pg (27.0-32.0); MCHC 31.6 d/dL (32.0-37.0); MCV 95.1 FL (80.0-97.0); Mean Platelet Volume 10.4 FL (9.5-12.2); Monocytes # (A) 0.72 X 10*3/uL (0.20-1.00); Monocytes % (A) 9.8 %; NRBC Per 100 WBC 0 X 10*3/uL (0.00-0.01); Neutrophils # (A) 3.95 X 10*3/uL (1.80-7.70); Neutrophils % (A) 53.6 %; Platelet Count 301 X 10*3/uL (140-440); RBC 4.29 X 10*6/uL (4.10-5.20); RDW 13.4 % (11.5-14.5); WBC 7.36 X 10*3/uL (4.50-10.00)
== END | disposition home or self-care (01) ==
LOC: LABPAT 10:11
PROVIDERS: ATTEND Obstetrics & Gynecology
DX: Z01.812 Encounter for preprocedural laboratory examination (principal); N39.3 Stress incontinence (female) (male); N81.11 Cystocele, midline
CPT/HCPCS: 80051; 82565; 82947; 84520; 85025; 87086

== ENCOUNTER 2023-05-03 05:33 | Day surgery (SDC) | payer MEDICAID, OTHER ==
--- NOTE | 2023-04-17 10:45 | P.HPOB ---
History of Present Illness H&P Date: 04/16/23 Chief Complaint: Uterovaginal prolapse This is a 52 year old female presenting for surgical management of stage 3 cystocele, stage 2 uterovaginal, stage 1 rectocele, and stress urinary incontinence. She complains of a golf-ball sized bulge, difficulty defecating, pelvic discomfort, back pain, and difficulty with intercourse. She has to use laxatives to aid in bowel movements. Symptoms are exaggerated by standing, lifting, straining, having bowel movements, coughing, sneezing, and lifting heavy objects. The symptoms are relieved by lying supine. She also has pelvic pain associated with the prolapse. She complains of stress urinary incontinence as well, having daily leakage of urine with standing up, coughing, and sneezing. She has trouble making it to the restroom when the urge to urinate hits, suspicious for mixed urinary incontinence. Past Medical History Past Medical History: No Reported History Additional Past Medical History / Comment(s): High heart rate History of Any Multi-Drug Resistant Organisms: None Reported Past Surgical History: Cholecystectomy Additional Past Surgical History / Comment(s): abdominal surgery, spontaneous internal bleeding 2005. oophorectomy, d&c Past Anesthesia/Blood Transfusion Reactions: Previous Problems w/ Anesthesia, Motion Sickness, Postoperative Nausea & Vomiting (PONV) Past Psychological History: No Psychological Hx Reported Past Alcohol Use History: None Reported Past Drug Use History: None Reported - Past Family History Father Family Medical History: No Reported History Mother Family Medical History: No Reported History Medications and Allergies Home Medications Medication Instructions Recorded Confirmed Type Metoprolol Tartrate [Lopressor] 12.5 mg PO BID #60 tab 01/19/22 Rx Mirtazapine [Remeron] 15 mg PO HS 30 Days #30 tab 01/19/22 Rx Allergies Allergy/AdvReac Type Severity Reaction Status Date / Time Latex, Natural Rubber Allergy Rash/Hives Verified 01/16/22 13:16 Exam Focused physical exam is performed. This is a well-nourished female in no morelia arent distress. Chest ascultation reveals normal breath sounds bilaterally, heart ascultation reveals regular rate and rhythm, normal S1/S2. Abdomen is sot, non-tender to palpation. External genitalia are normal appearing for age. Stage 3 cystocele, stage 2 uterovaginal prolapse, and stage 1 rectocele noted. Cervix is grossly unremarkable without any discharge or lesions. Uterus is non-tender, non-enlarged, and mobile. Assessment and Plan Assessment: 52 year old female presenting for surgical management of stage 3 cystocele, stage 2 uterovaginal, stage 1 rectocele, and stress urinary incontinence who presents today for surgical management with Total Vaginal Hysterectomy, Bilateral Salpingectomy, anterior repair, TVT midurethral sling, cystoscopy with possible laparotomy, possible posterior repair. Plan: Risks, benefits, and alternatives to surgery were discussed with the patient including risk of bleeding, infection, damage to surrounding structures including bladder/bowels/ureters/ovaries, postoperative VTE, laparotomy, urinary retention, indwelling catheterization, vaginal mesh erosion. The patient unde rstands these risks and desires to proceed with Total Vaginal Hysterectomy, Bilateral Salpingectomy, anterior repair, TVT midurethral sling, cystoscopy with possible laparotomy, possible posterior repair. Time with Patient: Less than 30
[2023-04-25 10:12] VITALS: BMI 24.0
[2023-05-03] MEDS ORDERED: DEXAMETHASONE SOD PHOSPHATE 4 MG/ML 1 ML VIAL IV ONE (05:48)
[2023-05-03] MEDS ORDERED: ONDANSETRON 4 MG/2 ML VIAL IVP ONE (05:48)
[2023-05-03] MEDS ORDERED: LACTATED RINGERS 1,000 ML IV SCH (05:48)
[2023-05-03] MEDS ORDERED: SCOPOLAMINE 1 MG/72 HR PATCH TRANSDERM ONE (06:30)
[2023-05-03] MEDS ORDERED: MIDAZOLAM 2 MG/2 ML VIAL IVP ONE (06:40)
[2023-05-03] MEDS ORDERED: fentaNYL (PF) 50 MCG/1 ML VIAL IVP ONE (06:41)
[2023-05-03] MEDS ORDERED: HYDROmorphone 0.5 MG/0.5 ML SYRINGE IVP PRN (07:00)
[2023-05-03] MEDS ORDERED: fentaNYL (PF) 50 MCG/ML 2 ML AMP ONE (07:25)
[2023-05-03] MEDS ORDERED: LIDOCAINE 2% INJ 20 MG/ML (2 ML VIAL) ONE (07:25)
[2023-05-03] MEDS ORDERED: MIDAZOLAM 2 MG/2 ML VIAL ONE (07:25)
[2023-05-03] MEDS ORDERED: SUCCINYLCHOLINE CHLORIDE 200 MG/10 ML VIAL IV ONE (07:25)
[2023-05-03] MEDS ORDERED: METHYLENE BLUE 50 MG/10 ML AMPUL ONE (07:25)
[2023-05-03] MEDS ORDERED: MORPHINE SULFATE (PF) 0.3 MG/0.3 ML SYR ONE (07:25)
[2023-05-03] MEDS ORDERED: diphenhydrAMINE 50 MG/ML 1 ML VIAL ONE (07:25)
[2023-05-03] MEDS ORDERED: PROPOFOL 10 MG/ML 20 ML VIAL IV ONE (07:25)
[2023-05-03] MEDS ORDERED: VASOPRESSIN 20 UNIT/ML 1 ML VIAL SQ ONE (07:54)
[2023-05-03] MEDS ORDERED: GENTAMICIN 80 MG/2 ML (MDV) VIAL IRRIGATION ONE ×2 (08:24→10:11)
[2023-05-03] MEDS ORDERED: ESTRADIOL 0.1 MG/GM VAGINAL CREAM 42.5 GM TUBE VAGINAL ONE ×2 (08:25→10:18)
[2023-05-03] MEDS ORDERED: LACTATED RINGERS 1,000 ML IV ONE (09:41)
[2023-05-03] MEDS ORDERED: BACITRACIN ZINC 500 UNIT/GM OINT 28.4 GM TUBE TOPICAL ONE (10:22)
[2023-05-03] MEDS ORDERED: ONDANSETRON 4 MG/2 ML VIAL IVP PRN (10:44)
[2023-05-03] MEDS ORDERED: METOCLOPRAMIDE 5 MG/ML 2 ML VIAL IVP PRN (10:44)
[2023-05-03] MEDS ORDERED: SIMETHICONE 80 MG CHEWABLE PO PRN (10:44)
[2023-05-03] MEDS ORDERED: KETOROLAC 15 MG/ML 1 ML VIAL IVP PRN (10:44)
--- NOTE | 2023-05-03 11:06 | P.OP ---
Date of Procedure: 05/03/23 Preoperative Diagnosis: 1. Grade 2 Uterovaginal Prolapse 2. Grade 3 Cystocele 3. Grade 1 Rectocele 4. Stress Urinary Incontinence Postoperative Diagnosis: 1. Grade 3 Uterovaginal Prolapse 2. Grade 2 Cystocele 3. Grade 1 Rectocele 4. Stress Urinary Incontinence Procedure(s) Performed: Total vaginal hysterectomy, TVT Midurethral Sling, Cystoscopy Implants: [place] Advantage Fit TVT Midurethral Sling Anesthesia: KATEA Surgeon: Krysten Rogers Ready To Wear Department Manager #1: Rina Butler Estimated Blood Loss (ml): 200 IV fluids (ml): 700 Urine output (ml): 200 Pathology: other (uterus and cervix) Condition: stable Disposition: floor Indications for Procedure: 52 year old female presenting for surgical management of stage 3 cystocele, stage 2 uterovaginal, stage 1 rectocele, and stress urinary incontinence who presents today for surgical management with Total Vaginal Hysterectomy, Bilateral Salpingectomy, anterior repair, TVT midurethral sling, cystoscopy with possible laparotomy, possible posterior repair. Risks, benefits, and alternatives to surgery were discussed with the patient including risk of bleeding, infection, damage to surrounding structures including bladder/bowels/ureters/ovaries, postoperative VTE, laparotomy, urinary retention, indwelling catheterization, vaginal mesh erosion. The patient understands these risks and desires to proceed with Total Vaginal Hysterectomy, Bilateral Salpingectomy, anterior repair, TVT midurethral sling, cystoscopy with possible laparotomy, possible posterior repair. Operative Findings: Normal-appearing uterus. Fallopian tubes and ovaries very high in the pelvis and too difficulty to remove vaginal, decision was made to leave in situ. On cystoscopy, normal bladder wall with no suture, trauma, or foreign body in the bladder or urethra. Biladeral ureteral jets were visualized. Description of Procedure: Prior to the beginning of the procedure the team paused to verify the patient's identity, as well as the procedure to be performed and the correct side/site. All equipment required was ready and available. The patient was positioned appropriately. Patient was cleaned and draped and legs were placed in lithotomy position using Kiel stirrups. Barbosa catheter was placed to drain the bladder. A weighted speculum was placed in the posterior vaginal vault. The cervix was grasped with a double-tooth tenaculum. Vasopressin was injected circumferentially around the cervix. With downward traction, a circumferential incision was made along the vaginal mucosa overlying the reflection. This allowed dissection and entrance into the posterior cul-de-sac. An 0-Vicryl suture was placed to tag the posterior peritoneum. At this time, the uterosacral ligaments were visualized. These were clamped and ligated with 0-Vicryl suture. The uterosacral ligaments were held bilaterally. The cervicovesical space was then created by both blunt and sharp dissection allowing the cardinal ligaments to be visualized. These were clamped and ligated with 0-Vicryl suture as well. Once in the cervicovesical space the uterosacral-cardinal ligament complex was completely ligated with 0-Vicryl suture. The uterine arteries were clamped and ligated with 0-Vicryl suture. The brett clamps were moved sequentially upward on the uterus until a small adnexal pedicle remained. The anterior cul-de-sac was now entered bluntly. The uterus was inverted and the pedicles were cut. The uterine specimen was delivered and sent for pathology. Bilateral uteroovarian ligaments were doubly ligated first with a transfixing 0-Vicryl suture and then reinforced with a free 0-Vicryl tie in the usual fashion. Bleeding from bilateral pedicles was noted and hemostasis was achieved with 0-Vicryl sutures in a [id number] fashion. The decision was made to perform cystoscopy at this time to rule out compromise to the ureters. Given that the normal anatomy of the bladder was distorted from the vaginal cuff still being open at this time, only the left ureters was able to be visualized with normal efflux. Methylene blue was administered IV to better visualized the right ureter, but it was still unable to be seen. The large weighted speculum was removed and replaced with the small weighted speculum. The peritoneal layer was closed with the 0-Vicryl suture in a purse-string fashion. A modified Olivares Culdoplasty was performed with the uterosacral ligaments held by pieces of 0-Vicryl. The vaginal cuff inferior and superior to the level of the Olivares Culdoplasty was closed with 0-Vicryl suture in a running fashion. After closure of the vaginal cuff, the vaginal apex appeared well supported and the anterior and posterior gurrola appeared to be much better supported. The decision was made to defer the anterior and posterior repairs at this time, given that it no longer appeared indicated. Attention was then turned to the TVT part of the procedure. Two sites were marked on the anterior abdominal wall with a marking pen, one 1 fingerbreadth to the left and the other 1 fingerbreadth to the right of the midline, just above the pubic bone. Attention was now turned to the vaginal field where a 18-Latvian Barbosa catheter was already present, and the urine was drained. Lone star retractor was placed. The anterior vaginal wall over the location of the mid urethra was then injected with 1% lidocaine with epinephrine in the mid portion of the vagina and the lateral aspects heading to the inferior surface of the pubic bone bilaterally. Two Allis clamps were then placed approximately 2 cm apart with the mid portion of the Allis clamps corresponding to the mid portion of the urethra as determined by palpation of the Barbosa within the patient's urethra. A scalpel was then used to incise between the 2 Allis clamps, and Metzenbaum scissors were used to dissect the vaginal mucosa off the overlying urethra heading to the inferior surface of the pubic bone bilaterally. The Desara Blue TVT trocar coupled to the plastic introducer sheath was now placed through the right sided anterior vaginal wall channel, and the trocar was rotated through the right retropubic space with careful attention being paid to stay beneath and behind the pubic bone as it rotated through the space up to the previously made oel on the right anterior abdominal wall. The TVT Desara Blue trocar was uncoupled from the introducer sheath and the sheath was tagged and left in place. The TVT trocar was now placed into the second introducer sheath and positioned within the left anterior vaginal wall channel and rotated through the left retropubic space with careful attention being paid to stay beneath and behind the pubic bone as it rotated through this site up to the previously made ole on the left anterior abdominal wall. 70-degree cystourethroscopy confirmed no trocar placement or any trauma to the bladder from either side, and no trauma to the urethra. Therefore, the bladder was drained, and the mesh was brought through the abdominal wall site. The mesh was brought to sit underneath of the urethra without any tensioning at all as determined by a hemostat used as a spacer between the urethra and the sling. The hemostat as a spacer was used to stabilize the position of the mesh as plastic sheaths were removed through the abdominal wall site. The skin wounds were closed with the use of skin glue after trimming the mesh. The vaginal wound was closed with a running stitch of 2-0 Vicryl. Cystourethroscopy was repeated after the bladder anatomy was normalized with 70 degree scope, and confirmed no injury or stitch to the bladder. Bilateral efflux was noted from both ureteric orifices. After completion of the case, a barbosa catheter was inserted and noted to move freely into the urethra without tension. Clear urine was noted to drain from the catheter. Excellent hemostasis was noted at the end of the case. The vagina was packed with 1-inch iodoform packing coated in vaginal estrace cream. All instruments were removed from the patient. She was cleaned, dried, and awakened from anesthesia without difficulty. Sponge, lap, instrument, and needle counts were correct x2. She was taken to the PACU in stable condition.
--- NOTE | 2023-05-03 11:35 | P.ANPRN ---
Procedure Note - Anesthesia - Epidural/Spinal Spinal Time Out Performed: Yes Date of Procedure: 05/03/23 Procedure Start Time: 06:41 Procedure Stop Time: 06:46 Location of Patient: PreOp Indication: Acute Post-Operative Pain, Requested by Surgeon (shital) Sedation Type: Sedate with meaningful contact maintained Preparation: Sterile Prep Number of Attempts: 1 Position: Sitting Catheter: None Needle Guage: 25 Injectate: DM 300 mcg Fent 25mcg Blood Aspirated: No Pain Paresthesia on Injection Noted: No Events: Uneventful and Well Tolerated
--- NOTE | 2023-05-03 16:34 | XR ---
EXAMINATION TYPE: XR IVP DATE OF EXAM: 05/03/2023 COMPARISON: None HISTORY: Vaginal hysterectomy, possible ureteral compromise TECHNIQUE: Overhead radiographs were obtained following intravenous administration of 75 mL Isovue 37 0. FINDINGS: Guide Changer view: Normal colonic bowel gas is present. Mild scoliosis within the lumbar spine which can be positional. Following the intravenous administration of contrast there is prompt uptake and excretion of the cont rast in the bilateral kidneys. Right renal calyces and infundibula have mild prominence. Mild promine nce of the right ureter is present. Left renal calyces infundibula and renal pelvis appears normal. Left ureter extends to the urinary bl adder on sequential images. Right ureter is able to retract over sequences to the pelvic inlet. No persistent dilatation is evide nt. Some faint visualization is not excluded on the 15 minute LPO view however, the distal right uret er is not well documented. No suspicious pooling or free spill of contrast is identified. Extravasation is not felt to be presen t. Images were continued to 45 minutes. IMPRESSION: 1. No suspicious changes to suggest obstruction or extravasation from the ureter. 2. The distal right pelvic ureter could not be documented during the exam.
[2023-05-03] MEDS: ACETAMINOPHEN TAB 500 MG TAB PO SCH ×3 (17:39→23:53)
[2023-05-03] MEDS: DOCUSATE 100 MG CAP PO SCH (21:26)
[2023-05-03] MEDS ORDERED: DILTIAZEM CD 240 MG CAP.ER.24H PO SCH (21:30)
[2023-05-04] MEDS: ACETAMINOPHEN TAB 500 MG TAB PO SCH ×2 (05:55→12:00)
[2023-05-04 07:31] LABS: Basophils % (A) 0 %; Eosinophils # (A) 0.1 k/uL (0-0.7); Eosinophils % (A) 1 %; HCT 32.7 % (34.0-46.0); HGB 10.6 gm/dL (11.4-16.0); Lymphocytes # (A) 2.7 k/uL (1.0-4.8); Lymphocytes % (A) 19 %; MCH 30.3 pg (25.0-35.0); MCHC 32.3 g/dL (31.0-37.0); Mean Platelet Volume 7.6; Monocytes # (A) 1.1 k/uL (0-1.0); Monocytes % (A) 8 %; Neutrophils % (A) 72 %; Platelet Count 260 k/uL (150-450); RBC 3.48 m/uL (3.80-5.40); RDW 12.9 % (11.5-15.5)
[2023-05-04 07:49] LABS: African American GFR (CKD) >90 (>60 ml/min/1.73 sqM); Anion Gap 5 mmol/L; Blood Urea Nitrogen 14 mg/dL (7-17); Calcium 8.8 mg/dL (8.4-10.2); Carbon Dioxide 29 mmol/L (22-30); Chloride 103 mmol/L (98-107); Glucose 91 mg/dL (74-99); Non-African American GFR(CKD) >90 (>60 ml/min/1.73 sqM); Potassium 4.2 mmol/L (3.5-5.1); Sodium 137 mmol/L (137-145)
[2023-05-04] MEDS: DOCUSATE 100 MG CAP PO SCH (08:42)
[2023-05-04] MEDS ORDERED: polyethylene glycoL 3350 17 GM POWD.PACK PO SCH (09:00)
--- NOTE | 2023-05-04 09:14 | P.GSCN ---
History of Present Illness Consult date: 05/04/23 History of present illness: 52 yo female who underwent a vaginal hysterectomy with mid urethral sling and anterior repair yesterday. There was difficulty with bleeding on the right side of the hysterctomy requiring extra stitches to control there was question of ureteral injury right. Subsequent cysto by Dr Rogers idnetified clear urine output from the right. A post op ivp was performed identifying mild caliectasis on the right but prompt function and excretion. The right distal ureter was not seen. There was no extravasation of contrast seen. Post op the urine has remained clear, her vitals have been stable and she is pain free. The patient denies urologic history other than the stress incontinence. There is no history kidney stones kidney surgery urinary tract infections blood in the urine or flank pain. Is not nor she had any flank pain postoperatively. Review of Systems All systems: negative - Constitutional Denies fever, Denies weight loss - EENT Eyes: denies blurred vision Ears, nose, mouth and throat: Denies dysphagia - Cardiovascular Denies chest pain, Denies shortness of breath - Respiratory Denies cough, Denies 7 - Gastrointestinal Reports as per HPI - Genitourinary Genitourinary: Denies dysuria, Denies hematuria - Integumentary Denies rash, Denies unusual bruising - Neurological Denies headaches, Denies syncope - Hematologic/Lymphatic Denies easy bleeding, Denies easy bruising Past Medical History Past Medical History: No Reported History Additional Past Medical History / Comment(s): High heart rate, CURRENTLY HAS UTERINE PROLASPE, CYSTOCELE AND RECTOCELE,. episodes that come and go that involve seizure like activity but are not diagnosed as seizures History of Any Multi-Drug Resistant Organisms: None Reported Past Surgical History: Cholecystectomy Additional Past Surgical History / Comment(s): abdominal surgery, spontaneous internal bleeding 2005. oophorectomy, d&c Past Anesthesia/Blood Transfusion Reactions: Previous Problems w/ Anesthesia, Motion Sickness, Postoperative Nausea & Vomiting (PONV) Additional Past Anesthesia/Blood Transfusion Reaction / Comm: SEVERE PONV Past Psychological History: No Psychological Hx Reported Smoking Status: Never smoker Past Alcohol Use History: None Reported Past Drug Use History: None Reported - Past Family History Father Family Medical History: No Reported History Mother Family Medical History: No Reported History Medications and Allergies Home Medications Medication Instructions Recorded Confirmed Type Diltiazem Cd [Cardizem CD] 240 mg PO DAILY 04/25/23 05/03/23 History Docusate Sodium [Dok] 100 mg PO BID 04/25/23 05/03/23 History Multivit with Calcium,Iron,Min 1 each PO DAILY 04/25/23 05/03/23 History [Women's Multivitamin] polyethylene glycoL 3350 [Miralax] 17 gm PO DAILY 04/25/23 05/03/23 History Allergies Allergy/AdvReac Type Severity Reaction Status Date / Time adhesive Allergy Rash/Hives Verified 05/03/23 12:55 Latex, Natural Rubber Allergy Rash/Hives Verified 05/03/23 12:55 Surgical - Exam Vital Signs Temp Pulse Resp BP Pulse Ox 97.5 F L 82 16 133/68 99 05/03/23 06:15 05/03/23 06:15 05/03/23 06:15 05/03/23 06:15 05/03/23 06:15 - General well developed, well nourished, no distress - Eyes normal ocular movement, no icteric - ENT no hearing loss, no congestion - Neck no masses, trachea midline - Respiratory normal respiratory effort, clear to auscultation - Abdomen Abdomen: soft, non tender, no guarding, no rigid, no rebound - Integumentary no rash, no abnormal pigmentation - Neurologic no disoriented, no combative - Psychiatric oriented to time, oriented to person, oriented to place, speech is normal, memory intact Results - Labs 05/04/23 06:59 05/04/23 06:59 - Imaging Additional studies: ivp reviewed Assessment and Plan Assessment: Impression: Status post vaginal hysterectomy, T OT, anterior repair. Rule out ureteral injury right Recommendations: Although the surgery was more difficult on the right side due to bleeding and there does not appear to be any notable ureteral injury. She has had no pain. Clinically she has done very well. Laparoscopic clear there was urine coming from the right ureteral orifice. There is been no blood in the urine. The IVP is performed showing some mild caliectasis on the right which just could be due to edema. There is a prompt nephrogram without evidence of malignant obstruction or extravasation. From a urologic standpoint I do not think there is any injury to the ureter. A follow-up ultrasound in 1 month to make sure the [place] has not progressed would be appropriate. This has been discussed and understood with the patient. Time with Patient: Greater than 30
[2023-05-04 09:46] VITALS: RESP 20
[2023-05-04 09:48] VITALS: BP 94/56; PULSE 75; TEMP 98.3
--- NOTE | 2023-05-04 11:41 | P.PN ---
Subjective Progress Note Date: 05/04/23 Principal diagnosis: s/p total vaginal hysterectomy, TVT Midurethral Sling, Cystoscopy The patient is doing well this morning and had no acute events overnight. She has no complaints this morning. She reports minimal vaginal spotting, passing flatus, voiding without difficulty, ambulating, and eating/drinking without nausea or vomiting. She denies chest pain, shortness of breathing, fevers, or chills overnight. She denies pain or swelling in the legs. She denies flank pain. Objective - Vital Signs Vital signs: Vital Signs Temp 98.3 F 05/04/23 08:00 Pulse 75 05/04/23 08:00 Resp 20 05/04/23 08:00 BP 94/56 05/04/23 08:00 Pulse Ox 98 05/04/23 08:00 FiO2 Intake & Output 05/03/23 05/04/23 05/04/23 18:59 06:59 18:59 Intake Total 950 1620 Output Total 700 2200 300 Balance 250 -580 -300 Weight 76.2 kg Intake: IV 950 Oral 1620 Output: Urine 500 2200 300 Estimated Blood Loss 200 Other: Voiding Method Indwelling Catheter # Voids 1 - Exam Focused physical exam is performed. Abdomen is soft, non-tender. TVT incisions on the mons pubis are clean, dry, and intact with skin glue. Extremities are soft, non-tender. - Constitutional General appearance: Present: average body habitus - Labs CBC & Chem 7: 05/04/23 06:59 05/04/23 06:59 Labs: Abnormal Lab Results - Last 24 Hours (Table) 05/04/23 Range/Units 06:59 WBC 14.0 H (3.8-10.6) k/uL RBC 3.48 L (3.80-5.40) m/uL Hgb 10.6 L (11.4-16.0) gm/dL Hct 32.7 L (34.0-46.0) % Neutrophils # 10.0 H (1.3-7.7) k/uL Monocytes # 1.1 H (0-1.0) k/uL Assessment and Plan Assessment: 52 year old female presenting for surgical management with pelvic organ prolapse and stress urinary incontinence now POD#1 s/p Total Vaginal Hysterectomy, TVT midurethral sling, Cystoscopy Plan: 1. Postoperative. Patient meeting all postoperative milestones appropriately. 2. Rule out right ureteral injury. Moderate bleeding occured near the right ovarian vessels during the case for which sutures were used to control the bleed ing. Cystoscopy was done with urine clearly seen coming from the right ureter. IVP was obtained postoperative which showed mild dilation of right ureter compared to left, no signs of obstruction and no extravasation of contrast. Urology was consulted and feels this is just due to postoperative edema surrounding the right ureter. The patient is to follow up in [address] Hernandes with possible ultrasound to assess the size of the right kidney and ureter. Dispo: Will discharge home today with follow up in the office in 6 weeks. Time with Patient: Less than 30 (10 minutes)
--- NOTE | 2023-05-04 11:49 | P.DS ---
Providers Date of admission: 05/03/2023 Expected date of discharge: 05/04/23 Attending physician: Krysten Rogers MD Primary care physician: Derek Bertrandhven [facility] Course: This is a 52 year old female with pelvic organ prolapse and stress urinary incontinence who is POD#1 s/p total vaginal hysterectomy, TVT Midurethral Sling, Cystoscopy. During the case, there was moderate blood loss from the right adnexal pedicles requiring suture ligation to control the bleeding. Because of the presumed proximity to the right ureter, IVP was performed post-operative which showed mild dilation of right ureter. No extravasation of contrast was noted to suggest obstruction of the right ureter. Urology was consulted on the patient and agree that the mild dilation seen was likely secondary to postoperative edema. No evidence to suggest obstruction of the right ureter. The patient will follow up with urology in 4 weeks. The patient is doing well this morning and had no acute events overnight. She has no complaints this morning. She desires discharge home this today. She reports minimal vaginal spotting, passing flatus, voiding without difficulty (with post-void residual <100), ambulating, and eating/drinking without nausea or vomiting. She denies chest pain, shortness of breathing, fevers, or chills overnight. She denies pain or swelling in the legs. She denies flank pain. Postoperative restrictions are reviewed with the patient including pelvic rest for 6 weeks. The patient is encouraged to call the office if she experiences any heavy bleeding, foul- smelling discharge, fevers/chills, flank pain, or any if she has any other concerns. She will follow up in the office with in 6 weeks for postoperative exam. All questions are answered. Assessment: This is a 52 year old female with pelvic organ prolapse and stress urinary incontinence who is POD#1 s/p total vaginal hysterectomy, TVT Midurethral Sling, Cystoscopy. Patient Condition at Discharge: Good Plan - Discharge Summary Discharge Rx Participant: No New Discharge Prescriptions: No Action polyethylene glycoL 3350 [Miralax] 17 gm PO DAILY Diltiazem Cd [Cardizem CD] 240 mg PO DAILY Docusate Sodium [Dok] 100 mg PO BID Multivit with Calcium,Iron,Min [Women's Multivitamin] 1 each PO DAILY Discharge Medication List Diltiazem Cd [Cardizem CD] 240 mg PO DAILY 04/25/23 [History] Docusate Sodium [Dok] 100 mg PO BID 04/25/23 [History] Multivit with Calcium,Iron,Min [Women's Multivitamin] 1 each PO DAILY 04/25/23 [History] polyethylene glycoL 3350 [Miralax] 17 gm PO DAILY 04/25/23 [History] Follow up Appointment(s)/Referral(s): Trevor Hernandes MD [STAFF PHYSICIAN] - 4 Weeks (hospital follow up) Krysten Rogers MD [STAFF PHYSICIAN] - 6 Weeks Patient Instructions/Handouts: Vaginal Hysterectomy (DC), Bladder Sling for Women (DC) Activity/Diet/Wound Care/Special Instructions: Pelvic rest for 6 weeks, no heavy lifting for 4 weeks Discharge Disposition: HOME SELF-CARE
--- NOTE | 2023-05-04 20:02 | P.PN ---
Progress Note - Text 05/04/23 821am 52-year-old female status post robotic vaginal hysterectomy. Patient seen and evaluated for postop control, patient has a VAS of 1 with no complains of nausea vomiting with mild pruritus which should subside soon
== END 2023-05-04 12:00 | disposition home or self-care (01) ==
LOC: OR 05:33 → 4FBP 10:40 → OR 05-04 12:00
PROVIDERS: ATTEND Obstetrics & Gynecology
DX: D25.1 Intramural leiomyoma of uterus (principal); N39.3 Stress incontinence (female) (male); N81.4 Uterovaginal prolapse, unspecified; N81.6 Rectocele; Z90.721 Acquired absence of ovaries, unilateral; Z79.899 Other long term (current) drug therapy; Z91.040 Latex allergy status; Z86.73 Personal history of transient ischemic attack (TIA), and cerebral infarction without residual deficits
CPT/HCPCS: 86900; 86901; 80048; 85025; 86850; 74400; 58260; 57288; 52005; J2250; J0330; J1200; J1100; J0690; J2405; J2274; J3010 ×2; J1580; J1885; J2704; Q9968; Q9967; J2001; 88307

== ENCOUNTER 2023-09-04 09:44 | Day surgery (SDC) | payer OTHER ==
[~2023-09-04 09:44] MED LIST: LACTATED RINGERS 1,000 ML IV SCH; LIDOCAINE 1% (10MG/ML) FOR IV START INTRADERMA PRN
[2023-09-04] MEDS ORDERED: LACTATED RINGERS 1,000 ML IV ONE (10:25)
[2023-09-04 11:05] VITALS: TEMP 97.9
[2023-09-04] MEDS ORDERED: ONDANSETRON 4 MG/2 ML VIAL ONE (11:23)
[2023-09-04] MEDS ORDERED: PROPOFOL 10 MG/ML 20 ML VIAL IV ONE (11:23)
--- NOTE | 2023-09-04 12:01 | P.PCN ---
Date of Procedure: 09/04/23 Procedure(s) Performed: BRIEF HISTORY: Patient is a 53-year-old pleasant white female scheduled for an elective colonoscopy as a part of evaluation change in bowel habits for the last 6 months duration. PROCEDURE PERFORMED: Colonoscopy with biopsy. PREOPERATIVE DIAGNOSIS: Change in bowel habits.. IV sedation per Anesthesia. PROCEDURE: After informed consent was obtained, the patient, was brought into the endoscopy unit. IV sedation was administered by Anesthesia under continuous monitoring. Digital rectal examination was normal. Initially the Olympus CF-160 flexible video colonoscope was then inserted in the rectum, gradually advanced into the cecum without any difficulty. Careful examination was performed as the scope was gradually being withdrawn. Ileocecal valve was visualized and appeared normal. Prep was excellent. 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 Mucosa of the cecum, appeared normal. ascending colon, transverse colon, descending colon, sigmoid colon, and rectum appeared normal. Retroflexion was performed in the rectum and small internal hemorrhoids were seen. The patient tolerated the procedure well. IMPRESSION: No evidence of colorectal neoplasia Inverted appendix Small internal hemorrhoids RECOMMENDATIONS: Findings of this examination were discussed with the patient as well as a family.. She was advised to follow with the biopsy results. Continue with MiraLAX and fiber supplements as needed. Recommend repeat screening colonoscopy in 10 years.
[2023-09-04 12:20] VITALS: RESP 20
[2023-09-04 12:47] VITALS: BP 119/76; PULSE 88
== END 2023-09-04 12:32 | disposition home or self-care (01) ==
LOC: ORWHC2ENDO 09:44
PROVIDERS: ATTEND Internal Medicine Gastroenterology
DX: K52.9 Noninfective gastroenteritis and colitis, unspecified (principal); K64.8 Other hemorrhoids; I10 Essential (primary) hypertension; G40.89 Other seizures; Z98.890 Other specified postprocedural states; Z91.048 Other nonmedicinal substance allergy status; Z91.040 Latex allergy status; Z79.899 Other long term (current) drug therapy
CPT/HCPCS: 88305; 45380; J2405; J2704